=== PATIENT | male | born 1985 | race Caucasian/White ===

== ENCOUNTER 2019-06-03 09:43 | Outpatient (RCR) | payer MEDICARE, MEDICAID, SELFPAY | END 2019-06-21 00:01 | LOC: WOUND 09:43 | PROVIDERS: Family Provider Internal Medicine; Visit Provider Surgery | DX: I96 Gangrene, not elsewhere classified (principal); L89.324 Pressure ulcer of left buttock, stage 4 | CPT/HCPCS: 11044; G0463 ==

== ENCOUNTER 2019-08-31 17:21 | Emergency (ER) | payer MEDICARE, MEDICAID, SELFPAY ==
[2019-08-31 17:55] VITALS: BP 124/78; PULSE 106; RESP 16; TEMP 37.2; O2SAT 97; BMI 22.8
[2019-08-31 18:36] LABS: Basophils % 0.4 %; Eosinophils # 0.3 10^3/uL (0.0-0.8); Eosinophils % 2.9 %; Hematocrit 43.9 % (42.0-52.0); Hemoglobin 14.2 g/dL (11.7-16.6); Lymphocytes # 2.1 10^3/uL (0.8-4.8); Lymphocytes % 22.2 %; Mean Corpuscular HGB Conc 32.3 g/dL (30.0-36.0); Mean Corpuscular Hemoglobin 29.4 pg (28.0-34.0); Mean Corpuscular Volume 90.9 fL (80-94); Mean Platelet Volume 9.7 fL (7.4-10.4); Monocytes # 0.8 10^3/uL (0.2-0.9); Monocytes % 8.2 %; Neutrophils # 6.3 10^3/uL (1.8-7.7); Neutrophils % 65.9 %; Nucleated Red Blood Cells % 0 %; Platelet Count 277 10^3/cmm (130-400); Red Blood Count 4.83 10^6/uL (4.1-5.3); Red Cell Distribution Width 14.5 % (12.1-15.1); White Blood Count 9.6 10^3/uL (4.0-10.0)
[2019-08-31 18:50] LABS: Alanine Aminotransferase 11 U/L (0-41); Alkaline Phosphatase 103 IU/L (40-130); Anion Gap 14.9 (5-19); Aspartate Amino Transferase 13 U/L (0-40); Blood Urea Nitrogen 7 mg/dL (6-20); Calcium 9.5 mg/dL (8.5-10.5); Carbon Dioxide 27 mmol/L (22-29); Chloride 97 mmol/L (98-107); Creatinine Clr Calc Pharmacy 148.3638; Globulin 3.6 g/dL (1.3-4.6); Glomerular Filtration Rate 129.1 mL/min (90-130); Glucose 95 mg/dL (65-115); Osmolality Calculated 276 mOsm/kg (285-295); Potassium 3.9 mmol/L (3.5-5.1); Sodium 135 mmol/L (136-145); Total Bilirubin 0.2 mg/dL (0.15-1.2); Total Protein 7.6 g/dL (6.6-8.7)
--- NOTE | 2019-08-31 19:36 | W.ED.ABDPA2 ---
HPI - Abdominal Pain General: Chief Complaint: Abdominal Pain Stated Complaint: ABD PAIN Time Seen by Provider: 08/31/19 19:30 Source: patient Mode of arrival: ambulatory Limitations: no limitations History of Present Illness: HPI narrative: Patient comes in today with complaints of fever on and off since Thursday. Patient appears well. Patient appears in no pain. Patient is a paraplegic and has a chronic wound ulcer to the left hip area. Respirations are even. Vital signs are normal. Associated Symptoms: Reports fever(s) Review of Systems General: Reports: 10 or more systems reviewed and unremarkable except in HPI and below Const: Reports: fever PFSH ED PFSH: Social History Smoking and tobacco status: current every day smoker Physical Exam Const: COMMON NORMALS: no apparent distress and oriented x3 GENERAL APPEARANCE: cooperative HENMT: COMMON NORMALS: normocephalic, external ears normal, EAC's normal, TM's normal bilaterally and external nose normal HEAD & SCALP: normal to inspection and normocephalic FACE & SINUS: normal facial exam NOSE: external nose normal GENERAL EAR: hearing not grossly impaired EXTERNAL EAR: Yes external ears normal EXTERNAL AUDITORY CANAL: EAC's normal TYMPANIC MEMBRANE: TM's normal bilaterally MOUTH: oral and palatal mucosa normal THROAT: posterior oropharynx normal Eye: COMMON NORMALS: PERRL and EOMs intact bilaterally PUPIL: Yes PERRL Neck/C-Spine: COMMON NORMALS: full ROM and no lymphadenopathy Lymph: LYMPHATIC: no lymphedema noted Chest: COMMONS NORMALS: inspection of chest normal and palpation of chest normal Resp: COMMON NORMALS: normal respiratory effort and clear to auscultation bilaterally AUSCULTATION: clear to auscultation bilaterally Cardio: COMMON NORMALS: regular rate and regular rhythm RATE: regular rate RHYTHM: regular rhythm GI: COMMON NORMALS: normal to inspection, nondistended, normoactive bowel sounds and non-tender : COMMON NORMALS: Yes no CVA tenderness BLADDER/KIDNEY EXAM: Yes no CVA tenderness Back/Pelvis: COMMON NORMALS: no CVA tenderness and thoracic and lumbar spine normal to inspection Extremity: COMMON NORMALS: normal to inspection GENERAL: No edema Neuro: COMMON NORMALS: oriented x3, moves all extremities and no focal motor deficits Psych: COMMON NORMALS: mental status grossly normal and cooperative Skin: NARRATIVE SKIN EXAM: Examination of the wound to the left buttock notes a packed wound with no surrounding area of tissue redness or discoloration. Course Vital Signs: Vital signs: Vital Signs Temperature 99 F 08/31/19 17:55 Pulse Rate 106 H 08/31/19 17:55 Respiratory Rate 16 08/31/19 17:55 Blood Pressure 124/78 08/31/19 17:55 Pulse Oximetry 97 08/31/19 17:55 MDM - Abdominal Pain MDM Narrative: Medical decision making narrative: Patient comes in today with complaints of occasional fever over the last 3 to 4 days. Patient appears well. Patient appears no acute distress. Patient is at this time homeless. On exam patient's abdomen soft nontender. Respirations are even lungs are clear to auscultation. Patient has a chronic decubitus ulcer to the left hip that is draining clear fluid and has packing without any signs of surrounding redness were fever. Differential diagnosis includes sepsis, wound infection, urinary tract infection, pneumonia, malingering. Laboratory values noted no elevation white blood cell count. Sodium was 135 and potassium 3.9. Lactate was 1.4. Vital signs were normal. Urinalysis did have some nitrates in it but otherwise was similar to previous labs. Reviewed exam with patient with recommendations for 7-day course of Bactrim for the urinalysis abnormality. Otherwise patient had no other significant signs of infection. CT scan of the pelvis noted no significant changes and suggestive of a chronic osteomyelitis to the hip area of the left side which was not significant for any changes. Patient reports understanding of care plan and need for follow-up or return as needed for worsening signs or symptoms. Lab Data: Labs: Lab Results 08/31/19 08/31/19 08/31/19 Range/Units 18:25 18:25 18:25 WBC 9.6 (4.0-10.0) 10^3/ uL RBC 4.83 (4.1-5.3) 10^6/u L Hgb 14.2 (11.7-16.6) g/dL Hct 43.9 (42.0-52.0) % MCV 90.9 (80-94) fL MCH 29.4 (28.0-34.0) pg MCHC 32.3 (30.0-36.0) g/dL RDW 14.5 (12.1-15.1) % Plt Count 277 (130-400) 10^3/c mm MPV 9.7 (7.4-10.4) fL Neut % (Auto) 65.9 % Lymph % (Auto) 22.2 % [place] % (Auto) 8.2 % Eos % (Auto) 2.9 % Baso % (Auto) 0.4 % Neut # (Auto) 6.3 (1.8-7.7) 10^3/u L Lymph # (Auto) 2.1 (0.8-4.8) 10^3/u L [place]wood # (Auto) 0.8 (0.2-0.9) 10^3/u L Eos # (Auto) 0.3 (0.0-0.8) 10^3/u L Baso # (Auto) 0.0 (0.0-0.1) 10^3/u L Nucleated RBC % (a uto) 0 % Nucleated RBCs # 0.0 /100WBC Sodium 135 L (136-145) mmol/L Potassium 3.9 (3.5-5.1) mmol/L Chloride 97 L (98-107) mmol/L Carbon Dioxide 27 (22-29) mmol/L Anion Gap 14.9 (5-19) BUN 7 (6-20) mg/dL Creatinine 0.7 (0.7-1.2) mg/dL GFR Calculation 129.1 (90-130) mL/min Glucose 95 (65-115) mg/dL Calculated Osmolal ity 276 L (285-295) mOsm/k g Lactic Acid 1.3 (0.5-2.2) mmol/L Calcium 9.5 (8.5-10.5) mg/dL Total Bilirubin 0.2 (0.15-1.2) mg/dL AST 13 (0-40) U/L ALT 11 (0-41) U/L Alkaline Phosphata se 103 (40-130) IU/L Total Protein 7.6 (6.6-8.7) g/dL Albumin 4.0 (3.5-5.2) g/dL Globulin 3.6 (1.3-4.6) g/dL Urine Color (Yellow) Urine Appearance (CLEAR) Urine pH (5-7) Ur Specific Gravit y (1.005-1.030) Urine Protein (Negative) Urine Glucose (UA) (Normal) Urine Ketones (Negative) Urine Blood (Negative) Urine Nitrate (Negative) Urine Bilirubin (NEGATIVE) Prot Sulfosalicyli c Acd Urine Urobilinogen (Negative) mg/dL Ur Leukocyte [place] (Negative) Urine RBC (0-2) /hpf Urine WBC (0-5) /hpf Ur Squamous Epith Cells (0-5) Amorphous Sediment Urine Bacteria (NONE) 08/31/19 Range/Units 19:56 WBC (4.0-10.0) 10^3/ uL RBC (4.1-5.3) 10^6/u L Hgb (11.7-16.6) g/dL Hct (42.0-52.0) % MCV (80-94) fL MCH (28.0-34.0) pg MCHC (30.0-36.0) g/dL RDW (12.1-15.1) % Plt Count (130-400) 10^3/c mm MPV (7.4-10.4) fL Neut % (Auto) % Lymph % (Auto) % [place]wood % (Auto) % Eos % (Auto) % Baso % (Auto) % Neut # (Auto) (1.8-7.7) 10^3/u L Lymph # (Auto) (0.8-4.8) 10^3/u L [place]wood # (Auto) (0.2-0.9) 10^3/u L Eos # (Auto) (0.0-0.8) 10^3/u L Baso # (Auto) (0.0-0.1) 10^3/u L Nucleated RBC % (a uto) % Nucleated RBCs # /100WBC Sodium (136-145) mmol/L Potassium (3.5-5.1) mmol/L Chloride (98-107) mmol/L Carbon Dioxide (22-29) mmol/L Anion Gap (5-19) BUN (6-20) mg/dL Creatinine (0.7-1.2) mg/dL GFR Calculation (90-130) mL/min Glucose (65-115) mg/dL Calculated Osmolal ity (285-295) mOsm/k g Lactic Acid (0.5-2.2) mmol/L Calcium (8.5-10.5) mg/dL Total Bilirubin (0.15-1.2) mg/dL AST (0-40) U/L ALT (0-41) U/L Alkaline Phosphata se (40-130) IU/L Total Protein (6.6-8.7) g/dL Albumin (3.5-5.2) g/dL Globulin (1.3-4.6) g/dL Urine Color Yellow (Yellow) Urine Appearance Hazy A (CLEAR) Urine pH 8 H (5-7) Ur Specific Gravit y 1.020 (1.005-1.030) Urine Protein Neg (Negative) Urine Glucose (UA) Norm (Normal) Urine Ketones Negative (Negative) Urine Blood 3+ H (Negative) Urine Nitrate Positive H (Negative) Urine Bilirubin Neg (NEGATIVE) Prot Sulfosalicyli c Acd Positive Urine Urobilinogen Norm (Negative) mg/dL Ur Leukocyte [place] 2+ H (Negative) Urine RBC 5-10 H (0-2) /hpf Urine WBC 15-25 H (0-5) /hpf Ur Squamous Epith Cells 0-4 H (0-5) Amorphous Sediment 1+ Urine Bacteria 3+ H (NONE) Discharge Plan Discharge Patient Disposition: Home, Self-Care Clinical Impression: UTI (urinary tract infection) due to urinary indwelling Peña catheter Qualifiers: Indwelling urinary catheter type: unspecified Encounter type: initial encounter Qualified Code(s): T83.511A - Infection and inflammatory reaction due to indwelling urethral catheter, initial encounter Condition: Stable Prescriptions: New Bactrim DS 800-160 mg tablet 1 tab PO BID 7 Days Qty: 14 RF: 0 No Action ondansetron HCl 4 mg tablet 4 mg PO DAILY RF: 0 baclofen 20 mg tablet 60 mg PO BID RF: 0 alprazolam 0.5 mg tablet 0.5 mg PO DAILY RF: 0 pantoprazole 40 mg tablet,delayed release (DR/EC) 40 mg PO DAILY RF: 0 gabapentin 300 mg capsule 900 mg PO BID RF: 0 amoxicillin-pot clavulanate 875-125 mg tablet 1 tab PO DAILY RF: 0 duloxetine 30 mg capsule,delayed release(DR/EC) 30 mg PO BEDTIME RF: 0 duloxetine 60 mg capsule,delayed release(DR/EC) 60 mg PO DAILY RF: 0 levetiracetam 500 mg tablet extended release 24 hr 500 mg PO DAILY RF: 0 Discharge Orders: Discharge Order (Routine); Ordered 08/31/19 Ordered By: Roberto Zavala Referrals: Broderick Pope MD [Primary Care Provider] - Discharge Diet: Usual diet Discharge Activity: Increase activity as tolerated Activity Restrictions/Additional Instructions: Continue with routine care Antibiotics as directed Follow-up with primary care Return to ER for worsening symptoms or new concerns Coding Level of Care Code ED Diamond Wheel 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
--- NOTE | 2019-08-31 19:42 | XR_ITS ---
WS: [id number] Portable AP upright chest, 08/31/2019 Clinical Data: fever Comparison: Portable chest, 01/19/2019. Findings: No nodules, masses or effusions are seen. The heart is normal. The pulmonary vascularity is not increased. No pneumonia or pneumothorax is seen. There is a posterior lumbar fusion extending fr om T9 through L2 unchanged. XR/XR chest 1V portable [id number] Impression: Negative chest.
--- NOTE | 2019-08-31 19:44 | CTR_ITS ---
PROCEDURE INFORMATION: Exam: CT Abdomen And Pelvis With Contrast Exam date and time: 08/31/2019 7:53 PM Age: 33 years old Clinical indication: Other: Sore left buttock; Prior surgery; Surgery type: Mónica filter, thoralumbar; Additional info: Abd paink fever, left buttock chronic wound TECHNIQUE: Imaging protocol: Computed tomography of the abdomen and pelvis with intravenous contrast. Total DLP: 776.34 mGy-cm Radiation optimization: All CT scans at this facility use at least one of these dose optimization techniques: automated exposure control; mA and/or kV adjustment per patient size (includes targeted exams where dose is matched to clinical indication); or iterative reconstruction. Contrast material: OMNI 300; Contrast volume: 95 ml; Contrast route: IV; COMPARISON: CT pelvis w con* [id number] 03/30/2019 3:00 PM FINDINGS: Tubes, catheters and devices: A catheter is present in the urinary bladder. Liver: Normal. No mass. Gallbladder and bile ducts: Multiple gall stones are present in the gallbladder. No biliary ductal dilatation. Pancreas: Normal. No ductal dilation. Spleen: Normal. No splenomegaly. Adrenals: Normal. No mass. Kidneys and ureters: A small 9 mm left renal cyst is noted. The right kidney appears normal. No hydronephrosis. Stomach and bowel: A large amount of stool is present in the colon. No intestinal obstruction. Appendix: The appendix is normal. Intraperitoneal space: Unremarkable. No free air. No significant fluid collection. Vasculature: An IVC filter is in place. Mild atherosclerotic changes are observed in the abdominal aorta. No aneurysm. Lymph nodes: Unremarkable. No enlarged lymph nodes. Bladder: Prominent urinary bladder wall thickening is noted. Reproductive: Unremarkable as visualized. Bones/joints: Chronic T11 fracture is noted. Spinal fusion changes are observed in the thoracolumbar spine region. No acute fracture. Sclerosis and mild irregularity of the left ischial bone is seen which is likely related to chronic osteomyelitis. Soft tissues: Soft tissue defect is seen in the left gluteal region consistent with a decubitus ulcer. CT/CT abdomen pelvis w con* [id number] IMPRESSION: 1. Left gluteal decubitus ulcer and likely chronic left ischial bone osteomyelitis. 2. Cholelithiasis. 3. Constipation. 4. Urinary bladder wall thickening may be due to neurogenic bladder or possibly infection, correlate with urinalysis. Radiation Dose CTDIVOL = (mGy): DLP = 776.34 (mGy-cm)
[2019-08-31 20:03] LABS: Lactic Sepsis W/Reflex 1.3 mmol/L (0.5-2.2)
[2019-08-31] MEDS: iohexol 300 mg/mL 100 mL Btl 95 ML IV (20:08)
[2019-08-31 20:23] LABS: Add Urine Microscopic? YES; Bilirubin Urine Neg (NEGATIVE); Blood Urine 3+ (Negative); Glucose Urine UA Norm (Normal); Ketones Urine Negative (Negative); Leukocyte Esterase Urine 2+ (Negative); Nitrate Urine Positive (Negative); Protein Urine Neg (Negative); Urine Appearance Hazy (CLEAR); Urine Color Yellow (Yellow); Urobilinogen Urine Norm (Negative); pH Urine 8 (5-7)
[2019-08-31 20:32] LABS: Sulfosalicylic Acid Urine Positive; WBC Urine 15-25 /hpf (0-5)
[2019-08-31 20:33] LABS: Add Urine Culture? Yes; Amorphous Sediment Urine 1+; Bacteria Urine 3+; Squamous Epithelial Cell Urine 0-4 (0-5)
[2019-08-31 21:45] VITALS: BP 125/83; PULSE 97; RESP 16; O2SAT 98
== END 2019-08-31 21:45 | disposition home or self-care (01) ==
PROVIDERS: Emergency Medicine; Emergency Provider Nurse Practitioner Family; Family Provider Internal Medicine; PCP Internal Medicine
DX: T83.511A Infection and inflammatory reaction due to indwelling urethral catheter, initial encounter (principal); L89.229 Pressure ulcer of left hip, unspecified stage; F17.200 Nicotine dependence, unspecified, uncomplicated; Z59.0 Homelessness
CPT/HCPCS: 12345; 36415; 71045; 74177; 80053; 81001; 83605; 85025; 87040; 87077; 87086; 87186; 99282; 99283; Q9967

== ENCOUNTER 2019-10-14 09:45 | Outpatient (RCR) | payer MEDICARE, MEDICAID, SELFPAY | END 2019-10-20 23:59 | disposition home or self-care (01) | LOC: WOUND 09:45 | PROVIDERS: Family Provider Internal Medicine; PCP Internal Medicine; Visit Provider Surgery | DX: I96 Gangrene, not elsewhere classified (principal); L89.324 Pressure ulcer of left buttock, stage 4 | CPT/HCPCS: 11043; 99213; G0463 ==

== ENCOUNTER 2019-10-24 08:43 | Outpatient (RCR) | payer MEDICARE, MEDICAID, SELFPAY ==
--- NOTE | 2019-10-24 09:01 | NM_ITS ---
WS: [id number] MD bone 3 phase 42322 REASON FOR EXAM: PAIN,REDNESS, NON-HEALING ULCER OSTEOMYELITIS TECHNICAL: 25.9 mCi technetium labeled HDP FINDINGS: Activity is seen in the left initial tuberosity seen extends down to the pubic area progres sive uptake of the tracer seen in the 3 phases there does appear to be also soft tissue abnormalities surrounding these areas. NM/NM bone 3 phase [id number] IMPRESSION: 3 phase studies consistent with osteomyelitis with soft tissue inflammatory barrett nges. This involves the left ischium down to the on the left side. Distal pubis .
== END 2019-11-20 23:59 | disposition home or self-care (01) ==
LOC: RAD 08:43
PROVIDERS: Family Provider Internal Medicine; PCP Internal Medicine; Visit Provider Surgery
DX: M86.8X8 Other osteomyelitis, other site (principal); R10.2 Pelvic and perineal pain
CPT/HCPCS: 78315; A9561

== ENCOUNTER 2019-11-11 13:45 | Emergency (ER) | payer MEDICARE, MEDICAID, SELFPAY ==
[2019-11-11 13:50] VITALS: BP 124/87; PULSE 124; RESP 17; O2SAT 95; BMI 26.6
[2019-11-11 13:59] VITALS: BP 123/78; PULSE 115; RESP 15; O2SAT 96
--- NOTE | 2019-11-11 14:11 | XRR_ITS ---
PROCEDURE INFORMATION: Exam: XR Chest, 1 View Exam date and time: 11/11/2019 2:37 PM Age: 33 years old Clinical indication: Shortness of breath; Additional info: Chest pain, SOB TECHNIQUE: Imaging protocol: XR of the chest Views: 1 view. COMPARISON: CR XR chest 1V portable [id number] 08/31/2019 7:53 PM FINDINGS: Lungs: Unremarkable. No consolidation. Pleural space: Unremarkable. No pleural effusion. No pneumothorax. Heart/Mediastinum: Unremarkable. No cardiomegaly. Bones/joints: There are posterior fusion rods and pedicle screws in the lower thoracic spine. XR/XR chest 1V portable [id number] IMPRESSION: There are no acute concerning abnormalities.
--- NOTE | 2019-11-11 14:11 | ECG_ITS ---
Measurements Intervals [place] Rate: 118 P: 66 MA: 154 QRS: 91 QRSD: 86 T: 35 QT: 303 QTc: 425 SINUS TACHYCARDIA BORDERLINE RIGHT AXIS DEVIATION [QRS AXIS > 90] Compared to ECG 12/24/2018 03:44:33 No significant changes Electronically Signed On 11-11-2019 18:02:42 CDT by Ivy Shelton M.D. [email or web address]
[2019-11-11 14:55] LABS: Basophils % 0.5 %; Eosinophils # 0.2 10^3/uL (0.0-0.8); Eosinophils % 2.1 %; Hematocrit 46.7 % (42.0-52.0); Hemoglobin 15.8 g/dL (11.7-16.6); Lymphocytes # 2.3 10^3/uL (0.8-4.8); Lymphocytes % 25.5 %; Mean Corpuscular HGB Conc 33.8 g/dL (30.0-36.0); Mean Corpuscular Hemoglobin 30.9 pg (28.0-34.0); Mean Corpuscular Volume 91.4 fL (80-94); Mean Platelet Volume 10.4 fL (7.4-10.4); Monocytes # 0.7 10^3/uL (0.2-0.9); Monocytes % 7.7 %; Neutrophils # 5.7 10^3/uL (1.8-7.7); Nucleated Red Blood Cells % 0 %; Platelet Count 260 10^3/cmm (130-400); Red Blood Count 5.11 10^6/uL (4.1-5.3); Red Cell Distribution Width 15.7 % (12.1-15.1); White Blood Count 8.9 10^3/uL (4.0-10.0)
[2019-11-11 14:59] LABS: D Dimer <= 0.27 ug/mIFEU (0-0.59)
[2019-11-11 15:00] VITALS: BP 158/86; PULSE 107; RESP 13; O2SAT 97
[2019-11-11 15:06] LABS: Alanine Aminotransferase 17 U/L (0-41); Albumin Level 4.4 g/dL (3.5-5.2); Alkaline Phosphatase 126 IU/L (40-130); Blood Urea Nitrogen 9 mg/dL (6-20); Calcium 9.2 mg/dL (8.5-10.5); Carbon Dioxide 19 mmol/L (22-29); Chloride 96 mmol/L (98-107); Globulin 3.1 g/dL (1.3-4.6); Glomerular Filtration Rate 129.1 mL/min (90-130); Glucose 111 mg/dL (65-115); Osmolality Calculated 277 mOsm/kg (285-295); Sodium 135 mmol/L (136-145); Total Bilirubin 0.3 mg/dL (0.15-1.2); Total Protein 7.5 g/dL (6.6-8.7)
[2019-11-11 15:08] LABS: Aspartate Amino Transferase 22 U/L (0-40); Troponin(5th) Baseline 17 ng/mL (0-15)
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
[2019-11-11 16:08] LABS: Troponin 5 2HR 17.99 ng/mL (0-15); Troponin 5 2HR Delta 0.99 ABS# (0-10)
--- NOTE | 2019-11-11 16:11 | ECG_ITS ---
Measurements Intervals [place] Rate: 81 P: 46 TN: 169 QRS: 80 QRSD: 100 T: 44 QT: 336 QTc: 390 SINUS RHYTHM WITH MARKED SINUS ARRHYTHMIA Compared to ECG 12/24/2018 03:44:33 Sinus tachycardia no longer present Electronically Signed On 11-11-2019 18:25:31 CDT by Ivy Shelton M.D. [id number]
[2019-11-11 17:49] VITALS: BP 123/85; PULSE 112; RESP 16; O2SAT 95
[2019-11-11 18:45] LABS: D Dimer 0.34 ug/mIFEU (0-0.59)
== END 2019-11-11 17:50 | disposition home or self-care (01) ==
PROVIDERS: Emergency Provider Emergency Medicine; PCP Internal Medicine
DX: R07.89 Other chest pain (principal); L89.229 Pressure ulcer of left hip, unspecified stage; F17.210 Nicotine dependence, cigarettes, uncomplicated
CPT/HCPCS: 12345; 36415; 71045; 80053; 84484; 85025; 85378; 93005; 99282; 99284

== ENCOUNTER 2019-11-18 13:19 | Outpatient (CLI) | payer MEDICARE, MEDICAID, SELFPAY | END 2019-11-18 13:20 | disposition home or self-care (01) | LOC: WOUND 13:20 | PROVIDERS: PCP Internal Medicine; Visit Provider Surgery | DX: I96 Gangrene, not elsewhere classified (principal); L89.324 Pressure ulcer of left buttock, stage 4 | CPT/HCPCS: 11043 ==

== ENCOUNTER 2019-12-16 14:34 | Outpatient (CLI) | payer MEDICARE, MEDICAID, SELFPAY | END 2019-12-16 14:35 | disposition home or self-care (01) | LOC: WOUND 14:38 | PROVIDERS: Family Provider Internal Medicine; PCP Internal Medicine; Visit Provider Surgery | DX: I96 Gangrene, not elsewhere classified (principal); L89.324 Pressure ulcer of left buttock, stage 4 | CPT/HCPCS: 11044 ==

== ENCOUNTER 2019-12-21 13:34 | Outpatient (CLI) | payer MEDICARE, MEDICAID, SELFPAY | END 2019-12-21 13:35 | disposition home or self-care (01) | LOC: WOUND 13:34 | PROVIDERS: Family Provider Internal Medicine; PCP Internal Medicine; Visit Provider Thoracic Surgery (Cardiothoracic Vascular Surgery) | DX: Z51.89 Encounter for other specified aftercare (principal) | CPT/HCPCS: 99212 ==

== ENCOUNTER 2020-01-06 13:28 | Outpatient (CLI) | payer MEDICARE, MEDICAID, SELFPAY | END 2020-01-06 13:29 | disposition home or self-care (01) | LOC: WOUND 13:29 | PROVIDERS: Family Provider Internal Medicine; PCP Internal Medicine; Visit Provider Surgery | DX: I96 Gangrene, not elsewhere classified (principal); L89.324 Pressure ulcer of left buttock, stage 4 | CPT/HCPCS: 11043 ==

== ENCOUNTER 2020-02-28 16:58 | Outpatient (CLI) | payer MEDICARE, MEDICAID, SELFPAY ==
[2020-02-28 17:19] LABS: Basophils # 0.1 10^3/uL (0.0-0.1); Basophils % 0.4 %; Eosinophils # 0.4 10^3/uL (0.0-0.8); Eosinophils % 2.9 %; Hematocrit 47.8 % (42.0-52.0); Hemoglobin 15.6 g/dL (11.7-16.6); Lymphocytes # 1.7 10^3/uL (0.8-4.8); Lymphocytes % 14.3 %; Mean Corpuscular HGB Conc 32.6 g/dL (30.0-36.0); Mean Corpuscular Volume 94.8 fL (80-94); Mean Platelet Volume 10.5 fL (7.4-10.4); Monocytes # 0.7 10^3/uL (0.2-0.9); Monocytes % 5.5 %; Neutrophils # 9.28 10^3/uL (1.8-7.7); Neutrophils % 76.6 %; Nucleated Red Blood Cells % 0 %; Platelet Count 286 10^3/cmm (130-400); Red Blood Count 5.04 10^6/uL (4.1-5.3); Red Cell Distribution Width 14.6 % (12.1-15.1); White Blood Count 12.1 10^3/uL (4.0-10.0)
[2020-02-28 17:56] LABS: Alanine Aminotransferase 14 U/L (0-41); Albumin Level 4.5 g/dL (3.5-5.2); Alkaline Phosphatase 122 IU/L (40-130); Anion Gap 19.6 (5-19); Aspartate Amino Transferase 15 U/L (0-40); Blood Urea Nitrogen 7 mg/dL (6-20); C Reactive Protein 32.3 mg/L (0.0-4.9); Calcium 9.1 mg/dL (8.5-10.5); Carbon Dioxide 24 mmol/L (22-29); Chloride 100 mmol/L (98-107); Globulin 3.3 g/dL (1.3-4.6); Glomerular Filtration Rate 128.3 mL/min (90-130); Glucose 179 mg/dL (65-115); Osmolality Calculated 290 mOsm/kg (285-295); Potassium 3.6 mmol/L (3.5-5.1); Prealbumin 17.8 mg/dL (20-40); Sodium 140 mmol/L (136-145); Total Bilirubin 0.2 mg/dL (0.15-1.2); Total Protein 7.8 g/dL (6.6-8.7)
[2020-02-28 18:02] LABS: Erythrocyte Sedimentation Rate 34 mm/hr (0-10)
== END 2020-02-28 16:59 | disposition home or self-care (01) ==
LOC: LAB 17:00
PROVIDERS: Family Provider Internal Medicine; PCP Internal Medicine; Visit Provider Internal Medicine
DX: L89.329 Pressure ulcer of left buttock, unspecified stage (principal)
CPT/HCPCS: 80053; 84134; 85025; 85651; 86140

== ENCOUNTER 2020-03-04 15:51 | Emergency (ER) | payer MEDICARE, MEDICAID, SELFPAY ==
[2020-03-04 16:09] VITALS: BP 106/80; PULSE 130; RESP 16; TEMP 37.3; O2SAT 95; BMI 27.3
--- NOTE | 2020-03-04 16:22 | ED_ITS ---
HPI - Skin/Abscess/Foreign Bdy General: Chief complaint: Skin/Abscess/Foreign Body Stated complaint: SORES ALL OVER Time Seen by Provider: 03/04/20 16:10 History of Present Illness: HPI narrative: Patient had a sore in his right arm developed some more sores spots that look probably like bug bites he thinks he needs to get red area on his knee is worried about brown recluse bite has history of staph. He is a paraplegic. Also has a indwelling Peña and said he said frequent bladder infections. MD complaint: abscess/boil Onset (ago): day(s) Tetanus up to date: yes Location: RUE and LLE Severity: mild Severity scale (1-10): 3 Quality: aching Associated symptoms: Deny chills, fever(s), nausea or vomiting Review of Systems Const: Denies: fever(s), chills or body aches Eyes: Denies: change in vision or blurry vision ENMT: Denies: throat pain or nasal congestion Card: Denies: chest pain or dyspnea on exertion Resp: Denies: dyspnea, productive cough or non-productive cough GI: Denies: abdominal pain, nausea or vomiting : Denies: difficulty urinating Musc: Denies: extremity pain Skin/Breast: Reports: erythema and skin swelling (Multiple small abscesses right forearm and has redness to his left knee he states possible brown recluse bite); Denies: rash Neuro: Denies: headache(s) Psych: Denies: anxiety or depression Aayush/Lymph: Denies: easy bruising PFSH ED PFSH: Family History Mother Chronic kidney disease (CKD) Other Anemia CAD (coronary artery disease) Diabetes Hypertension Social History Smoking and tobacco status: current every day smoker Alcohol intake: current Alcohol intake frequency: holidays/special occasions only Marital status: Current occupational status: disabled History of recent travel: No Current gender identity: Male Physical Exam Const: COMMON NORMALS: no acute distress, average body habitus and patient oriented x3 HENMT: COMMON NORMALS: normocephalic HEAD & SCALP: normal to inspection and normocephalic FACE & SINUS: normal facial exam Eye: COMMON NORMALS: conjunctivae normal GENERAL EYE: appearance normal, both eyes and all related structures CONJUNCTIVA: Yes conjunctivae normal Neck/C-Spine: COMMON NORMALS: no JVD Chest: COMMONS NORMALS: normal inspection of the chest Resp: COMMON NORMALS: normal respiratory effort and clear to auscultation bilaterally AUSCULTATION: clear to auscultation bilaterally Cardio: COMMON NORMALS: no JVD, regular rate and regular rhythm RATE: regular rate RHYTHM: regular rhythm GI: COMMON NORMALS: Normal to inspection, nondistended, normoactive bowel sounds present Extremity: COMMON NORMALS: normal to inspection and full ROM Neuro: COMMON NORMALS: patient oriented x3 Skin: NARRATIVE SKIN EXAM: Patient has small pimples to his right forearm and a couple of larger cyst /abscesses. And then has redness to his left knee is very superficial bright red with a bite leticia in the center Course Vital Signs: Vital signs: Vital Signs Temperature 99.1 F 03/04/20 16:09 Pulse Rate 70 03/04/20 17:03 Respiratory Rate 14 03/04/20 17:03 Blood Pressure 145/78 03/04/20 17:03 Pulse Oximetry 98 03/04/20 17:03 MDM - Skin/Abscess/Foreign Bdy Lab Data: Labs: Lab Results 03/04/20 03/04/20 03/04/20 Range/Units 16:30 16:30 16:32 WBC 11.0 H (4.0-10.0) 10^3/ uL RBC 4.79 (4.1-5.3) 10^6/u L Hgb 14.9 (11.7-16.6) g/dL Hct 45.3 (42.0-52.0) % MCV 94.6 H (80-94) fL MCH 31.1 (28.0-34.0) pg MCHC 32.9 (30.0-36.0) g/dL RDW 14.5 (12.1-15.1) % Plt Count 260 (130-400) 10^3/c mm MPV 10.0 (7.4-10.4) fL Neut % (Auto) 72.1 % Lymph % (Auto) 17.0 % [place] % (Auto) 7.7 % Eos % (Auto) 2.3 % Baso % (Auto) 0.5 % Neut # (Auto) 7.95 H (1.8-7.7) 10^3/u L Lymph # (Auto) 1.9 (0.8-4.8) 10^3/u L [place]gard # (Auto) 0.9 (0.2-0.9) 10^3/u L Eos # (Auto) 0.3 (0.0-0.8) 10^3/u L Baso # (Auto) 0.1 (0.0-0.1) 10^3/u L Nucleated RBC % (a uto) 0 % Nucleated RBCs # 0.0 /100WBC Sodium 137 (136-145) mmol/L Potassium 3.2 L (3.5-5.1) mmol/L Chloride 99 (98-107) mmol/L Carbon Dioxide 21 L (22-29) mmol/L Anion Gap 20.2 H (5-19) BUN 5 L (6-20) mg/dL Creatinine 0.7 (0.7-1.2) mg/dL GFR Calculation 128.3 (90-130) mL/min Glucose 173 H (65-115) mg/dL Calculated Osmolal ity 284 L (285-295) mOsm/k g Calcium 8.9 (8.5-10.5) mg/dL Urine Color Colorless (Yellow) Urine Appearance Clear (CLEAR) Urine pH 9 H (5-7) Ur Specific Gravit y 1.010 (1.005-1.030) Urine Protein Neg (Negative) Urine Glucose (UA) Norm (Normal) Urine Ketones Negative (Negative) Urine Blood 2+ H (Negative) Urine Nitrate Positive H (Negative) Urine Bilirubin Neg (Negative) Prot Sulfosalicyli c Acd Negative (Negative) Urine Urobilinogen Norm (Negative) mg/dL Ur Leukocyte [place] 2+ H (Negative) Urine RBC 0-4 H (0-2) /hpf Urine WBC 5-10 H (0-5) /hpf Ur Squamous Epith Cells None (0-5) /hpf Amorphous Sediment 1+ /hpf Urine Bacteria 2+ H (NONE) /hpf Discharge Plan Discharge Patient Disposition: Home Clinical Impression: Acute UTI, Abscess Condition: Stable Prescriptions: New clindamycin HCl 300 mg capsule 300 mg PO TID 7 Days Qty: 21 RF: 0 No Action Dexilant 30 mg capsule,biphase delayed releas 30 mg PO DAILY Qty: 30 RF: 3 gabapentin 300 mg capsule 900 mg PO BID Qty: 180 RF: 3 baclofen 20 mg tablet 60 mg PO TID Qty: 90 RF: 3 alprazolam 0.5 mg tablet 0.5 mg PO DAILY Qty: 30 RF: 0 ondansetron HCl 4 mg tablet 4 mg PO DAILY RF: 0 levetiracetam 500 mg tablet extended release 24 hr 1,000 mg PO DAILY RF: 0 duloxetine 30 mg capsule,delayed release(DR/EC) 30 mg PO BEDTIME RF: 0 BC Pain Relief 845-65 mg Powder In Packet 1 ea PO Q6H PRN (Reason: Pain) RF: 0 duloxetine 60 mg capsule,delayed release(DR/EC) 60 mg PO DAILY RF: 0 Discharge Orders: Discharge Order (Routine); Ordered 03/04/20 Ordered By: Omega Bowden Referrals: Broderick Pope MD [Primary Care Provider] - Discharge Diet: Advance as tolerated Discharge Activity: Resume usual activity Patient Instructions: Urinary Tract Infection in Men (ED), Abscess (ED) Activity Restrictions/Additional Instructions: Follow-up with medical provider as directed. Take medications as prescribed. Return to the ER or your medical provider if condition worsens. Please read and understand discharge instructions. If any questions ask please. Discharge Date/Time: 03/04/20 17:03 Coding Level of Care Code ED Crop Nutrition Scientist for Amarjit Fwd Exam Comprehensive
[2020-03-04 16:39] LABS: Basophils # 0.1 10^3/uL (0.0-0.1); Basophils % 0.5 %; Eosinophils # 0.3 10^3/uL (0.0-0.8); Eosinophils % 2.3 %; Hematocrit 45.3 % (42.0-52.0); Hemoglobin 14.9 g/dL (11.7-16.6); Lymphocytes # 1.9 10^3/uL (0.8-4.8); Mean Corpuscular HGB Conc 32.9 g/dL (30.0-36.0); Mean Corpuscular Hemoglobin 31.1 pg (28.0-34.0); Mean Corpuscular Volume 94.6 fL (80-94); Monocytes # 0.9 10^3/uL (0.2-0.9); Monocytes % 7.7 %; Neutrophils # 7.95 10^3/uL (1.8-7.7); Neutrophils % 72.1 %; Nucleated Red Blood Cells % 0 %; Platelet Count 260 10^3/cmm (130-400); Red Blood Count 4.79 10^6/uL (4.1-5.3); Red Cell Distribution Width 14.5 % (12.1-15.1)
[2020-03-04 16:54] LABS: Urine Appearance Clear (CLEAR); Urine Color Colorless (Yellow)
[2020-03-04 16:55] LABS: Add Urine Microscopic? YES; Bilirubin Urine Neg (Negative); Blood Urine 2+ (Negative); Glucose Urine UA Norm (Normal); Ketones Urine Negative (Negative); Leukocyte Esterase Urine 2+ (Negative); Nitrate Urine Positive (Negative); Protein Urine Neg (Negative); Sulfosalicylic Acid Urine Negative (Negative); Urobilinogen Urine Norm (Negative); pH Urine 9 (5-7)
[2020-03-04 16:56] LABS: Add Urine Culture? Yes; Amorphous Sediment Urine 1+ /hpf; Bacteria Urine 2+ /hpf; RBC Urine 0-4 /hpf (0-2)
[2020-03-04 16:58] LABS: Anion Gap 20.2 (5-19); Blood Urea Nitrogen 5 mg/dL (6-20); Calcium 8.9 mg/dL (8.5-10.5); Carbon Dioxide 21 mmol/L (22-29); Chloride 99 mmol/L (98-107); Glomerular Filtration Rate 128.3 mL/min (90-130); Glucose 173 mg/dL (65-115); Osmolality Calculated 284 mOsm/kg (285-295); Potassium 3.2 mmol/L (3.5-5.1); Sodium 137 mmol/L (136-145)
[2020-03-04 17:03] VITALS: BP 145/78; PULSE 70; RESP 14; O2SAT 98
== END 2020-03-04 17:03 | disposition home or self-care (01) ==
PROVIDERS: Emergency Provider Nurse Practitioner Family; PCP Internal Medicine
DX: N39.0 Urinary tract infection, site not specified (principal); L02.413 Cutaneous abscess of right upper limb; F17.210 Nicotine dependence, cigarettes, uncomplicated
CPT/HCPCS: 12345; 36415; 80048; 81001; 85025; 87070; 87077; 87086; 87186; 99283

== ENCOUNTER → 2020-03-28 15:43 | Outpatient (BNVA) | payer MEDICARE, MEDICAID, SELFPAY | PROVIDERS: PCP Internal Medicine; Visit Provider Internal Medicine | DX: I10 Essential (primary) hypertension (principal); E11.9 Type 2 diabetes mellitus without complications; K75.81 Nonalcoholic steatohepatitis (NASH); Z72.0 Tobacco use | CPT/HCPCS: 80053; 80061; 83036; 84443; 85025 ==

== ENCOUNTER 2020-04-05 15:47 | Emergency (ER) | payer MEDICARE, MEDICAID, SELFPAY ==
[2020-04-05 16:11] VITALS: BP 124/89; PULSE 136; RESP 16; TEMP 37.1; O2SAT 96
--- NOTE | 2020-04-05 16:32 | ECG_ITS ---
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 Measurements Intervals [place] Rate: 131 P: 66 ID: [id number] QRS: 89 QRSD: 90 T: 50 QT: 291 QTc: 430 Interpretive Statements SINUS TACHYCARDIA ABNORMAL RHYTHM ECG Compared to ECG 11/11/2019 16:51:00 Sinus rhythm no longer present Sinus arrhythmia no longer present Electronically Signed On 04-05-2020 18:33:17 CDT by Orlando Henry M.D. [email or web address] centerHubei [place] [email or web address] [employer]/store/[id number] [email or web address]
--- NOTE | 2020-04-05 16:32 | W.ED.ARRPALP ---
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 Sulfosalicyli c Acd Negative (Negative) Urine Urobilinogen 1 H (Negative) mg/dL Ur Leukocyte [place] 2+ H (Negative) Urine RBC 0-4 H (0-2) /hpf Urine WBC 25-40 H (0-5) /hpf Ur Squamous Epith Cells 0-4 H (0-5) /hpf Amorphous Sediment Not Reportable Urine Bacteria 1+ H (NONE) /hpf Discharge Plan Discharge Patient Disposition: Home Clinical Impression: Cholelithiasis, Decubitus ulcer Abdominal pain Qualifiers: Abdominal location: right upper quadrant Qualified Code(s): R10.11 - Right upper quadrant pain Condition: Stable Prescriptions: New Bactrim DS 800-160 mg tablet 1 tab PO BID 10 Days Qty: 20 RF: 0 Protonix 40 mg tablet,delayed release (DR/EC) 40 mg PO DAILY 56 Days RF: 0 No Action spironolacton-hydrochlorothiaz [Aldactazide] 25-25 mg tablet 1 tab PO DAILY Qty: 90 RF: 3 Dexilant 30 mg capsule,biphase delayed releas 30 mg PO DAILY Qty: 30 RF: 3 Chantix Starting Month Box 0.5 mg (11)- 1 mg (42) tablets,dose pack See Rx Instructions PO PER PKG DIR Qty: 53 RF: 0 duloxetine 30 mg capsule,delayed release(DR/EC) 30 mg PO BEDTIME Qty: 30 RF: 3 alprazolam 0.5 mg tablet 0.5 mg PO DAILY Qty: 30 RF: 0 levetiracetam 500 mg tablet extended release 24 hr 500 mg PO BID RF: 0 BC Pain Relief 845-65 mg Powder In Packet 1 ea PO Q6H PRN (Reason: Pain) RF: 0 duloxetine 60 mg capsule,delayed release(DR/EC) 60 mg PO DAILY RF: 0 ondansetron HCl 4 mg tablet 4 mg PO Q6H PRN (Reason: Nausea) RF: 0 baclofen 20 mg tablet 60 mg PO BID RF: 0 Ambien 5 mg tablet 5 mg PO BEDTIME RF: 0 Discharge Orders: Discharge Order (Routine); Ordered 04/05/20 Ordered By: Cheri Cantu Referrals: Broderick Pope MD [Primary Care Provider] - Luis Miguel Catherine MD [Physician] - 1-3 days Discharge Diet: Advance as tolerated Discharge Activity: Resume usual activity Patient Instructions: Cholelithiasis, Abdominal Pain (ED) Discharge Date/Time: 04/05/20 20:03 Coding Level of Care Code ED 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
[2020-04-05 17:24] VITALS: BP 139/99; PULSE 122; RESP 18; O2SAT 97
[2020-04-05 17:32] LABS: Basophils # 0.1 10^3/uL (0.0-0.1); Basophils % 0.5 %; Eosinophils # 0.4 10^3/uL (0.0-0.8); Eosinophils % 3.2 %; Hematocrit 50.5 % (42.0-52.0); Lymphocytes # 2.4 10^3/uL (0.8-4.8); Lymphocytes % 21.4 %; Mean Corpuscular HGB Conc 33.7 g/dL (30.0-36.0); Mean Corpuscular Hemoglobin 31.6 pg (28.0-34.0); Mean Corpuscular Volume 93.9 fL (80-94); Mean Platelet Volume 9.9 fL (7.4-10.4); Monocytes # 1.1 10^3/uL (0.2-0.9); Monocytes % 10.3 %; Neutrophils # 7.15 10^3/uL (1.8-7.7); Neutrophils % 64.3 %; Nucleated Red Blood Cells % 0 %; Platelet Count 242 10^3/cmm (130-400); Red Blood Count 5.38 10^6/uL (4.1-5.3); Red Cell Distribution Width 15.2 % (12.1-15.1); White Blood Count 11.1 10^3/uL (4.0-10.0)
--- NOTE | 2020-04-05 17:39 | CTR_ITS ---
PROCEDURE INFORMATION: Exam: CT Abdomen And Pelvis With Contrast Exam date and time: 04/05/2020 6:08 PM Age: 34 years old Clinical indication: Abdominal pain; Localized; Right; Prior surgery; Surgery type: Back; Additional info: Abd pain TECHNIQUE: Imaging protocol: Computed tomography of the abdomen and pelvis with intravenous contrast. Radiation optimization: All CT scans at this facility use at least one of these dose optimization techniques: automated exposure control; mA and/or kV adjustment per patient size (includes targeted exams where dose is matched to clinical indication); or iterative reconstruction. Contrast material: OMNI 300; Contrast volume: 95 ml; Contrast route: INTRAVENOUS (IV); COMPARISON: CT abdomen pelvis w con* [id number] 08/31/2019 8:21 PM RADIATION DOSE METRICS: Total DLP (mGy-cm): 840.26 FINDINGS: Liver: There is a diffuse decrease in hepatic parenchymal density, consistent with mild fatty infiltration. Gallbladder and bile ducts: Multiple calcified gallstones are present. Pancreas: The pancreas is normal. Spleen: Normal. No splenomegaly. Adrenals: The adrenal glands are normal. The adrenal glands are normal. Kidneys and ureters: There is a simple cyst in the left kidney. The right kidney is normal. There is no evidence of hydronephrosis. There is no evidence of renal or ureteral calcifications. Stomach and bowel: There is no evidence of colitis/diverticulitis. There is no evidence of intestinal obstruction. Appendix: A normal appendix is identified. Intraperitoneal space: There is no evidence of free intraperitoneal fluid. There is no evidence of free intraperitoneal fluid. Vasculature: An inferior vena cava filter lies in appropriate position. Lymph nodes: There are few mildly prominent retroperitoneal lymph nodes measuring up to 8 x 10 mm. No adenopathy is identified. Urinary bladder: There is a Peña catheter within the urinary bladder. There is diffuse thickening of bladder wall which could represent cystitis, or neurogenic bladder. Reproductive: Unremarkable as visualized. Bones/joints: Postsurgical changes in the lumbar spine are stable compared with 08/31/2019. There are destructive changes and sclerosis involving the left ischial tuberosity and some adjacent heterotopic bone formation. The sclerosis has increased in there is also slight increase in the heterotopic bone formation. Findings are consistent with some chronic osteomyelitis probably with some healing compared with the previous. Soft tissues: There is a decubitus ulcer in the left gluteal region extending to the left ischial tuberosity. There is a 18 x 22 mm size cavity that appears to be packed with gauze. The cavity is smaller than on 08/31/2019 and there is increased thickening of the wall. This represents some healing of the decubitus ulcer. CT/CT abdomen pelvis w con* [id number] IMPRESSION: 1. Left decubitus ulcer and chronic osteomyelitis of the ischial tuberosity showing improvement compared with 08/31/2019. 2. Cholelithiasis 3. Thickening of the urinary bladder which could represent urinary tract infection versus neurogenic bladder. COMMENTS: Consistent with the [employer]'s Incidental Findings Committee white paper (J Am Maury Radiol 2018): Any incidental renal lesion less than 1 cm or classified as too small to characterize, or any incidental cystic renal lesion characterized as simple-appearing, is likely benign. No follow-up imaging is recommended for these lesions per consensus recommendations based on imaging criteria. Radiation Dose CTDIVOL = (mGy): DLP = 840.26 (mGy-cm)
[2020-04-05 17:43] LABS: INR 1.07 (0.8-1.2)
[2020-04-05 18:00] VITALS: BP 132/87; PULSE 121; RESP 21; O2SAT 96
[2020-04-05 18:02] LABS: Alanine Aminotransferase 20 U/L (0-41); Albumin Level 4.2 g/dL (3.5-5.2); Alkaline Phosphatase 124 IU/L (40-130); Aspartate Amino Transferase 20 U/L (0-40); Blood Urea Nitrogen 13 mg/dL (6-20); Calcium 9.6 mg/dL (8.5-10.5); Carbon Dioxide 25 mmol/L (22-29); Chloride 97 mmol/L (98-107); Globulin 3.3 g/dL (1.3-4.6); Glucose 194 mg/dL (65-115); Osmolality Calculated 283 mOsm/kg (285-295); Sodium 134 mmol/L (136-145); Thyroid Stimulating Hormone 3.19 uIU/mL (0.27-4.20); Total Bilirubin 0.3 mg/dL (0.15-1.2); Total Protein 7.5 g/dL (6.6-8.7)
[2020-04-05 18:04] LABS: Anion Gap 15.9 (5-19); Potassium 3.9 mmol/L (3.5-5.1)
[2020-04-05 18:05] LABS: Lipase 61 U/L (13-60)
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
[2020-04-05] MEDS: iohexol 300 mg/mL 100 mL Btl IV (18:47)
[2020-04-05] MEDS: sodium chloride 0.9% 1,000 ML 999 ML IV (19:11)
[2020-04-05 19:25] VITALS: BP 148/94; PULSE 110; RESP 18; O2SAT 97
[2020-04-05] MEDS: ketorolac 30 mg/mL INJ 15 MG IVP (19:45)
[2020-04-05 20:01] VITALS: BP 146/98; PULSE 90; RESP 16; O2SAT 96
[2020-04-05 20:04] LABS: Urine Appearance Clear (CLEAR); Urine Color Yellow (Yellow); pH Urine 8 (5-7)
[2020-04-05 20:05] LABS: Protein Urine Neg (Negative)
[2020-04-05 20:06] LABS: Add Urine Microscopic? YES; Bilirubin Urine Neg (Negative); Blood Urine Neg (Negative); Glucose Urine UA Norm (Normal); Ketones Urine Negative (Negative); Leukocyte Esterase Urine 2+ (Negative); Nitrate Urine Negative (Negative); Sulfosalicylic Acid Urine Negative (Negative); Urobilinogen Urine 1 mg/dL (Negative)
[2020-04-05 20:08] LABS: RBC Urine 0-4 /hpf (0-2); WBC Urine 25-40 /hpf (0-5)
[2020-04-05 20:09] LABS: Add Urine Culture? Yes; Bacteria Urine 1+ /hpf; Squamous Epithelial Cell Urine 0-4 /hpf (0-5)
--- NOTE | 2020-04-06 09:03 | DCPLANNER ---
manager of financial planning had message to schedule a follow up appointment for patient with Dr. Catherine. manager of financial planning called the office of Dr. Catherine, spoke with Cleo, gave clinic patients information. A follow up appointment is scheduled for Friday, April 24, 2020 at 10:[address] Catherine. manager of financial planning faxed patients information to the clinic. Clinic will call patient with appointment information.
--- NOTE | 2020-06-05 15:50 | DCPLANNER ---
Patient had a follow up appointment scheduled with Dr. Gavin office - patient did attend appointment.
== END 2020-04-05 20:03 | disposition home or self-care (01) ==
PROVIDERS: Family Medicine; Nurse Practitioner Family; Emergency Provider Emergency Medicine; PCP Internal Medicine
DX: K80.20 Calculus of gallbladder without cholecystitis without obstruction (principal); L89.329 Pressure ulcer of left buttock, unspecified stage; I10 Essential (primary) hypertension; G82.20 Paraplegia, unspecified; F17.210 Nicotine dependence, cigarettes, uncomplicated
CPT/HCPCS: 12345; 74177; 80053; 81001; 83690; 83735; 84443; 85025; 85610; 87077; 87086; 87186; 93005; 96361; 96374; 96375; 99283; 99284; J1885; J7030; Q9967

== ENCOUNTER → 2020-04-27 12:12 | Outpatient (BNVA) | payer MEDICARE, MEDICAID, SELFPAY | PROVIDERS: PCP Internal Medicine; Visit Provider Surgery | DX: Z11.59 Encounter for screening for other viral diseases (principal) | CPT/HCPCS: 87635 ==

== ENCOUNTER 2020-05-03 06:08 | Day surgery (SDC) | payer MEDICARE, MEDICAID, SELFPAY ==
[2020-05-03] VITALS (9 sets, daily range): BP systolic 114–158; BP diastolic 69–89; PULSE 106–122; RESP 16–22; TEMP 36.5–37; O2SAT 97–99
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
[2020-05-03] MEDS: ondansetron 2 mg/ML SDV 2 mL 4 MG IVP (07:28)
[2020-05-03] MEDS: sodium chloride 0.9% 1,000 ML 30 ML IV (07:35)
[2020-05-03] MEDS: clindamycin 900 MG/50 ML PREMIX 100 MG IV (07:57)
[2020-05-03 08:17] LABS: Alanine Aminotransferase 16 U/L (0-41); Albumin Level 4.1 g/dL (3.5-5.2); Alkaline Phosphatase 110 IU/L (40-130); Aspartate Amino Transferase 13 U/L (0-40); Globulin 3.8 g/dL (1.3-4.6); Total Bilirubin 0.3 mg/dL (0.15-1.2); Total Protein 7.9 g/dL (6.6-8.7)
--- NOTE | 2020-05-03 09:07 | SUR.PHASEI ---
0856 pt awake alert talkative denies pain and nausea vss , pt is paraphegic and legs are adjusted to pt comfort pt has large decub on coccyx area dressing is foam tape pt lying on rt side for comfort pillow to lower back. handoff at bedside with ad tubbs.
[2020-05-03] MEDS: morphine 4 mg/mL SDV 1 mL IVP (09:50)
--- NOTE | 2020-05-03 10:01 | PM.OP ---
Operative Report Date of procedure: May 03, 2020 Pre-op Diagnosis: Symptomatic cholelithiasis. Post-op diagnosis: same Procedure Done: Laparoscopic cholecystectomy. Specimens removed/disposition: Gallbladder. Surgeon: Luis Miguel Catherine Anesthesia: General Estimated blood loss (mL): 5 Complications: None. Condition: stable Disposition: PACU Procedure: The patient was brought to the Operating Room and was placed in a supine position on the Operating Room table. General endotracheal anesthesia was induced. The abdomen was prepped and draped in a sterile fashion. A small vertical incision was carried out in the inferior aspect of the umbilicus. Blunt dissection was carried out down to the fascia, which was grasped with a Dmitry clamp. A stay suture of 0 Vicryl was placed on either side of the midline and the midline fascia was incised. The underlying peritoneum was opened bluntly and the Shaihd port was placed directly into the peritoneal cavity and was held in place with the inflatable balloon. The peritoneal cavity was insufflated with carbon dioxide. The laparoscope was used to inspect the abdominal cavity. No gross abnormalities were noted other than some very light adhesions in the left upper quadrant. A 5 millimeter port was placed in the epigastrium under direct vision. Two 5-millimeter ports were placed on the right side of the abdomen under direct vision. The gallbladder was grasped and was elevated. The patient was found to have some light adhesions to the fundus of the gallbladder which were taken down using blunt dissection and a minimum of cautery to maintain hemostasis. Blunt dissection and hydrodissection were carried out in the infundibular region of the gallbladder and the cystic duct and cystic artery were identified. The gallbladder was partially removed from the liver bed using cautery and the spatula to confirm the anatomy before the structures were clipped and divided. The gallbladder was then removed from the liver bed using cautery and the spatula. A small hole was inadvertently made in the gallbladder during the dissection and some bile leaked into the subhepatic space but was quickly retrieved with suction. No stones were ever seen to have fallen from the gallbladder. After the gallbladder had been removed from the liver bed, the laparoscope was moved to the epigastric port and the gallbladder was removed from the peritoneal cavity through the umbilical port site. The stay sutures of Vicryl were tied to each other at the umbilicus, closing the defect so that it was airtight. The perihepatic spaces were irrigated with saline and the liver bed was reinspected. No ongoing problems were seen. The remaining ports were removed from the abdominal wall and the pneumoperitoneum was evacuated. All skin incisions were closed using inverted interrupted sutures of 4-0 Vicryl. Benzoin and Steri-Strips were placed over the incisions and Band-Aids followed. The patient was taken to the Recovery Area in stable condition postoperatively.
--- NOTE | 2020-05-03 20:12 | ANE.PACU2 ---
Inpatient post-anesthesia follow up: Airway intact: Yes Vital signs: Temperature 97.7 F Pulse Rate 107 Respiratory Rate 18 Blood Pressure 118/75 Pulse Oximetry 98 Oxygen Delivery Me thod Room Air Oxygen Flow Rate Fraction of Inspir ed Oxygen Hydration adequate: Yes Nausea and vomiting: No Pain level: 2 Mental status: Baseline
--- NOTE | 2020-05-07 10:09 | W.PM.OPSUD ---
Surgery/Procedure H&P Update DATE OF PROCEDURE: May 07, 2020 DATE H&P PERFORMED: 04/24/20 H&P UPDATE INFORMATION: No changes to prior documentation PREOP DIAGNOSIS: Symptomatic cholelithiasis. PLANNED PROCEDURE: Operation Date: 05/03/20 07:30 Proposed Procedures p Laparoscopic Cholecystectomy(Not Applicable) - Luis Miguel Catherine MD
== END 2020-05-03 10:39 | disposition home or self-care (01) ==
PROVIDERS: PCP Internal Medicine; Visit Provider Surgery
PROC: 0FT44ZZ Resection of Gallbladder, Percutaneous Endoscopic Approach (ICD-10-PCS; CPT 47562; principal; 2020-05-03 07:30)
DX: K80.20 Calculus of gallbladder without cholecystitis without obstruction (principal); I10 Essential (primary) hypertension; G82.20 Paraplegia, unspecified; R56.9 Unspecified convulsions; F17.210 Nicotine dependence, cigarettes, uncomplicated; Z66 Do not resuscitate
CPT/HCPCS: 47562; 12345; 36415; 80076; 88304; 96374; J1100; J2270; J2405; J2704; J2710; J3010; J3490; J7030

== ENCOUNTER 2020-06-04 19:13 | Outpatient (CLI) | payer MEDICARE, MEDICAID, SELFPAY ==
[2020-06-04 20:05] LABS: Alanine Aminotransferase 19 U/L (0-41); Albumin Level 4.4 g/dL (3.5-5.2); Alkaline Phosphatase 141 IU/L (40-130); Aspartate Amino Transferase 18 U/L (0-40); Blood Urea Nitrogen 13 mg/dL (6-20); Calcium 9.8 mg/dL (8.5-10.5); Carbon Dioxide 29 mmol/L (22-29); Chloride 95 mmol/L (98-107); Globulin 3.1 g/dL (1.3-4.6); Glucose 83 mg/dL (65-115); Osmolality Calculated 283 mOsm/kg (285-295); Sodium 137 mmol/L (136-145); Total Bilirubin 0.4 mg/dL (0.15-1.2); Total Protein 7.5 g/dL (6.6-8.7)
[2020-06-04 23:08] LABS: Prealbumin 25.4 mg/dL (20-40)
== END 2020-06-04 19:14 | disposition home or self-care (01) ==
LOC: LAB 19:17
PROVIDERS: PCP Internal Medicine; Visit Provider Internal Medicine
DX: L89.329 Pressure ulcer of left buttock, unspecified stage (principal)
CPT/HCPCS: 80053; 84134

== ENCOUNTER 2020-09-05 10:27 | Outpatient (CLI) | payer MEDICARE, MEDICAID, SELFPAY ==
[2020-09-05 11:07] LABS: Basophils # 0.1 10^3/uL (0.0-0.1); Basophils % 0.8 %; Eosinophils # 0.3 10^3/uL (0.0-0.8); Eosinophils % 3.4 %; Hematocrit 50.2 % (42.0-52.0); Hemoglobin 16.8 g/dL (11.7-16.6); Lymphocytes # 1.8 10^3/uL (0.8-4.8); Lymphocytes % 20.6 %; Mean Corpuscular HGB Conc 33.5 g/dL (30.0-36.0); Mean Corpuscular Hemoglobin 33.3 pg (28.0-34.0); Mean Corpuscular Volume 99.6 fL (80-94); Mean Platelet Volume 10.2 fL (7.4-10.4); Monocytes # 0.8 10^3/uL (0.2-0.9); Monocytes % 9.3 %; Neutrophils # 5.62 10^3/uL (1.8-7.7); Neutrophils % 65.6 %; Nucleated Red Blood Cells % 0 %; Platelet Count 274 10^3/cmm (130-400); Red Blood Count 5.04 10^6/uL (4.1-5.3); Red Cell Distribution Width 13.6 % (12.1-15.1); White Blood Count 8.6 10^3/uL (4.0-10.0)
[2020-09-05 11:10] LABS: Alanine Aminotransferase 19 U/L (0-41); Albumin Level 4.1 g/dL (3.5-5.2); Alkaline Phosphatase 115 IU/L (40-130); Anion Gap 15.6 (5-19); Aspartate Amino Transferase 20 U/L (0-40); Blood Urea Nitrogen 9 mg/dL (6-20); C Reactive Protein 26.2 mg/L (0.0-4.9); Calcium 9.6 mg/dL (8.5-10.5); Carbon Dioxide 27 mmol/L (22-29); Chloride 96 mmol/L (98-107); Globulin 3.8 g/dL (1.3-4.6); Glomerular Filtration Rate 153.3 mL/min (90-130); Glucose 121 mg/dL (65-115); Osmolality Calculated 280 mOsm/kg (285-295); Potassium 3.6 mmol/L (3.5-5.1); Sodium 135 mmol/L (136-145); Total Bilirubin 0.3 mg/dL (0.15-1.2); Total Protein 7.9 g/dL (6.6-8.7)
[2020-09-05 12:04] LABS: Erythrocyte Sedimentation Rate 21 mm/hr (0-10)
== END 2020-09-05 10:28 | disposition home or self-care (01) ==
LOC: LAB 10:29
PROVIDERS: PCP Internal Medicine; Visit Provider Internal Medicine
DX: L89.324 Pressure ulcer of left buttock, stage 4 (principal)
CPT/HCPCS: 80053; 85025; 85651; 86140

== ENCOUNTER 2020-10-02 06:00 | Outpatient (RCR) | payer MEDICARE, MEDICAID, SELFPAY | END 2020-10-02 23:00 | disposition home or self-care (01) | LOC: SOT 06:00 | PROVIDERS: PCP Internal Medicine; Referring Provider Family Medicine; Visit Provider Family Medicine | DX: G82.20 Paraplegia, unspecified (principal); L89.209 Pressure ulcer of unspecified hip, unspecified stage | CPT/HCPCS: 97167; 97530 ==

== ENCOUNTER 2020-11-16 15:17 | Outpatient (CLI) | payer MEDICARE, MEDICAID, SELFPAY ==
[2020-11-16 15:59] LABS: Basophils # 0.1 10^3/uL (0.0-0.1); Basophils % 0.6 %; Eosinophils # 0.5 10^3/uL (0.0-0.8); Eosinophils % 4.5 %; Hematocrit 45.6 % (42.0-52.0); Hemoglobin 15.7 g/dL (11.7-16.6); Lymphocytes # 2.1 10^3/uL (0.8-4.8); Lymphocytes % 20.8 %; Mean Corpuscular HGB Conc 34.4 g/dL (30.0-36.0); Mean Corpuscular Hemoglobin 33.7 pg (28.0-34.0); Mean Corpuscular Volume 97.9 fL (80-94); Monocytes # 0.8 10^3/uL (0.2-0.9); Monocytes % 7.9 %; Neutrophils # 6.67 10^3/uL (1.8-7.7); Neutrophils % 65.9 %; Nucleated Red Blood Cells % 0 %; Platelet Count 288 10^3/cmm (130-400); Red Blood Count 4.66 10^6/uL (4.1-5.3); Red Cell Distribution Width 13.2 % (12.1-15.1); White Blood Count 10.1 10^3/uL (4.0-10.0)
[2020-11-16 16:25] LABS: Alanine Aminotransferase 51 U/L (0-41); Albumin Level 4.3 g/dL (3.5-5.2); Alkaline Phosphatase 134 IU/L (40-130); Anion Gap 17.7 (5-19); Aspartate Amino Transferase 34 U/L (0-40); Blood Urea Nitrogen 6 mg/dL (6-20); C Reactive Protein 31.9 mg/L (0.0-4.9); Calcium 8.4 mg/dL (8.5-10.5); Carbon Dioxide 27 mmol/L (22-29); Chloride 96 mmol/L (98-107); Globulin 2.4 g/dL (1.3-4.6); Glucose 116 mg/dL (65-115); Osmolality Calculated 283 mOsm/kg (285-295); Potassium 3.7 mmol/L (3.5-5.1); Sodium 137 mmol/L (136-145); Total Bilirubin 0.3 mg/dL (0.15-1.2); Total Protein 6.7 g/dL (6.6-8.7)
[2020-11-16 17:03] LABS: Prealbumin 21.2 mg/dL (20-40)
[2020-11-16 17:39] LABS: Erythrocyte Sedimentation Rate 31 mm/hr (0-10)
== END 2020-11-16 15:18 | disposition home or self-care (01) ==
LOC: LAB 15:19
PROVIDERS: PCP Internal Medicine; Visit Provider Family Medicine
DX: L89.329 Pressure ulcer of left buttock, unspecified stage (principal)
CPT/HCPCS: 80053; 84134; 85025; 85651; 86140

== ENCOUNTER 2021-02-09 23:00 | Emergency (ER) | payer MEDICARE, MEDICAID, SELFPAY ==
[2021-02-09 23:32] VITALS: BP 121/77; PULSE 124; RESP 18; TEMP 36.9; O2SAT 95; BMI 28.8
[2021-02-10 00:21] VITALS: BP 120/70; PULSE 121; RESP 16; O2SAT 94
--- NOTE | 2021-02-10 00:52 | ED_ITS ---
HPI - Male Genitourinary General: Chief complaint: Urogenital-Male Stated complaint: cather issues Time Seen by Provider: 02/10/21 00:05 History of Present Illness: HPI Narrative: Patient has a tear of his glans penis from the catheter pulled on it appears may be happened yesterday. No significant bleeding. Patient is paraplegic. Catheter still in place. Complaint: other (Tear to glans penis) Onset (ago): day(s) Duration: constant Review of Systems Const: Denies: fever(s) : Reports: other (Tear to the glans penis from catheter pulling on it.) Psych: Denies: anxiety PFSH ED PFSH: Medical History (Updated 02/10/21 @ 00:52 by DARRION Rosales) HTN (hypertension) Paraplegia Family History Mother Chronic kidney disease (CKD) Other Anemia CAD (coronary artery disease) Diabetes Hypertension Social History Smoking and tobacco status: current every day smoker Alcohol intake: current Alcohol intake frequency: holidays/special occasions only Marital status: Current occupational status: disabled History of recent travel: No Current gender identity: Male Physical Exam Const: COMMON NORMALS: no acute distress GENERAL APPEARANCE: cooperative : PENIS: other (Patient has a tear to his glans penis from the base the urethra down throug) Psych: COMMON NORMALS: mental status grossly normal Course Vital Signs: Vital signs: Vital Signs Temperature 98.4 F 02/09/21 23:32 Pulse Rate 121 H 02/10/21 00:21 Respiratory Rate 16 02/10/21 00:21 Blood Pressure 120/70 02/10/21 00:21 Pulse Oximetry 94 02/10/21 00:21 MDM - Male MDM Narrative: Medical decision making narrative: Called and left a message x2 with Dr. Chin. Dr. Chin's not picked up on his messages. Spoke with Dr. Espino agreed that since this is greater than 2440 hrs. of age and follow-up outpatient appointment would be appropriate. Discharge Plan Discharge Patient Disposition: Home Clinical Impression: Penile laceration Qualifiers: Encounter type: initial encounter Qualified Code(s): S31.21XA - Laceration without foreign body of penis, initial encounter Condition: Stable Prescriptions: No Action spironolacton-hydrochlorothiaz [Aldactazide] 25-25 mg tablet 1 tab PO DAILY Qty: 90 RF: 3 hydrocodone-acetaminophen 5-325 mg tablet 1 tab PO BID PRN (Reason: pain) 30 Days Qty: 14 RF: 0 alprazolam 0.5 mg tablet 0.5 mg PO DAILY Qty: 30 RF: 0 baclofen 20 mg tablet 60 mg PO BID Qty: 180 RF: 12 trazodone 150 mg tablet 150 mg PO .qhs Qty: 90 RF: 3 polyethylene glycol 3350 [Miralax] 17 gram powder in packet 17 g PO DAILY Qty: 30 RF: 3 levetiracetam 500 mg tablet extended release 24 hr See Rx Instructions .ROUTE .COMPLEX Qty: 60 RF: 11 gabapentin 300 mg capsule 900 mg PO BID Qty: 180 RF: 1 zolpidem [Ambien] 5 mg tablet 5 mg PO BEDTIME Qty: 30 RF: 1 duloxetine 60 mg capsule,delayed release(DR/EC) 60 mg PO DAILY Qty: 30 RF: 3 bisacodyl 10 mg suppository 10 mg VT DAILY PRN (Reason: constipation) Qty: 12 RF: 0 pantoprazole [Protonix] 40 mg tablet,delayed release (DR/EC) 40 mg PO DAILY Qty: 90 RF: 3 duloxetine 30 mg capsule,delayed release(DR/EC) See Rx Instructions .ROUTE .COMPLEX Qty: 30 RF: 3 ondansetron HCl 4 mg tablet See Rx Instructions .ROUTE .COMPLEX Qty: 30 RF: 0 Chantix Starting Month Box 0.5 mg (11)- 1 mg (42) tablets,dose pack See Rx Instructions PO PER PKG DIR Qty: 53 RF: 0 BC Pain Relief 845-65 mg Powder In Packet 1 ea PO Q6H PRN (Reason: Pain) RF: 0 Discharge Orders: Discharge ED (Routine); Ordered 02/10/21 Ordered By: Omega Bowden Referrals: Broderick Pope MD [Primary Care Provider] - Discharge Diet: Usual diet Discharge Activity: Resume usual activity Activity Restrictions/Additional Instructions: You will be contacted by the hospital with an appointment for Dr. Chin's office. On Thursday you should receive a call. Keep area clean. Do not put any pressure on pulling the catheter. Coding Level of Care Code ED Radiologist Diagnostic for Amarjit Cancino
[2021-02-10 01:11] VITALS: RESP 16
--- NOTE | 2021-02-11 10:12 | DCPLANNER ---
export manager had message to schedule a follow up appointment for patient with Dr. Chin. export manager called the office of Dr. Chin, spoke with Renetta, gave clinic patients information. export manager was told that patients information would be printed and reviewed. Clinic will call patient with appointment information.
--- NOTE | 2021-02-12 08:04 | DCPLANNER ---
Patient has a follow up appointment scheduled for Monday, February 22, 2021 at 11:[address] Chin. Clinic will call patient with appointment information.
--- NOTE | 2021-03-06 14:40 | DCPLANNER ---
Patient had a follow up appointment scheduled for 02.22.[address] Chin - patient did attend appointment.
== END 2021-02-10 01:11 | disposition home or self-care (01) ==
PROVIDERS: Emergency Provider Nurse Practitioner Family; PCP Internal Medicine
DX: S31.21XA Laceration without foreign body of penis, initial encounter (principal); I10 Essential (primary) hypertension; G82.20 Paraplegia, unspecified; F17.200 Nicotine dependence, unspecified, uncomplicated; X58.XXXA Exposure to other specified factors, initial encounter; Z96.0 Presence of urogenital implants
CPT/HCPCS: 99281

== ENCOUNTER 2021-04-08 18:35 | Emergency (ER) | payer MEDICARE, MEDICAID, SELFPAY ==
--- NOTE | 2021-04-08 18:37 | XRR_ITS ---
PROCEDURE INFORMATION: Exam: XR Abdomen Exam date and time: 04/08/2021 6:37 PM Age: 35 years old Clinical indication: Constipation TECHNIQUE: Imaging protocol: XR of the abdomen. Views: Frontal supine view of the abdomen. 1 View. COMPARISON: CT abdomen pelvis w con* [id number] 04/05/2020 6:40 PM FINDINGS: Gastrointestinal tract: There is a moderate amount of colonic stool. No impaction. No ileus or obstruction. There is gas in the soft tissues projected over the left ischium and inferior pubic ramus compatible with the prior history of decubitus ulcer. Organs: Probable cholecystectomy clips are noted in the right upper quadrant. Vasculature: An inferior vena cava filter lies in appropriate position. Bones/joints: There are postoperative changes in the thoracolumbar spine have a satisfactory appearance. XR/XR KUB [id number] IMPRESSION: 1. There is a moderate amount of colonic stool. No impaction. 2. There is gas in the soft tissues projected over the left ischium and inferior pubic ramus compatible with the prior history of decubitus ulcer. COMMENTS: For patients with an IVC filter, recommend assessment for a management plan for the patient's IVC filter. If there is no established management plan, recommend referral to an interventional clinician on a nonemergent basis for evaluation. Radiation Dose CTDIVOL = (mGy): DLP = (mGy-cm)
[2021-04-08 19:08] VITALS: BP 122/85; PULSE 116; RESP 18; TEMP 37.1; O2SAT 96; BMI 26.6
--- NOTE | 2021-04-08 22:06 | W.ED.GENADLT ---
HPI - General Adult General: Chief complaint: Abdominal Pain Stated complaint: no bm past few days Time Seen by Provider: 04/08/21 21:28 History of Present Illness: HPI narrative: Patient is a 35-year-old male with history of paraplegia, chronic indwelling catheter who presents the emergency room for concerns of constipation x1 week. Patient tells me that he has been using laxative, docusate, suppository without any significant improvement in his constipation. Patient has been able to pass gas, tolerating p.o. without any difficulty. Patient has no history of prior cholecystectomy. Patient says that in the past, he usually is responsive to suppository, however has not had any improvement for the last week. Patient request for help with his constipation symptom. Patient denies any melena/hematochezia. No other symptoms today including chest pain, shortness breath, palpitation, fever/chills, cough, runny nose, sore throat. Onset:1 week ago Duration:1 week Location:home Severity:moderate Review of Systems Narrative: Constitutional: No fever, no chills. HEENT: No vision changes CV: No chest pain, no palpitations PULM: no cough, no dyspnea. GI: No abdominal pain, no N/V/D. +decreased stooling, +flatus intact : No dysuria MSKEL: No muscle pain SKIN: No new rashes, no lesions. NEURO: No headache, no focal weakness. HEME: No visible bruises PSYCH: Normal mood PFSH ED PFSH: Medical History Basal cell carcinoma HTN (hypertension) Paraplegia 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 UTI (urinary tract infection) Wound abscess Surgical History Hx of cholecystectomy Previous back surgery S/P ankle ligament repair Family History Mother , at age 60 Chronic kidney disease (CKD) Father , at age 71 Natural with unknown cause Other Anemia CAD (coronary artery disease) Diabetes Hypertension Social History Alcohol intake: current Alcohol intake frequency: holidays/special occasions only Marital status: Current occupational status: disabled History of recent travel: No Physical Exam Narrative: EXAM NARRATIVE: Head: Atraumatic Eyes: PERRL, conjunctiva without injection ENT: Mucous membrane moist NECK: Supple, ROM intact LUNGS: LCTAB, no crackles/rhonchi CV: RRR ABDOMEN: Soft, no focal TTP. NO guarding rebound, guarding, rigidity. No CVA tenderness to percussion. Neg Brewster/Neg McBurney's point tenderness, no suprabupic tenderness to palpation. EXTREMITY: Normal ROM SKIN: No rash or erythema NEURO: Awake and alert, no focal motor deficits PSYCH: Normal mood and affect Course Vital Signs: Vital signs: Vital Signs Temperature 98.8 F 04/08/21 19:08 Pulse Rate 116 H 04/08/21 19:08 Respiratory Rate 18 04/08/21 19:08 Blood Pressure 122/85 04/08/21 19:08 Pulse Oximetry 96 04/08/21 19:08 MDM - General Adult MDM Narrative: Medical decision making narrative: 35-year-old male presenting to emergency room with 1 week of constipation decreased stooling. On exam, patient is noted to be tachycardic on arrival. Rest of exam within normal limit. Shortly after evaluation by provider at bedside, patient decided to leave. Have offered patient blood work and a fleet enema in the ED, but patient elects to go home. Patient electing to leave AMA. Patient counseled regarding risks of leaving including severe morbidity, need for surgery, abdominal infection, or any other unwanted consequences of leaving against medical advice today. Patient verbalizes understanding of the risks and still wishes to leave AMA. Signed AMA paperwork. Patient advised that patient is welcome to return at any time. Patient was instructed that patient may come back if symptoms continue to persist and that emergent adverse conditions have not fully been ruled out. Patient is A&Ox3 and has capacity and is of sound mind to make decisions. Have given patient to Fleet enema to go home with. Have review how to use with patient. Since we are not doing this in the ED, I have given strict return precaution and warned patient of complications including perforation, bowel pain, bleeding, any other concerning complaints. I have given patient strict return precaution for any worsening symptoms of pain, diarrhea, melena or hematochezia, nausea/vomiting, any abdominal pain, or any new concerning complaints. Given patient's concern of constipation, patient request specifically for Fleet enema. 2 Fleet enemas have been given. Discharge Plan Discharge Patient Disposition: Left Against Medical Advice Clinical Impression: Decreased stooling Condition: Stable Prescriptions: No Action spironolacton-hydrochlorothiaz [Aldactazide] 25-25 mg tablet 1 tab PO DAILY Qty: 90 RF: 3 baclofen 20 mg tablet 60 mg PO BID Qty: 180 RF: 12 alprazolam 0.5 mg tablet 0.5 mg PO DAILY Qty: 30 RF: 5 trazodone 150 mg tablet 150 mg PO .qhs Qty: 90 RF: 3 hydrocodone-acetaminophen 5-325 mg tablet 1 tab PO BID PRN (Reason: pain) 30 Days Qty: 14 RF: 0 levetiracetam 500 mg tablet extended release 24 hr See Rx Instructions .ROUTE .COMPLEX Qty: 60 RF: 11 gabapentin 300 mg capsule 900 mg PO BID Qty: 180 RF: 1 zolpidem [Ambien] 5 mg tablet 5 mg PO BEDTIME Qty: 30 RF: 1 duloxetine 60 mg capsule,delayed release(DR/EC) 60 mg PO DAILY Qty: 30 RF: 3 pantoprazole [Protonix] 40 mg tablet,delayed release (DR/EC) 40 mg PO DAILY Qty: 90 RF: 3 ondansetron HCl 4 mg tablet See Rx Instructions .ROUTE .COMPLEX Qty: 30 RF: 0 bisacodyl 10 mg suppository 10 mg NE DAILY PRN (Reason: constipation) Qty: 12 RF: 3 duloxetine 30 mg capsule,delayed release(DR/EC) See Rx Instructions .ROUTE .COMPLEX Qty: 30 RF: 3 BC Pain Relief 845-65 mg Powder In Packet 1 ea PO Q6H PRN (Reason: Pain) RF: 0 Referrals: Broderick Pope MD [Primary Care Provider] - Discharge Diet: Advance as tolerated Discharge Activity: Resume usual activity Patient Instructions: Constipation (ED) Coding Level of Care Code ED Product Manufacturing Professional for Amarjit Cancino
== END 2021-04-08 23:05 | disposition left against medical advice (07) ==
PROVIDERS: Emergency Provider Emergency Medicine; PCP Internal Medicine
DX: K59.00 Constipation, unspecified (principal); Z53.21 Procedure and treatment not carried out due to patient leaving prior to being seen by health care provider; I10 Essential (primary) hypertension; G82.20 Paraplegia, unspecified
CPT/HCPCS: 74018; 99282

== ENCOUNTER 2021-04-19 12:03 | Outpatient (CLI) | payer MEDICARE, MEDICAID, SELFPAY ==
[2021-04-16 16:00] LABS: Basophils % 0.4 %; Eosinophils # 0.2 10^3/uL (0.0-0.8); Eosinophils % 1.9 %; Hematocrit 44.3 % (42.0-52.0); Hemoglobin 15.1 g/dL (11.7-16.6); Lymphocytes # 2.3 10^3/uL (0.8-4.8); Lymphocytes % 20.3 %; Mean Corpuscular HGB Conc 34.1 g/dL (30.0-36.0); Mean Corpuscular Hemoglobin 32.7 pg (28.0-34.0); Mean Corpuscular Volume 95.9 fl (80-94); Mean Platelet Volume 10.5 fL (7.4-10.4); Monocytes # 0.7 10^3/uL (0.2-0.9); Monocytes % 6.4 %; Neutrophils # 7.85 10^3/uL (1.8-7.7); Neutrophils % 70.5 %; Nucleated Red Blood Cells % 0 %; Platelet Count 249 10^3/cmm (130-400); Red Blood Count 4.62 10^6/uL (4.1-5.3); Red Cell Distribution Width 12.9 % (12.1-15.1); White Blood Count 11.1 10^3/uL (4.0-10.0)
[2021-04-16 16:21] LABS: Alanine Aminotransferase 21 U/L (0-41); Albumin Level 4.1 g/dL (3.5-5.2); Alkaline Phosphatase 97 IU/L (40-130); Anion Gap 13.8 (5-19); Aspartate Amino Transferase 14 U/L (0-40); Blood Urea Nitrogen 16 mg/dL (6-20); C Reactive Protein 21.4 mg/L (0.0-4.9); Calcium 9.3 mg/dL (8.5-10.5); Carbon Dioxide 30 mmol/L (22-29); Chloride 94 mmol/L (98-107); Globulin 3.4 g/dL (1.3-4.6); Glomerular Filtration Rate 109.4 mL/min (90-130); Glucose 122 mg/dL (65-115); Osmolality Calculated 282 mOsm/kg (285-295); Sodium 135 mmol/L (136-145); Total Bilirubin 0.2 mg/dL (0.15-1.2); Total Protein 7.5 g/dL (6.6-8.7)
[2021-04-16 16:33] LABS: Potassium 2.8 mmol/L (3.5-5.1)
[2021-04-16 17:27] LABS: Prealbumin 20.6 mg/dL (20-40)
[2021-04-18 12:48] LABS: Erythrocyte Sedimentation Rate 25 mm/hr (0-10)
[2021-04-19 13:11] LABS: Alanine Aminotransferase 26 U/L (0-41); Albumin Level 3.8 g/dL (3.5-5.2); Alkaline Phosphatase 101 IU/L (40-130); Anion Gap 19.4 (5-19); Aspartate Amino Transferase 16 U/L (0-40); Blood Urea Nitrogen 12 mg/dL (6-20); Calcium 8.9 mg/dL (8.5-10.5); Carbon Dioxide 23 mmol/L (22-29); Chloride 99 mmol/L (98-107); Globulin 2.8 g/dL (1.3-4.6); Glomerular Filtration Rate 127.6 mL/min (90-130); Glucose 132 mg/dL (65-115); Osmolality Calculated 288 mOsm/kg (285-295); Potassium 3.4 mmol/L (3.5-5.1); Sodium 138 mmol/L (136-145); Total Bilirubin 0.2 mg/dL (0.15-1.2); Total Protein 6.6 g/dL (6.6-8.7)
== END 2021-04-19 12:04 | disposition home or self-care (01) ==
PROVIDERS: PCP Internal Medicine; Visit Provider Internal Medicine
DX: L89.324 Pressure ulcer of left buttock, stage 4 (principal)
CPT/HCPCS: 80053; 84134; 85025; 85651; 86140

== ENCOUNTER 2021-05-22 15:43 | Outpatient (CLI) | payer MEDICARE, MEDICAID, SELFPAY ==
[2021-05-22 15:56] LABS: Basophils # 0.1 10^3/uL (0.0-0.1); Basophils % 0.5 %; Eosinophils # 0.3 10^3/uL (0.0-0.8); Eosinophils % 2.4 %; Hematocrit 45.3 % (42.0-52.0); Hemoglobin 15.9 g/dL (11.7-16.6); Lymphocytes # 2.3 10^3/uL (0.8-4.8); Lymphocytes % 15.8 %; Mean Corpuscular HGB Conc 35.1 g/dL (30.0-36.0); Mean Corpuscular Hemoglobin 32.9 pg (28.0-34.0); Mean Corpuscular Volume 93.6 fl (80-94); Mean Platelet Volume 10.4 fL (7.4-10.4); Monocytes % 6.9 %; Neutrophils # 10.66 10^3/uL (1.8-7.7); Nucleated Red Blood Cells % 0 %; Platelet Count 306 10^3/cmm (130-400); Red Blood Count 4.84 10^6/uL (4.1-5.3); Red Cell Distribution Width 13.6 % (12.1-15.1); White Blood Count 14.4 10^3/uL (4.0-10.0)
[2021-05-22 16:27] LABS: Alanine Aminotransferase 28 U/L (0-41); Albumin Level 4.2 g/dL (3.5-5.2); Alkaline Phosphatase 117 IU/L (40-130); Anion Gap 18.4 (5-19); Aspartate Amino Transferase 19 U/L (0-40); Blood Urea Nitrogen 9 mg/dL (6-20); C Reactive Protein 23.6 mg/L (0.0-4.9); Calcium 8.7 mg/dL (8.5-10.5); Carbon Dioxide 25 mmol/L (22-29); Chloride 97 mmol/L (98-107); Globulin 3.4 g/dL (1.3-4.6); Glomerular Filtration Rate 127.6 mL/min (90-130); Glucose 185 mg/dL (65-115); Osmolality Calculated 287 mOsm/kg (285-295); Potassium 3.4 mmol/L (3.5-5.1); Sodium 137 mmol/L (136-145); Total Bilirubin 0.2 mg/dL (0.15-1.2); Total Protein 7.6 g/dL (6.6-8.7)
[2021-05-22 16:29] LABS: Prealbumin 23.1 mg/dL (20-40)
[2021-05-24 16:50] LABS: Erythrocyte Sedimentation Rate 31 mm/hr (0-10)
== END 2021-05-22 15:44 | disposition home or self-care (01) ==
LOC: LAB 15:45
PROVIDERS: PCP Internal Medicine; Visit Provider Nurse Practitioner
DX: L89.324 Pressure ulcer of left buttock, stage 4 (principal)
CPT/HCPCS: 80053; 84134; 85025; 85651; 86140

== ENCOUNTER 2021-05-27 12:48 | Outpatient (CLI) | payer MEDICARE, MEDICAID, SELFPAY | END 2021-05-27 12:49 | disposition home or self-care (01) | LOC: LAB 12:50 | PROVIDERS: PCP Internal Medicine; Visit Provider Nurse Practitioner | DX: L89.329 Pressure ulcer of left buttock, unspecified stage (principal) | CPT/HCPCS: 87070 ==

== ENCOUNTER 2021-06-10 14:30 | Outpatient (CLI) | payer MEDICARE, MEDICAID, SELFPAY ==
[2021-06-10 15:20] LABS: Basophils # 0.1 10^3/uL (0.0-0.1); Basophils % 0.5 %; Eosinophils # 0.2 10^3/uL (0.0-0.8); Eosinophils % 1.6 %; Hematocrit 46.3 % (42.0-52.0); Hemoglobin 15.7 g/dL (11.7-16.6); Lymphocytes # 1.9 10^3/uL (0.8-4.8); Lymphocytes % 13.5 %; Mean Corpuscular HGB Conc 33.9 g/dL (30.0-36.0); Mean Corpuscular Hemoglobin 31.9 pg (28.0-34.0); Mean Corpuscular Volume 94.1 fl (80-94); Mean Platelet Volume 10.5 fL (7.4-10.4); Monocytes # 0.8 10^3/uL (0.2-0.9); Monocytes % 5.8 %; Neutrophils # 10.88 10^3/uL (1.8-7.7); Neutrophils % 78.4 %; Nucleated Red Blood Cells % 0 %; Platelet Count 285 10^3/cmm (130-400); Red Blood Count 4.92 10^6/uL (4.1-5.3); Red Cell Distribution Width 13.6 % (12.1-15.1); White Blood Count 13.9 10^3/uL (4.0-10.0)
[2021-06-10 15:39] LABS: Erythrocyte Sedimentation Rate 17 mm/hr (0-10)
[2021-06-10 15:41] LABS: C Reactive Protein 15.9 mg/L (0.0-4.9)
== END 2021-06-10 14:31 | disposition home or self-care (01) ==
LOC: LAB 14:34
PROVIDERS: PCP Internal Medicine; Visit Provider Nurse Practitioner
DX: L89.329 Pressure ulcer of left buttock, unspecified stage (principal)
CPT/HCPCS: 85025; 85651; 86140

== ENCOUNTER 2021-09-09 13:26 | Outpatient (CLI) | payer MEDICARE, MEDICAID, SELFPAY ==
[2021-09-09 14:08] LABS: Basophils % 0.5 %; Eosinophils # 0.2 10^3/uL (0.0-0.8); Eosinophils % 2.7 %; Hematocrit 45.2 % (42.0-52.0); Hemoglobin 15.7 g/dL (11.7-16.6); Lymphocytes # 2.1 10^3/uL (0.8-4.8); Lymphocytes % 23.6 %; Mean Corpuscular HGB Conc 34.7 g/dL (30.0-36.0); Mean Corpuscular Hemoglobin 33.1 pg (28.0-34.0); Mean Corpuscular Volume 95.2 fl (80-94); Mean Platelet Volume 10.8 fL (7.4-10.4); Monocytes # 0.5 10^3/uL (0.2-0.9); Monocytes % 5.8 %; Neutrophils # 5.94 10^3/uL (1.8-7.7); Neutrophils % 66.9 %; Nucleated Red Blood Cells % 0 %; Platelet Count 245 10^3/cmm (130-400); Red Blood Count 4.75 10^6/uL (4.1-5.3); Red Cell Distribution Width 12.9 % (12.1-15.1); White Blood Count 8.9 10^3/uL (4.0-10.0)
[2021-09-09 14:24] LABS: Erythrocyte Sedimentation Rate 26 mm/hr (0-10)
[2021-09-09 14:31] LABS: Alanine Aminotransferase 44 U/L (0-41); Albumin Level 4.4 g/dL (3.5-5.2); Alkaline Phosphatase 112 IU/L (40-130); Aspartate Amino Transferase 33 U/L (0-40); Blood Urea Nitrogen 11 mg/dL (6-20); C Reactive Protein 14.5 mg/L (0.0-4.9); Calcium 9.9 mg/dL (8.5-10.5); Carbon Dioxide 25 mmol/L (22-29); Chloride 96 mmol/L (98-107); Globulin 3.2 g/dL (1.3-4.6); Glomerular Filtration Rate 152.4 mL/min (90-130); Glucose 126 mg/dL (65-115); Osmolality Calculated 283 mOsm/kg (285-295); Prealbumin 22.8 mg/dL (20-40); Sodium 136 mmol/L (136-145); Total Bilirubin 0.2 mg/dL (0.15-1.2); Total Protein 7.6 g/dL (6.6-8.7)
[2021-09-09 14:37] LABS: Anion Gap 19.1 (5-19); Potassium 4.1 mmol/L (3.5-5.1)
== END 2021-09-09 13:27 | disposition home or self-care (01) ==
LOC: LAB 13:26
PROVIDERS: PCP Internal Medicine; Visit Provider Internal Medicine
DX: L89.324 Pressure ulcer of left buttock, stage 4 (principal)
CPT/HCPCS: 80053; 84134; 85025; 85651; 86140

== ENCOUNTER 2021-11-08 11:03 | Outpatient (CLI) | payer MEDICARE, MEDICAID, SELFPAY ==
[2021-11-08 11:38] LABS: Basophils % 0.4 %; Eosinophils # 0.1 10^3/uL (0.0-0.8); Eosinophils % 1.1 %; Hemoglobin 14.4 g/dL (11.7-16.6); Lymphocytes # 1.4 10^3/uL (0.8-4.8); Lymphocytes % 13.8 %; Mean Corpuscular HGB Conc 34.3 g/dL (30.0-36.0); Mean Corpuscular Hemoglobin 32.2 pg (28.0-34.0); Monocytes # 0.8 10^3/uL (0.2-0.9); Monocytes % 7.7 %; Neutrophils # 8.03 10^3/uL (1.8-7.7); Neutrophils % 76.7 %; Nucleated Red Blood Cells % 0 %; Platelet Count 292 10^3/cmm (130-400); Red Blood Count 4.47 10^6/uL (4.1-5.3); Red Cell Distribution Width 13.9 % (12.1-15.1); White Blood Count 10.5 10^3/uL (4.0-10.0)
[2021-11-08 12:15] LABS: Alanine Aminotransferase 14 U/L (0-41); Albumin Level 4.4 g/dL (3.5-5.2); Alkaline Phosphatase 105 IU/L (40-130); Anion Gap 17.3 (5-19); Aspartate Amino Transferase 12 U/L (0-40); Blood Urea Nitrogen 12 mg/dL (6-20); Calcium 8.9 mg/dL (8.5-10.5); Carbon Dioxide 27 mmol/L (22-29); Chloride 94 mmol/L (98-107); Globulin 2.8 g/dL (1.3-4.6); Glomerular Filtration Rate 127.6 mL/min (90-130); Glucose 120 mg/dL (65-115); Osmolality Calculated 281 mOsm/kg (285-295); Potassium 3.3 mmol/L (3.5-5.1); Prealbumin 19.4 mg/dL (20-40); Sodium 135 mmol/L (136-145); Total Bilirubin 0.3 mg/dL (0.15-1.2); Total Protein 7.2 g/dL (6.6-8.7)
== END 2021-11-08 11:04 | disposition home or self-care (01) ==
LOC: LAB 11:07
PROVIDERS: PCP Internal Medicine; Visit Provider Internal Medicine
DX: L89.324 Pressure ulcer of left buttock, stage 4 (principal)
CPT/HCPCS: 80053; 84134; 85025

== ENCOUNTER 2022-02-17 06:00 | Outpatient (CLI) | payer MEDICARE, MEDICAID, SELFPAY ==
[2022-02-17 13:27] LABS: Alanine Aminotransferase 22 U/L (0-41); Albumin Level 3.9 g/dL (3.5-5.2); Alkaline Phosphatase 118 U/L (40-130); Anion Gap 15.8 (5-19); Aspartate Amino Transferase 14 U/L (0-40); Blood Urea Nitrogen 10 mg/dL (6-20); Calcium 8.6 mg/dL (8.5-10.5); Carbon Dioxide 25 mmol/L (22-29); Chloride 93 mmol/L (98-107); Glomerular Filtration Rate 108.8 mL/min (90-130); Glucose 337 mg/dL (65-115); Osmolality Calculated 282 mOsm/kg (285-295); Potassium 3.8 mmol/L (3.5-5.1); Prealbumin 15.1 mg/dL (20-40); Sodium 130 mmol/L (136-145); Total Bilirubin 0.2 mg/dL (0.15-1.2); Total Protein 6.9 g/dL (6.6-8.7)
== END 2022-02-17 23:00 | disposition home or self-care (01) ==
LOC: LAB 04-21 12:31
PROVIDERS: PCP Internal Medicine; Visit Provider Family Medicine
DX: E11.9 Type 2 diabetes mellitus without complications (principal)
CPT/HCPCS: 80053; 84134

== ENCOUNTER 2022-02-26 10:53 | Outpatient (CLI) | payer MEDICARE, MEDICAID, SELFPAY ==
[2022-02-26 11:18] LABS: Basophils % 0.4 %; Eosinophils # 0.2 10^3/uL (0.0-0.8); Eosinophils % 1.7 %; Hematocrit 46.9 % (42.0-52.0); Mean Corpuscular HGB Conc 34.1 g/dL (30.0-36.0); Mean Corpuscular Hemoglobin 31.4 pg (28.0-34.0); Mean Corpuscular Volume 92.1 fl (80-94); Mean Platelet Volume 9.8 fL (7.4-10.4); Monocytes # 0.8 10^3/uL (0.2-0.9); Monocytes % 7.3 %; Neutrophils # 8.16 10^3/uL (1.8-7.7); Neutrophils % 72.2 %; Nucleated Red Blood Cells % 0 %; Platelet Count 246 10^3/cmm (130-400); Red Blood Count 5.09 10^6/uL (4.1-5.3); Red Cell Distribution Width 13.2 % (12.1-15.1); White Blood Count 11.3 10^3/uL (4.0-10.0)
[2022-02-26 11:47] LABS: Alanine Aminotransferase 23 U/L (0-41); Albumin Level 4.6 g/dL (3.5-5.2); Alkaline Phosphatase 121 U/L (40-130); Anion Gap 16.4 (5-19); Aspartate Amino Transferase 17 U/L (0-40); Blood Urea Nitrogen 12 mg/dL (6-20); Calcium 9.6 mg/dL (8.5-10.5); Carbon Dioxide 27 mmol/L (22-29); Chloride 94 mmol/L (98-107); Globulin 3.2 g/dL (1.3-4.6); Glomerular Filtration Rate 126.9 mL/min (90-130); Glucose 197 mg/dL (65-115); Osmolality Calculated 283 mOsm/kg (285-295); Potassium 3.4 mmol/L (3.5-5.1); Sodium 134 mmol/L (136-145); Thyroid Stimulating Hormone 3.49 uIU/mL (0.27-4.20); Total Bilirubin 0.2 mg/dL (0.15-1.2); Total Protein 7.8 g/dL (6.6-8.7)
[2022-02-26 11:55] LABS: Estmated Average Glucose 189; Hemoglobin A1C 8.2 % (4.0-6.0)
== END 2022-02-26 10:54 | disposition home or self-care (01) ==
LOC: LAB 10:57
PROVIDERS: PCP Internal Medicine; Visit Provider Internal Medicine
DX: E11.9 Type 2 diabetes mellitus without complications (principal)
CPT/HCPCS: 36415; 80053; 83036; 84443; 85025

== ENCOUNTER 2022-05-21 06:05 | Outpatient (CLI) | payer MEDICARE, MEDICAID, SELFPAY ==
--- NOTE | 2022-05-21 13:33 | NM_ITS ---
WS: [id number] NUCLEAR MEDICINE WHITE BLOOD CELL STUDY. INDICATION: Ulcer LEFT buttock Osteomyelitis. TECHNIQUE: 10.5 mCi technetium 99m Ceretec tagged white blood cell scan. Whole-body and pelvic imagin g was obtained. FINDINGS: Comparison prior examinations CT April 05, 2020, bone scan October 24, [address] August 31, 2019. Normal hepatic and splenic activity. Peña catheter activity. Soft tissue defect with evidence of a L EFT decubitus ulcer in the area of concern. Small amount of increased activity at the ulcer site and fistula tract. LEFT ischium demonstrates overall decreased marrow activity likely due to chronic osteomyelitis in th is location. This is asymmetric compared to the RIGHT. No other focal abnormalities. NM/NM CERETEC WBC scan* [id number] IMPRESSION: 1. Slightly aneurysmal blood flow activity along the decubitus ulcer LEFT butt ock with slight uptake along the fistulous tract. 2. Overall decreased white blood cell activity in the underlying narrow about the LEFT hip specifically decreased activity in the initiation and involving th e dorsal acetabulum consistent with chronic osteomyelitis with decreased vascul ar permeability. This corresponds to the prior CT findings from 2019. 3. No areas of increased white blood cell bone marrow activity.
== END 2022-05-21 06:06 | disposition home or self-care (01) ==
LOC: RAD 06:09
PROVIDERS: PCP Internal Medicine; Visit Provider Family Medicine
DX: L89.324 Pressure ulcer of left buttock, stage 4 (principal); G82.20 Paraplegia, unspecified; Z72.0 Tobacco use
CPT/HCPCS: 78802; A9569

== ENCOUNTER → 2022-07-28 09:22 | Outpatient (BNVA) | payer MEDICARE, MEDICAID, SELFPAY | PROVIDERS: PCP Internal Medicine; Visit Provider Thoracic Surgery (Cardiothoracic Vascular Surgery) | DX: I96 Gangrene, not elsewhere classified (principal); L89.322 Pressure ulcer of left buttock, stage 2 | CPT/HCPCS: 11042; 99213 ==

== ENCOUNTER → 2022-08-11 08:45 | Outpatient (BNVA) | payer MEDICARE, MEDICAID, SELFPAY | PROVIDERS: PCP Internal Medicine; Visit Provider Thoracic Surgery (Cardiothoracic Vascular Surgery) | DX: I96 Gangrene, not elsewhere classified (principal); L89.322 Pressure ulcer of left buttock, stage 2 | CPT/HCPCS: 11042 ==

== ENCOUNTER 2022-08-16 05:53 | Inpatient (IN) | payer MEDICARE, MEDICAID, SELFPAY ==
[2022-08-16] VITALS (46 sets, daily range): BP systolic 80–135; BP diastolic 53–85; PULSE 78–147; RESP 15–28; TEMP 35.6–38.2; O2SAT 88–100; BMI 27.3
--- NOTE | 2022-08-16 06:18 | XRR_ITS ---
PROCEDURE INFORMATION: Exam: XR Chest Exam date and time: 08/16/2022 6:36 AM Age: 36 years old Clinical indication: Dyspnea; Additional info: Sepsis, unclear source TECHNIQUE: Imaging protocol: Radiologic exam of the chest. Views: 1 view. COMPARISON: CR XR chest 1V portable [id number] 11/11/2019 2:25 PM FINDINGS: Lungs: There are mildly decreased lung volumes with minimal accentuation of the pulmonary vascularity. There are no confluent interstitial or airspace opacities. Pleural spaces: There are no pleural effusions or pneumothorax. Heart/Mediastinum: The heart size is normal. The mediastinal contour is normal. The trachea is in the midline. Bones/joints: No acute abnormalities. Postsurgical changes of the lower thoracic and visualized lumbar spine are once again seen with metallic hardware. Surgical clips are seen in the right upper quadrant of the abdomen, likely related to prior cholecystectomy. XR/XR chest 1V portable [id number] IMPRESSION: Mildly decreased lung volumes with minimal accentuation of the pulmonary vascularity. No confluent infiltrates in the lungs.
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
--- NOTE | 2022-08-16 06:33 | ECG_ITS ---
[facility] Test Date: 2022-08-16 Pat Name: Nikko Aparicio Department: Room: Gender: Male Outside Production Inspector: : 1985 Requested By: Gigi Jones Order Number: [id number] Renteria MD: Orlando Henry M.D. Measurements Intervals [place] Rate: 121 P: 30 [place]: 155 QRS: 89 QRSD: 100 T: 26 QT: 304 QTc: 432 Interpretive Statements SINUS TACHYCARDIA Compared to ECG 04/05/2020 16:10:52 No significant changes Electronically Signed On 08-16-2022 12:18:41 BOLT MAKER by Orlando Henry M.D. [id number]
[2022-08-16 06:42] LABS: Basophils % 0.2 %; Eosinophils % 0.1 %; Hematocrit 38.5 % (42.0-52.0); Lymphocytes # 0.2 10^3/uL (0.8-4.8); Lymphocytes % 1.1 %; Mean Corpuscular HGB Conc 33.8 g/dL (30.0-36.0); Mean Corpuscular Hemoglobin 31.3 pg (28.0-34.0); Mean Corpuscular Volume 92.8 fl (80-94); Mean Platelet Volume 9.4 fL (7.4-10.4); Monocytes % 5.3 %; Neutrophils # 17.56 10^3/uL (1.8-7.7); Neutrophils % 91.7 %; Nucleated Red Blood Cells % 0 %; Platelet Count 165 10^3/cmm (130-400); Red Blood Count 4.15 10^6/uL (4.1-5.3); Red Cell Distribution Width 13.9 % (12.1-15.1); White Blood Count 19.2 10^3/uL (4.0-10.0)
[2022-08-16 07:12] LABS: Albumin Level 3.1 g/dL (3.5-5.2); Alkaline Phosphatase 111 U/L (40-130); Blood Urea Nitrogen 49 mg/dL (6-20); Calcium 8.2 mg/dL (8.5-10.5); Carbon Dioxide 17 mmol/L (22-29); Chloride 90 mmol/L (98-107); Creatine Phosphokinase 196 U/L (39-308); Globulin 4.1 g/dL (1.3-4.6); Glomerular Filtration Rate 17.5 mL/min (90-130); Glucose 133 mg/dL (65-115); Osmolality Calculated 277 mOsm/kg (285-295); Sodium 126 mmol/L (136-145); Total Bilirubin 0.2 mg/dL (0.15-1.2); Total Protein 7.2 g/dL (6.6-8.7)
[2022-08-16 07:13] LABS: Lactic Sepsis W/Reflex 2.3 mmol/L (0.5-2.2)
[2022-08-16] MEDS: piperacillin-tazobactam 4.5 GM in sodium chloride 0.9% (plus) 50 ML IV (07:25)
[2022-08-16] MEDS: sodium chloride 0.9% 2,449.41 ML 2449.41 ML IV (07:25)
[2022-08-16] MEDS: ondansetron 2 mg/ML SDV 2 mL 4 MG IVP (07:26)
[2022-08-16] MEDS: acetaminophen 500 mg Tablet 1000 MG PO (07:26)
[2022-08-16 07:35] LABS: Anion Gap 22.7 (5-19)
[2022-08-16 07:36] LABS: Alanine Aminotransferase 23 U/L (0-41); Aspartate Amino Transferase 29 U/L (0-40); Potassium 3.7 mmol/L (3.5-5.1)
[2022-08-16 07:50] LABS: Reflex Lactate Order REFLEX LACTIC ORDERD
[2022-08-16 08:00] LABS: Influenza A by IFA negative (Negative); Influenza B by IFA negative (Negative); SARS Covid-2 Antigen negative (Negative)
[2022-08-16] MEDS: LORazepam 2 mg/mL INJ 1 mL 1 MG IVP ×2 (08:00→17:41)
--- NOTE | 2022-08-16 09:05 | PC.NURSE ---
PT HAD 1300ML TEA COLORED URINE OUT OF MORRISON CATHETER.
[2022-08-16] MEDS: morphine 4 mg/mL SDV 1 mL IVP ×3 (09:08→18:12)
--- NOTE | 2022-08-16 09:14 | ED_ITS ---
HPI - Headache General: Chief Complaint: Fever Stated Complaint: FEVER Time Seen by Provider: 08/16/22 06:07 Mode of arrival: EMS Limitations: altered mental status (delirium) PFSH ED PFSH: Medical History Basal cell carcinoma HTN (hypertension) Paraplegia 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 UTI (urinary tract infection) Wound abscess Surgical History Hx of cholecystectomy Previous back surgery S/P ankle ligament repair Family History Mother , at age 60 Chronic kidney disease (CKD) Father , at age 71 Natural with unknown cause Other Anemia CAD (coronary artery disease) Diabetes Hypertension Social History Smoking and tobacco status: current every day smoker Alcohol intake: current Alcohol intake frequency: holidays/special occasions only Marital status: Current occupational status: disabled Course Vital Signs: Vital signs: Vital Signs Temperature 100.8 F H 08/16/22 06:04 Pulse Rate 120 H 08/16/22 08:58 Respiratory Rate 20 H 08/16/22 09:08 Blood Pressure 105/57 08/16/22 08:58 Pulse Oximetry 96 08/16/22 10:37 Oxygen Delivery Me thod 08/16/22 10:37 MDM - Headache Lab Data 08/16/22 06:20 08/16/22 06:20 Radiology Impressions Chest X-Ray 08/16/22 06:18 IMPRESSION: Mildly decreased lung volumes with minimal accentuation of the pulmonary vascularity. No confluent infiltrates in the lungs. Laboratory Results WBC 19.2 10^3/uL (4.0-10.0) H 08/16/22 06:20 RBC 4.15 10^6/uL (4.1-5.3) 08/16/22 06:20 Hgb 13.0 g/dL (11.7-16.6) 08/16/22 06:20 Hct 38.5 % (42.0-52.0) L 08/16/22 06:20 MCV 92.8 fl (80-94) 08/16/22 06:20 MCH 31.3 pg (28.0-34.0) 08/16/22 06:20 MCHC 33.8 g/dL (30.0-36.0) 08/16/22 06:20 RDW 13.9 % (12.1-15.1) 08/16/22 06:20 Plt Count 165 10^3/cmm (130-400) 08/16/22 06:20 MPV 9.4 fL (7.4-10.4) 08/16/22 06:20 Neut % (Auto) 91.7 % 08/16/22 06:20 Lymph % (Auto) 1.1 % 08/16/22 06:20 Desha % (Auto) 5.3 % 08/16/22 06:20 Eos % (Auto) 0.1 % 08/16/22 06:20 Baso % (Auto) 0.2 % 08/16/22 06:20 Neut # (Auto) 17.56 10^3/uL (1.8-7.7) H 08/16/22 06:20 Lymph # (Auto) 0.2 10^3/uL (0.8-4.8) L 08/16/22 06:20 Desha # (Auto) 1.0 10^3/uL (0.2-0.9) H 08/16/22 06:20 Eos # (Auto) 0.0 10^3/uL (0.0-0.8) 08/16/22 06:20 Baso # (Auto) 0.0 10^3/uL (0.0-0.1) 08/16/22 06:20 Nucleated RBC % (auto) 0 % 08/16/22 06:20 Nucleated RBCs # 0.0 /100WBC 08/16/22 06:20 Sodium 126 mmol/L (136-145) L 08/16/22 06:20 Potassium 3.7 mmol/L (3.5-5.1) 08/16/22 06:20 Chloride 90 mmol/L (98-107) L 08/16/22 06:20 Carbon Dioxide 17 mmol/L (22-29) L 08/16/22 06:20 Anion Gap 22.7 (5-19) H 08/16/22 06:20 BUN 49 mg/dL (6-20) H 08/16/22 06:20 Creatinine 3.9 mg/dL (0.7-1.2) H 08/16/22 06:20 GFR Calculation 17.5 mL/min (90-130) L 08/16/22 06:20 Glucose 133 mg/dL (65-115) H 08/16/22 06:20 Calculated Osmolality 277 mOsm/kg (285-295) L 08/16/22 06:20 Lactic Acid 2.3 mmol/L (0.5-2.2) H 08/16/22 06:20 Calcium 8.2 mg/dL (8.5-10.5) L 08/16/22 06:20 Total Bilirubin 0.2 mg/dL (0.15-1.2) 08/16/22 06:20 AST 29 U/L (0-40) 08/16/22 06:20 ALT 23 U/L (0-41) 08/16/22 06:20 Alkaline Phosphatase 111 U/L (40-130) 08/16/22 06:20 Creatine Kinase 196 U/L (39-308) 08/16/22 06:20 Total Protein 7.2 g/dL (6.6-8.7) 08/16/22 06:20 Albumin 3.1 g/dL (3.5-5.2) L 08/16/22 06:20 Globulin 4.1 g/dL (1.3-4.6) 08/16/22 06:20 Influenza Type A Ag negative (Negative) 08/16/22 07:36 Influenza Type B Ag negative (Negative) 08/16/22 07:36 SARS-CoV-2 Ag (Rapid) negative (Negative) 08/16/22 07:36 Discharge Plan Discharge Patient Disposition: Admitted As Inpatient Admit Provider: Mao Smith Clinical Impression: Sepsis, Chronic indwelling Peña catheter, Neurogenic bladder, Paraplegia, Acute renal failure (ARF), Acute urinary obstruction Condition: Stable Discharge Diet: Advance as tolerated Coding Level of Care Code ED Printed Circuit Boards Plasma Etcher for Amarjit Cancino
[2022-08-16] MEDS: enoxaparin 40 mg/0.4 mL Syringe SUBCUT (09:37)
[2022-08-16 09:43] LABS: Lactic Acid level (Lactate) 2.9 mmol/L (0.5-2.2)
[2022-08-16 09:48] LABS: Troponin(5th) Baseline 25 ng/L (0-15)
--- NOTE | 2022-08-16 09:56 | PC.NURSE ---
md gave verbal order to dc perdue catheter and insert new catheter. md gave verbal order to instil 20ml of sterile saline into catheter balloon.
[2022-08-16 10:31] LABS: Amphetamines Screen Urine Negative (Negative); Barbiturates Screen Urine Negative (Negative); Benzodiazepines Screen Urine Positive (Negative); Cocaine Screen Urine Negative (Negative); Opiate Screen Urine Positive (Negative); PCP Screen Urine Negative (Negative); THC Screen Urine Positive (Negative)
[2022-08-16 10:35] LABS: Add Urine Microscopic? YES; Bilirubin Urine Neg (Negative); Blood Urine 3+ (Negative); Glucose Urine UA Norm (Normal); Ketones Urine Negative (Negative); Leukocyte Esterase Urine 2+ (Negative); Nitrate Urine Negative (Negative); Protein Urine 2+ (Negative); Urine Appearance Hazy (CLEAR); Urine Color Yellow (Yellow); Urobilinogen Urine Norm (Negative); pH Urine 6 (5-7)
[2022-08-16 10:43] LABS: Add Urine Culture? Yes; Bacteria Urine 1+ /hpf; Mucus Urine TRACE /hpf; RBC Urine 15-25 /hpf (0-2); WBC Urine 40-55 /hpf (0-5)
[2022-08-16 11:29] LABS: Troponin 5 2HR 22.11 ng/L (0-15)
[2022-08-16 11:34] LABS: Troponin 5 2HR Delta -2.89 ABS# (0-10)
[2022-08-16] MEDS: sodium chloride 0.9% 1,000 ML 150 ML IV ×3 (12:58→23:37)
[2022-08-16] MEDS: piperacillin-tazobactam 3.375 GM in sodium chloride 0.9% (plus) 50 ML IV ×2 (16:03→23:43)
--- NOTE | 2022-08-16 16:24 | P.HP_ITS ---
Providers/Chief Complaint Admitting Physician: Mao Smith DO Primary Care Provider: Broderick Pope MD Chief Complaint: FEVER History of Present Illness Nikko Aparicio is a 36 year old male with a past medical history of paraplegia, indwelling catheter, hypertension, stage IV ischial wound, presented to the ER with complaints of not feeling well for the last 4 days. States that he started having a fever around Thursday. States that it has slowly worsened since this time. He reports body aches, confusion, and some trouble with diarrhea during this time. He is quite uncomfortable appearing in the ER today and continues to complain of some back pain. EMS had reported that patient has an indwelling Peña catheter as a result of his neurogenic bladder, and there had been no urine output for the last couple of days. He apparently had moved around either in the ambulance or in his home prior to transfer and approximately a liter of urine drained into the bag. He denies any other symptoms at this time. In the ER today, he is noted to be diaphoretic. He has a temperature of 100.8 initially. He is quite tachycardic. His blood pressures were stable initially, but have been on lessening during his evaluation. His most recent blood pressure was 105/57. Labs were significant for leukocytosis of 19.2 with neutrophilia. He did have hyponatremia of 126. Was noted to have a metabolic acidosis with an anion gap of 22.7. His BUN and creatinine were elevated at 49 and 3.9 respectively. He had a lactic acid of 2.9. Troponins were drawn and were negative. He did have a UA while in the ER which showed 2+ protein, 3+ blood, 2+ leuk esterase, 15-25 red blood cells, 40-55 whites, and 1+ bacteria. His UA was negative for nitrates. UDS was performed and was positive for opiates, benzos, marijuana. COVID and flu were all negative. Chest x-ray did show mildly decreased lung volumes, with no consolidation or significant infiltrates. He was started on IV fluids and Zosyn in the ER. In addition, he was quite uncomfortable and was provided with some IV morphine. He was admitted and transferred to the ICU for close monitoring. Review of Systems General: Reports: 10 or more systems reviewed and unremarkable except in HPI and below Const: Reports: fever(s), chills and body aches Eyes: Denies: change in vision ENMT: Denies: throat pain, enlarged tonsils or odynophagia Card: Denies: chest pain or palpitations Resp: Denies: dyspnea or productive cough GI: Reports: abdominal pain and nausea; Denies: vomiting : Reports: flank pain and difficulty urinating; Denies: dysuria Musc: Denies: neck pain Skin/Breast: Denies: rash Neuro: Denies: headache(s) Psych: Denies: anxiety Aayush/Lymph: Denies: easy bruising Medications/Allergies Home Medications Medication Instructions Recorded Confirmed Last Taken Type aspirin-caffeine 845 mg-65 mg oral 1 ea PO Q6H PRN Pain 03/04/20 08/16/22 04/05/20 History powder packet (BC Pain Relief) gabapentin 300 mg capsule 900 mg PO BID #180 caps 08/01/20 08/16/22 Unknown Rx zolpidem 5 mg tablet (Ambien) 5 mg PO BEDTIME #30 tabs 06/17/21 08/16/22 Unknown Rx levetiracetam 500 mg See Rx Instructions .Route 09/03/21 08/16/22 Unknown Rx tablet,extended release 24 hr .COMPLEX #60 tabs trazodone 150 mg tablet 150 mg PO .qhs #90 tabs 09/23/21 08/16/22 Unknown Rx pantoprazole 40 mg tablet,delayed 40 mg PO DAILY #90 tabs 12/19/21 08/16/22 Unknown Rx release (Protonix) alprazolam 0.5 mg tablet 0.5 mg PO DAILY #30 tabs 02/26/22 08/16/22 Unknown Rx glimepiride 4 mg tablet (Amaryl) 4 mg PO BID #180 tabs 02/26/22 08/16/22 Unknown Rx bisacodyl 10 mg rectal suppository 10 mg HI DAILY PRN constipation 03/31/22 08/16/22 Unknown Rx #12 ea duloxetine 30 mg capsule,delayed See Rx Instructions .Route 03/31/22 08/16/22 Unknown Rx release .COMPLEX #90 caps ondansetron HCl 4 mg tablet See Rx Instructions .Route 03/31/22 08/16/22 Unknown Rx .COMPLEX #30 tabs spironolactone 25 1 tab PO DAILY #90 tabs 03/31/22 08/16/22 Unknown Rx mg-hydrochlorothiazide 25 mg tablet (Aldactazide) baclofen 20 mg tablet 60 mg PO BID #180 tabs 04/03/22 08/16/22 Unknown Rx duloxetine 60 mg capsule,delayed 60 mg PO DAILY #90 caps 04/03/22 08/16/22 Unknown Rx release varenicline 1 mg tablet 1 mg PO BID #180 tabs 04/21/22 08/16/22 Unknown Rx hydrocodone 5 mg-acetaminophen 325 1 tab PO BID PRN pain 1 month #14 05/01/22 08/16/22 Unknown Rx mg tablet tabs bisacodyl 10 mg rectal suppository 10 mg HI DAILY PRN Constipation 08/16/22 08/16/22 Unknown History Allergies Allergy/AdvReac Type Severity Reaction Status Date / Time ceftriaxone [From Rocephin] Allergy ALGY-Hives Verified 04/03/22 14:39 levofloxacin [From Levaquin] Allergy Unknown Verified 04/03/22 14:39 PFSH Acute PFSH: Medical History Basal cell carcinoma HTN (hypertension) Paraplegia 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 UTI (urinary tract infection) Wound abscess Surgical History Hx of cholecystectomy Previous back surgery S/P ankle ligament repair Family History Mother , at age 60 Chronic kidney disease (CKD) Father , at age 71 Natural with unknown cause Other Anemia CAD (coronary artery disease) Diabetes Hypertension Social History Smoking and tobacco status: current every day smoker Alcohol intake: current Alcohol intake frequency: holidays/special occasions only Marital status: Current occupational status: disabled Vitals/I&O/Wt Last Vital Signs Temp 97.8 F 08/16/22 16:00 Pulse 123 H 08/16/22 15:30 Resp 19 H 08/16/22 16:00 BP 101/77 08/16/22 14:30 Pulse Ox 100 08/16/22 16:00 O2 Del Method 08/16/22 16:00 08/16/22 08/16/22 08/16/22 06:59 14:59 22:59 Intake Total 2494.41 / 2494.41 Output Total 1100 / 1100 Balance 2494.41 / 2494.41 -1100 / 1394.41 Weight last 48 hrs Weight 180 lb Physical Exam Const: COMMON NORMALS: alert and well nourished EXAM LIMITATIONS: altered mental status GENERAL APPEARANCE: cooperative, in distress and diaphoretic ORIENTATION/CONSCIOUSNESS: Yes awake, Yes oriented to person and Yes oriented to place; not oriented to time HENMT: COMMON NORMALS: normocephalic, atraumatic, hearing grossly normal bilaterally and moist oral mucous membranes HEAD & SCALP: normocephalic and atraumatic Eye: COMMON NORMALS: Equal, round and reactive pupils present and EOMs intact bilaterally Lymph: LYMPHATIC: no lymphadenopathy noted Resp: COMMON NORMALS: normal respiratory effort and clear to auscultation bilaterally AUSCULTATION: clear to auscultation bilaterally, no crackles, no rales and no wheezes Cardio: COMMON NORMALS: regular rhythm RATE: tachycardic HEART SOUNDS: S1 normal heart sound present, S2 normal heart sound present, no click, no gallops and no murmurs GI: COMMON NORMALS: Soft to palpation and No hepatosplenomegaly present P ALPATION: Yes Tenderness to palpation present (GI) (Generalized tenderness) Back/Pelvis: GENERAL BACK: Yes warmth and Yes tenderness LUMBAR SPINE/LOWER BACK: Yes pain with ROM Extremity: NARRATIVE EXTREMITY EXAM: Paraplegic. Neuro: SENSORIUM/ORIENTATION: Yes alert, Yes oriented to person, Yes oriented to place and No oriented to time SPEECH: speech normal GAIT: Yes Unable to assess gait Psych: COMMON NORMALS: cooperative and speech normal SPEECH: Yes normal speech MOOD & AFFECT: Yes irritable Skin: NARRATIVE SKIN EXAM: Left ischial wound, stage IV. Urinary Catheter Management: Peña: Cath Placed During This Visit: yes Reason for Continuing Indwelling Catheter: Acute Urinary Retention or Obstruction Urinary Catheter Date of Insertion: 08/16/22 Urinary Catheter Time of Insertion: 09:56 Data 08/16/22 06:20 08/16/22 06:20 Micro: Microbiology 08/16/22 06:20 Blood Culture - Preliminary Blood SPECIMEN COLLECTED 08/16/22 06:32 Blood Culture - Preliminary Blood SPECIMEN COLLECTED A&P Assessment and plan (1) Sepsis: (2) Acute renal failure (ARF): (3) Acute urinary obstruction: (4) DM type 2 (diabetes mellitus, type 2): (5) Neurogenic bladder: (6) HTN (hypertension): (7) Paraplegia: (8) Positive urine drug screen: Plan Nikko Aparicio is a 36 year old male with a past medical history of paraplegia, indwelling catheter, hypertension, stage IV ischial wound, Admitted to ICU for Sepsis, ARF, AMS. ICU for close inpatient monitoring. Patient meets sepsis criteria as he is tachycardic, febrile and mildly hypertensive. He did have an elevated white count to 19.2, and a urinalysis that appears consistent with UTI. His presentation is consistent with sepsis/severe sepsis given his acute renal failure in the setting of urinary tract infection. Must consider there could be an element of withdrawal given his UDS. Can consider starting Precedex drip in the ER as patient is very uncomfortable and confused. He has currently disrupted his IV on 3 different sites, and these were replaced. Started on Zosyn in the ER. Will continue. Blood and urine cultures were obtained and pending. He did receive multiple fluid boluses in the ER and upon admission consistent with sepsis recommendations. Recheck labs in the a.m. including lactate. Morphine for pain management. RAAT, O2 protocol. Lovenox for DVT PPx. Protonix for GI PPx. Zofran for nausea. Will have ativan available for acute anxiety, and/or for withdrawal symptoms if needed. Code Status: Full IVF: NS @ 150 DVT PPx: Lovenox GI PPx: Protonix ABx: Zosyn Diet: NPO Discharge plan: Home when appropriate. Attestations Medical Necessity Statement*: Will need at least 2 midnights to treat for sepsis, complicated UTI, AMS. He will need close ICU monitoring due to risk of sudden clinical deterioration. Coding Level of Care Code Critical Care >/= 30 minutes Critical care time (in minutes): 47 The high probability of a clinically significant, sudden or life threatening deterioration, as referenced in this documentation, required my full and direct attention, intervention and personal management. The critical care time shown is in addition to time spent performing any reported separately billable procedures and includes the following: [x] Data and vital sign review and interpretation [x ] Patient assessment, examination and intervention [x] Medication orders and management [x] Patient/Family updates as able [x] Care Coordination and Documentation. Diagnoses Sepsis A41.9 Acute renal failure (ARF) N17.9 Acute urinary obstruction N13.9 DM type 2 (diabetes mellitus, type 2) E11.9 Neurogenic bladder N31.9 HTN (hypertension) I10 Paraplegia G82.20 Positive urine drug screen R82.5
[2022-08-16 16:51] LABS: Troponin 5 6HR 19.59 ng/L (0-15)
[2022-08-16] MEDS: dexmedetomidine 400 MCG in sodium chloride 0.9% (100 ml) 100 ML 6.37 MCG IV (16:57)
[2022-08-16 17:01] LABS: Troponin 5 6HR Delta -5.41 ng/L (0-12)
[2022-08-16] MEDS: baclofen 10 mg Tablet 30 MG PO (17:41)
[2022-08-16] MEDS: vancomycin 1,000 MG in sodium chloride 0.9% 250 ML 250 MG IV (18:48)
[2022-08-16] MEDS: LORazepam 2 mg/mL INJ 1 mL IVP (21:53)
[2022-08-16] MEDS: dexmedetomidine 400 MCG in sodium chloride 0.9% (100 ml) 100 ML 19.11 MCG IV (23:29)
[2022-08-17] VITALS (105 sets, daily range): BP systolic 79–197; BP diastolic 50–121; PULSE 79–161; RESP 14–29; TEMP 37.2–38.8; O2SAT 68–100; BMI 27.3
[2022-08-17] MEDS: morphine 4 mg/mL SDV 1 mL IVP ×2 (01:12→03:59)
[2022-08-17] MEDS: sodium chloride 0.9% 1,000 ML 150 ML IV (01:13)
[2022-08-17 02:28] LABS: Acinetobacter baumannii Not Detected (NOT DETECT); Bacteroides fragilis Not Detected (NOT DETECT); CTX-M Not Detected (NOT DETECT); Citrobacter Not Detected (NOT DETECT); Cronobacter sakazakii Not Detected (NOT DETECT); Enterobacter cloacae complex Not Detected (NOT DETECT); Enterobacter non cloacae Not Detected (NOT DETECT); Fusobacterium necrophorum Not Detected (NOT DETECT); Fusobacterium nucleatum Not Detected (NOT DETECT); Haemophilus influenzae Not Detected (NOT DETECT); IMP Resistance Gene Not Detected (NOT DETECT); KPC Resistance Gene Not Detected (NOT DETECT); Klebsiella pneumoniae group Not Detected (NOT DETECT); Morganella morganii Not Detected (NOT DETECT); NDM Resistance Gene Not Detected (NOT DETECT); Neisseria meningitidis Not Detected (NOT DETECT); OXA Resistance Gene Not Detected (NOT DETECT); Pan Candida Not Detected (NOT DETECT); Pan Gram-Positive Not Detected (NOT DETECT); Proteus mirabilis Not Detected (NOT DETECT); Pseudomonas aeruginosa Not Detected (NOT DETECT); Salmonella Not Detected (NOT DETECT); Serratia Not Detected (NOT DETECT); Serratia marcescens Not Detected (NOT DETECT); Stenotrophomonas maltophilia Not Detected (NOT DETECT); VIM Resistance Gene Not Detected (NOT DETECT)
[2022-08-17] MEDS: LORazepam 2 mg/mL INJ 1 mL 1 MG IVP ×2 (03:52→15:30)
[2022-08-17] MEDS: etomidate 2 mg/mL INJ SDV 10 mL 20 MG IVP ×2 (04:11→04:31)
--- NOTE | 2022-08-17 04:12 | XRR_ITS ---
PROCEDURE INFORMATION: Exam: XR Chest Exam date and time: 08/17/2022 4:18 AM Age: 36 years old Clinical indication: Device placement; Ett placement (vent status); Additional info: Tube placement TECHNIQUE: Imaging protocol: Radiologic exam of the chest. Views: 1 view. COMPARISON: CR (CHEST, ) 08/16/2022 6:36 AM FINDINGS: Tubes, catheters and devices: Interval placement of endotracheal tube in the midline with tip 4 cm from the marion. Lungs: Mildly decreased lung volumes with increased mild perihilar pulmonary vascular congestion and minimal right basilar atelectasis. No airspace opacities in the lungs. Pleural spaces: No pneumothorax. Heart/Mediastinum: Normal heart size. Normal mediastinum. Midline trachea. Bones/joints: Postsurgical changes of the lower thoracic and upper lumbar spine are seen with metallic hardware. Soft tissues: Multiple external densities are seen overlying the chest, limiting assessment. XR/XR chest 1V portable [id number] IMPRESSION: 1. Interval placement of endotracheal tube, as noted above. 2. Mildly decreased lung volumes with increased mild perihilar pulmonary vascular congestion and minimal right basilar atelectasis. No airspace opacities in the lungs.
[2022-08-17] MEDS: succinylcholine 20 mg/mL SDV 10mL 122.4705 MG IV (04:31)
[2022-08-17] MEDS: succinylcholine 20 mg/mL SDV 10mL 100 MG IVP (04:41)
[2022-08-17] MEDS: propofol 1,000 MG/100 ML INJ 4.9 MG IV (04:43)
--- NOTE | 2022-08-17 04:52 | PC.NURSE ---
Addendum entered by Vanessa Centeno RN 08/18/22 00:28: Etomidate 20mg was wasted. Original Note: R. Wrist IV went bad as Etomidate was being pushed. Pt did not receive the 20mg of Etomidate. 20mg wasted w/ KELSEY Hartman. Another vile was override pulled from [employer] per verbal order from Dr. Ross. See [facility] for administration.
[2022-08-17 05:01] LABS: Hematocrit 35.2 % (42.0-52.0); Hemoglobin 11.3 g/dL (11.7-16.6); Mean Corpuscular HGB Conc 32.1 g/dL (30.0-36.0); Mean Corpuscular Hemoglobin 31.6 pg (28.0-34.0); Mean Corpuscular Volume 98.3 fl (80-94); Mean Platelet Volume 10.1 fL (7.4-10.4); Platelet Count 132 10^3/cmm (130-400); Red Blood Count 3.58 10^6/uL (4.1-5.3); Red Cell Distribution Width 14.5 % (12.1-15.1); White Blood Count 10.8 10^3/uL (4.0-10.0)
[2022-08-17 05:18] LABS: Albumin Level 2.6 g/dL (3.5-5.2); Alkaline Phosphatase 90 U/L (40-130); Blood Urea Nitrogen 40 mg/dL (6-20); Calcium 7.3 mg/dL (8.5-10.5); Carbon Dioxide 18 mmol/L (22-29); Chloride 103 mmol/L (98-107); Globulin 3.7 g/dL (1.3-4.6); Glomerular Filtration Rate 26.7 mL/min (90-130); Glucose 70 mg/dL (65-115); Magnesium 2.1 mg/dL (1.7-2.3); Osmolality Calculated 292 mOsm/kg (285-295); Sodium 137 mmol/L (136-145); Total Bilirubin 0.3 mg/dL (0.15-1.2); Total Protein 6.3 g/dL (6.6-8.7)
[2022-08-17 05:28] LABS: Alanine Aminotransferase 18 U/L (0-41); Anion Gap 20.2 (5-19); Aspartate Amino Transferase 26 U/L (0-40); Potassium 4.2 mmol/L (3.5-5.1)
--- NOTE | 2022-08-17 05:41 | PM.ACPR ---
Acute Procedures Central Line Placement: Right Femoral: Time out performed: Yes Patient placed on monitor/pulse ox: Yes MD prep: mask, gown and gloves Central line prep: Chlorhexidine scrub and sterile drapes applied Local anesthesia used: lidocaine 1% Amount of anesthesia used (ml): 10 Ultrasound used for placement: Yes Central line lumen inserted: triple Post procedure: sutured in place, good blood return, all ports aspirated, flushed, capped and sterile dressing applied Patient tolerated procedure: well and no complications Complications: none
--- NOTE | 2022-08-17 05:43 | PM.ACPR ---
Acute Procedures Intubation: Time out performed: Yes Sedative: etomidate Mg given: 40 Paralytic: succinylcholine Mg given: 200 Laryngoscope: fiber optic video scope ET tube size: 8 ET tube uncuffed: Yes Tube secured depth (cm): 25 Tube secured location: lips Tube placement confirmation: visualized tube passing through cords, equal breath sounds bilaterally, no breath sounds over epigastrium and color change noted Patient tolerated procedure: well and no complications
--- NOTE | 2022-08-17 05:45 | PM.CCNAC ---
Critical Care Event Note 36 year old male with a past medical history of paraplegia, indwelling catheter, hypertension, stage IV ischial wound, presented to the ER with complaints of not feeling well for the last 4 days. He was admitted for the management of sepsis, acute urinary retention, patient was having significant withdrawal, he had maxed out on Precedex, was not responding appropriately to I.V Ativan's, he was extremely violent agitated, decision was made to intubate the patient and put on mechanical ventilation. Patient was successfully intubated and was subsequently placed on mechanical ventilation, he was also placed on propofol fentanyl and Versed. The high probability of a clinically significant, sudden or life threatening deterioration of the patient's [] system(s) required my full and direct attention, intervention and personal management. The critical care time is as shown. This time is in addition to time spent performing any reported procedures but includes the following: [x] Data and vital sign review and interpretation [x] Patient assessment, examination and intervention [x] Documentation [x] Medication orders and management Critical Care Time Code activated: No Critical Care Time (min): 60 Procedures Central Line Placement^ Right Femoral: Time out performed: Yes Patient placed on monitor/pulse ox: Yes MD prep: mask, gown and gloves Central line prep: Chlorhexidine scrub and sterile drapes applied Local anesthesia used: lidocaine 1% Amount of anesthesia used (ml): 10 Ultrasound used for placement: Yes Central line lumen inserted: triple Post procedure: sutured in place, good blood return, all ports aspirated, flushed, capped and sterile dressing applied Patient tolerated procedure: well and no complications Intubation Time out performed: Yes Sedative: etomidate Mg given: 40 Paralytic: succinylcholine Mg given: 200 Laryngoscope: fiber optic video scope ET tube size: 8 ET tube uncuffed: Yes Tube secured depth (cm): 25 Tube secured location: lips Tube placement confirmation: visualized tube passing through cords, equal breath sounds bilaterally, no breath sounds over epigastrium and color change noted Patient tolerated procedure: well and no complications Coding Level of Care Code Acute Code for g Fwd
[2022-08-17 05:59] LABS: ABG PCO2 35.3 mmHg (35-45); ABG PH Result 7.26 (7.35-7.45); Arterial Blood Gas Hematocrit 32.1 % (42-52); Base Excess ABG -10.2 mmol/L (-2.0-2.0); Blood Gas Allen Test Pos; Blood Gas Sample Site Radial, right; Blood Gas Sample Type Arterial; HCO3 ABG 15.9 mmol/L (22-26); Oxygen Device VENT
[2022-08-17 06:14] LABS: Absolute Neutrophil 10.3 10^3/cmm (1.4-6.5); Absolute Segmented Neutrophil 9.4 10/cmm (1.6-7.1); Band Neutrophils Absolute 0.9 10^3/cmm (0.0-1.2); Basophils Absolute 0.1 10^3/cmm (0.0-0.2); Lymphocytes 2 %; Monocytes Absolute 0.2 10^3/cmm (0.1-0.6); Platelet Estimate Normal (Normal); Segmented Neutrophils 87 %; Total Cells Counted 100 (0-100)
[2022-08-17 06:15] LABS: Polychromasia 1+
[2022-08-17 06:16] LABS: Hypochromasia 1+; Microcytosis 1+
[2022-08-17] MEDS: piperacillin-tazobactam 3.375 GM in sodium chloride 0.9% (plus) 50 ML IV ×3 (06:24→23:10)
[2022-08-17 06:50] LABS: Glucose Point of Care 116 mg/dL (70-110)
[2022-08-17] MEDS: propofol 1,000 MG/100 ML INJ 26.94 MG IV ×4 (07:12→23:15)
--- NOTE | 2022-08-17 07:33 | P.PN_ITS ---
Subjective Subjective: Was intubated overnight. Resting comfortably at this time. No other issues overnight. Vitals/I&O/Wt Last Vital Signs Temp 98.9 F 08/16/22 20:00 Pulse 89 08/17/22 06:00 Resp 14 08/17/22 06:02 BP 93/60 08/17/22 06:00 Pulse Ox 96 08/17/22 06:02 O2 Del Method 08/16/22 19:00 FiO2 30 08/17/22 06:02 08/16/22 08/17/22 08/17/22 22:59 06:59 14:59 Intake Total 792.164 / 3286.574 1621.329 / 4907.903 32.328 / 32.328 Output Total 3400 / 3400 Balance -2607.836 / -615.922 3042.329 / 1507.903 32.328 / 32.328 Weight last 48 hrs Weight 180 lb Physical Exam Narrative: General: Sedated, intubated. Appears comfortable. HEENT: Normocephalic, Atraumatic. External ears normal. Nasal passages patent without drainage. MMM. Heart: RRR. Resp: LCTA. No respiratory distress, no use of accessory muscles. Abd: Soft, non-tender. Non-distended. Extremities: No edema. Neuro: Paraplegic, spastic LE's. Urinary Catheter Management: Peña: Cath Placed During This Visit: no Data 08/17/22 03:30 08/17/22 03:30 Micro: Microbiology 08/16/22 06:20 Blood Culture - Preliminary Blood Escherichia coli 08/16/22 06:32 Blood Culture - Preliminary Blood Escherichia coli A&P Assessment and plan (1) Sepsis: (2) Acute renal failure (ARF): (3) Acute urinary obstruction: (4) DM type 2 (diabetes mellitus, type 2): (5) Neurogenic bladder: (6) HTN (hypertension): (7) Paraplegia: (8) Positive urine drug screen: Plan Nikko Aparicio is a 36 year old male with a past medical history of paraplegia, indwelling catheter, hypertension, stage IV ischial wound, Admitted to ICU for Sepsis, ARF, AMS. ICU for close inpatient monitoring. Currently sedated and intubated. Appears comfortable. Vitals stable. Systolics Blood cultures positive with E-coli. Susceptibilities pending. Continue Zosyn. IVF switched to D5NS due to hypoglycemic episode to 50's. WBC's improved overnight to 10.8 from 19.2. Na/K+ now normal. Cr down to 2.7 from 3.9. Has had good urine output overnight. Continue I/O's. Morphine for pain management. RAAT, O2 protocol. Lovenox for DVT PPx. Protonix for GI PPx. Zofran for nausea. Will have ativan available for acute anxiety, and/or for withdrawal symptoms if needed. Code Status: Full IVF:D5NS @100 DVT PPx: Lovenox GI PPx: Protonix ABx: Zosyn Diet: NPO Discharge plan: Home when appropriate. Attestations Medical Necessity Statement*: Continued ICU monitoring for sepsis, ARF, elevated risk of sudden clinical deterioration. Coding Level of Care Code Critical Care >/= 30 minutes Critical care time (in minutes): 40 The high probability of a clinically significant, sudden or life threatening deterioration, as referenced in this documentation, required my full and direct attention, intervention and personal management. The critical care time shown is in addition to time spent performing any reported separately billable procedures and includes the following: [x] Data and vital sign review and interpretation [x ] Patient assessment, examination and intervention [x] Medication orders and management [x] Patient/Family updates as able [x] Care Coordination and Documentation. Diagnoses Sepsis A41.9 Acute renal failure (ARF) N17.9 Acute urinary obstruction N13.9 DM type 2 (diabetes mellitus, type 2) E11.9 Neurogenic bladder N31.9 HTN (hypertension) I10 Paraplegia G82.20 Positive urine drug screen R82.5
[2022-08-17 07:54] LABS: Glucose Point of Care 68 mg/dL (70-110)
--- NOTE | 2022-08-17 08:49 | XRR_ITS ---
PROCEDURE INFORMATION: Exam: XR Chest Exam date and time: 08/17/2022 9:10 AM Age: 36 years old Clinical indication: Device placement; Other: Og placement; Prior surgery; Surgery type: Back; Additional info: Og tube placement TECHNIQUE: Imaging protocol: Radiologic exam of the chest. Views: 1 view. COMPARISON: CR (CHEST, ) 08/17/2022 4:18 AM FINDINGS: Tubes, catheters and devices: Interval placement of an orogastric tube with tip in the left upper abdominal region, in the area of the upper stomach. Endotracheal tube is seen without change with tip 3.1 cm from the marion. Lungs: Unchanged lung volumes with mild accentuation of the perihilar pulmonary vascularity. Decreased right basilar atelectasis. Pleural spaces: No pleural effusion. No pneumothorax. Heart/Mediastinum: Normal heart size. Normal mediastinum. Midline trachea. Bones/joints: Postsurgical changes of the lower thoracic and upper lumbar spine are once again seen. Soft tissues: Multiple external densities are seen overlying the chest, limiting assessment. XR/XR chest 1V portable [id number] IMPRESSION: 1. Endotracheal tube and orogastric tube, as noted above. 2. Unchanged lung volumes with mild accentuation of the perihilar pulmonary vascularity.
[2022-08-17] MEDS: enoxaparin 40 mg/0.4 mL Syringe SUBCUT (09:06)
[2022-08-17] MEDS: lactated ringers 1,000 ML 100 ML IV (09:07)
[2022-08-17] MEDS: baclofen 10 mg Tablet 30 MG PO ×2 (09:52→17:13)
[2022-08-17] MEDS: sodium bicarbonate 650 mg Tablet PO ×3 (09:52→21:00)
[2022-08-17] MEDS: pantoprazole DR 40 mg Tablet PO (09:52)
[2022-08-17 10:43] LABS: ABG PCO2 32.9 mmHg (35-45); ABG PH Result 7.33 (7.35-7.45); Alveolar-Arterial Oxygen Gradi 7.1 mmHg (5-10); Base Excess ABG -7.6 mmol/L (-2.0-2.0); Blood Gas Allen Test Pos; Blood Gas Operator Identificat GD; Blood Gas Sample Site Radial, right; Blood Gas Sample Type Arterial; Carboxyhemoglobin 0.9 %THgb (0.4-20.1); HCO3 ABG 17.4 mmol/L (22-26); Methemoglobin 1.2 % (0.4-1.5); Oxygen Device VENT; Oxygen Saturation ABG 99.1; Potassium Level - ABG 3.1 mmol/L (3.5-5.0); Total Hemoglobin 9.8 g/dL (14-18)
[2022-08-17] MEDS: dextrose 50% syringe 50 mL IVP (11:01)
[2022-08-17] MEDS: potassium chloride premix 100 ML 25 MEQ IV (11:02)
[2022-08-17] MEDS: dextrose 5%-sod chloride 0.9% 1,000 ML 100 ML IV ×2 (11:05→21:01)
[2022-08-17] MEDS: propofol 1,000 MG/100 ML INJ 29.39 MG IV ×2 (17:02→20:39)
[2022-08-17] MEDS: vancomycin 1,000 MG in sodium chloride 0.9% 250 ML 250 MG IV (17:12)
[2022-08-17] MEDS: acetaminophen 325 mg Tablet 650 MG PO (17:58)
--- NOTE | 2022-08-17 23:45 | PC.NURSE ---
Patient Decline and Subsequent Intubation Throughout the shift, starting at 1900 on 08/16/2022, Pt exhibited bizarre behavior including large spastic twitching and jerking movements. Pt would scream and yell incoherently, with no sign of understanding verbal commands or questions. Pt was receiving a precedex infusion (see MAR) and pt was given PRN ativan and morphine (see MAR). These medications would allow him to rest peacefully for a minimal amount of time and then he would again resume screaming and demonstrating spastic movements. Security was called to bedside multiple times for assistance holding the patient while IV's were replaced, and pt care was completed. Dr. Ross was kept updated regarding pt's condition and he was aware of and approved the PRN medications administered in addition to the precedex infusion. The patient had responded relatively well to the medication and would eventually resettle each time. However, with the 329 blood draw for AM labs, Pt became more erratic and violent in his screaming and his muscle convulsions. Security was once again called to bedside, in addition to Dr. Ross who immediately came to bedside. At this time, the pt had received PRN morphine and ativan, in addition to the precedex infusing at max rate ( see MAR). The medication was ineffective. He became more erratic and violent, hypertensive, tachycardic and tachypnic and Hypoxic (See Vitals). The decision was made to intubate. Dr Ross, Dr Espino, Mohamud, RT, Adelaide, WATER GAS OPERATOR, Nusrat, WATER GAS OPERATOR, Karla, Nursing Buyers' Agent and this RN were present for intubation. Unfortunatly, due to his erratic and violent movements, all previous IV's were lost. At 0410 an IO was placed in the L Tibia, marrow was aspirated and 10mL of saline flushed. At 041 Etomidate 20mg was administered and flushed. At 041 Succinylicholine 50mg was administered and flushed. At 041 Etomidate 20mg and an additional Succinylcholine 50mg was administered and flushed. At 041 pt was successfully intubated with a #8 ET tube. Pt was placed on mechanical ventilation and sedation medications were initiated. (see MAR).
[2022-08-18] VITALS (105 sets, daily range): BP systolic 78–108; BP diastolic 53–73; PULSE 63–84; RESP 14; TEMP 36.3–36.7; O2SAT 91–100; BMI 28.8
[2022-08-18] MEDS: propofol 1,000 MG/100 ML INJ 22.05 MG IV ×5 (03:46→22:10)
[2022-08-18] MEDS: piperacillin-tazobactam 3.375 GM in sodium chloride 0.9% (plus) 50 ML IV ×3 (06:19→22:56)
[2022-08-18 06:56] LABS: Basophils % 0.7 %; Eosinophils # 0.2 10^3/uL (0.0-0.8); Eosinophils % 3.9 %; Hematocrit 28.5 % (42.0-52.0); Hemoglobin 9.6 g/dL (11.7-16.6); Lymphocytes # 0.4 10^3/uL (0.8-4.8); Lymphocytes % 9.7 %; Mean Corpuscular HGB Conc 33.7 g/dL (30.0-36.0); Mean Corpuscular Hemoglobin 32.5 pg (28.0-34.0); Mean Corpuscular Volume 96.6 fl (80-94); Mean Platelet Volume 10.1 fL (7.4-10.4); Monocytes # 0.4 10^3/uL (0.2-0.9); Monocytes % 9.7 %; Neutrophils # 3.26 10^3/uL (1.8-7.7); Neutrophils % 75.3 %; Nucleated Red Blood Cells % 0 %; Platelet Count 90 10^3/cmm (130-400); Red Blood Count 2.95 10^6/uL (4.1-5.3); Red Cell Distribution Width 15.4 % (12.1-15.1); White Blood Count 4.3 10^3/uL (4.0-10.0)
[2022-08-18] MEDS: enoxaparin 40 mg/0.4 mL Syringe SUBCUT (07:33)
[2022-08-18] MEDS: dextrose 5%-sod chloride 0.9% 1,000 ML 100 ML IV ×2 (07:33→17:45)
[2022-08-18 07:45] LABS: Alanine Aminotransferase 18 U/L (0-41); Albumin Level 2.5 g/dL (3.5-5.2); Alkaline Phosphatase 85 U/L (40-130); Anion Gap 18.8 (5-19); Aspartate Amino Transferase 30 U/L (0-40); Blood Urea Nitrogen 37 mg/dL (6-20); Carbon Dioxide 17 mmol/L (22-29); Chloride 107 mmol/L (98-107); Globulin 2.3 g/dL (1.3-4.6); Glomerular Filtration Rate 27.9 mL/min (90-130); Glucose 117 mg/dL (65-115); Osmolality Calculated 300 mOsm/kg (285-295); Sodium 140 mmol/L (136-145); Total Bilirubin 0.6 mg/dL (0.15-1.2); Total Protein 4.8 g/dL (6.6-8.7)
[2022-08-18 07:48] LABS: Slide Review Slide Review Perform
[2022-08-18 07:57] LABS: Potassium 2.8 mmol/L (3.5-5.1)
[2022-08-18] MEDS: pantoprazole DR 40 mg Tablet PO (08:03)
[2022-08-18] MEDS: baclofen 10 mg Tablet 30 MG PO ×2 (08:03→18:00)
[2022-08-18] MEDS: potassium chloride premix 100 ML 50 MEQ IV (09:37)
[2022-08-18 12:14] LABS: ABG PCO2 83.1 mmHg (35-45); ABG PH Result 7.19 (7.35-7.45); Arterial Blood Gas Hematocrit 37.8 % (42-52); Base Excess ABG 0.9 mmol/L (-2.0-2.0); Blood Gas Allen Test Pos; Blood Gas Sample Site Radial, right; Blood Gas Sample Type Arterial; HCO3 ABG 31.3 mmol/L (22-26); Ionized Calcium Level - ABG 1.2 mmol/L (1.1-1.4); Oxygen Saturation ABG 95.3; PO2 ABG 90.3 mmHg (80.0-100.0); Potassium Level - ABG 4.9 mmol/L (3.5-5.0); Total Hemoglobin 12.3 g/dL (14-18)
[2022-08-18 12:15] LABS: Carboxyhemoglobin 0.9 %THgb (0.4-20.1); HGB O2 Sat 93.9 % (95-100); Methemoglobin 0.7 % (0.4-1.5)
--- NOTE | 2022-08-18 12:19 | PC.CHAP ---
Pastoral Care Encounter/Spiritual Assessment Type of Contact [] Declined contract technician visit [] Patient/Family/Request visit [] Outpatient visit [] Follow-up visit [] Physician referral [] Code/Alert [x] Routine visit [] Staff referral [] Actively dying [x] Patient sleeping [] Family support [] [] Out of room [] Palliative care [] [] Receiving care in room [] Pre-surgical visit [] Trauma [] Long length of stay [x] ICU visit [x] Other: vent Relational/Emotional Strength [] Patient feels connected with others/family/visitors/staff [] Distress [] Loneliness/isolation [] Abandonment Spirituality of Patient [] Person of Luz Elena [] Attends Confucianism of their Luz Elena [] Believes in Prayer [] Reads Bible or Sabianism materials [] There are Spiritual issues to be addressed Parachute/Combatant Diver Officer Interventions [x] Prayer [] Active listening [] Non-anxious presence [] Spiritual/emotional support [] Crisis/trauma care [] Spiritual counseling [] Bereavement support [] Provided bereavement packet [] Provided Bible/devotional materials [] Provided toy/stuffed animal, coloring book to patient or family member [] Provided Communion [] Anointing/Finley [] Salvation [x] Completed spiritual assessment [] Other: Impact on Illness or Injury [] Angry [] Fearful [] Anxious [] Often cries [] Exhaustion [] Unable to work [] Unable to attend gnosticism [] Unable to walk/stand [] Unable to read [] Unable to drive [] Unable to eat/drink [] Unable to sleep [] Unable to be with family [] Patient intubated [] Other: Summary Time spent with patient
[2022-08-18 12:23] LABS: Oxygen Device VENT
--- NOTE | 2022-08-18 16:03 | P.PN_ITS ---
Subjective Subjective: Seen today. Intubated ventilated sedated. Vitals/I&O/Wt Last Vital Signs Temp 97.7 F 08/18/22 08:00 Pulse 67 08/18/22 14:15 Resp 14 08/18/22 15:17 BP 102/68 08/18/22 14:15 Pulse Ox 99 08/18/22 15:17 O2 Del Method 08/18/22 08:00 FiO2 24 08/18/22 15:17 08/18/22 08/18/22 08/18/22 06:59 14:59 22:59 Intake Total 349.173 / 3778.225 1341.508 / 1341.508 Output Total 200 / 1425 Balance 149.173 / 2353.225 1341.508 / 1341.508 Weight last 48 hrs Weight 86 kg Weight 81.647 kg Physical Exam Narrative: General: Sedated, intubated. Appears comfortable. HEENT: Normocephalic, Atraumatic. Nasal passages patent without drainage. MMM. Heart: RRR. Normal S1-S2 Resp: LCTA. No respiratory distress, no use of accessory muscles. Transmitted breath sounds through the vent. Minimal vent settings Abd: Soft, non-tender. Non-distended. Extremities: No edema. Neuro: Paraplegic, spastic LE's. Examined sacral ischial ulcer with the surgeon. No fluctuance noted. No drainage no erythema. Urinary Catheter Management: Peña: Cath Placed During This Visit: yes Reason for Continuing Indwelling Catheter: Accurate Measurement of Urinary Outpu t in Critically Ill Patients Urinary Catheter Date of Insertion: 08/16/22 Urinary Catheter Time of Insertion: 09:56 Data 08/18/22 06:42 08/18/22 06:42 Micro: Microbiology 08/17/22 11:20 Gram Stain - Final Sputum - Endotracheal Tube Aspirate Sputum Culture - Preliminary 08/16/22 09:44 Urine Culture - Final Urine,Clean Catch 08/16/22 06:20 Blood Culture - Preliminary Blood Escherichia coli A&P Assessment and plan (1) Positive urine drug screen: (2) Sepsis: (3) Acute renal failure (ARF): (4) Acute urinary obstruction: (5) DM type 2 (diabetes mellitus, type 2): (6) Hyperkalemia: (7) Neurogenic bladder: (8) Chronic indwelling Peña catheter: (9) HTN (hypertension): (10) Tobacco abuse: (11) Paraplegia: (12) GERD (gastroesophageal reflux disease): (13) Hypocalcemia: (14) Hypoalbuminemia: (15) Hypokalemia: (16) Anxiety: (17) Acute renal failure: Plan #Sepsis secondary to gram-negative bacteremia #UTI #Indwelling catheter secondary to neurogenic bladder #Positive blood cultures with gram-negative bacteria, E. coli #Paraplegic #Former alcohol abuse. Quit 4 months ago as per roommate. #Hypertension #Stage IV ischial wound #Acute renal failure to post renal cause #Thrombocytopenia #Hypokalemia potassium 2.8 #Hypocalcemia #Hypoalbuminemia ? Patient requiring Levophed 4 mics ? Continue Versed, fentanyl, propofol ? On minimal vent settings. We will attempt for sedation vacation in a.m. and do a pressure support trial ? Continue on Zosyn ? Continue D5 NS ? Recheck blood cultures today ? Sliding scale insulin for diabetes however has been low therefore not requiring any coverage. ? Possible withdrawal from baclofen due to which patient had to be intubated. We have confirmed with roommate that patient does not drink anymore. This is not alcohol withdrawal. ? Baclofen being administered at a lower dose of 30 mg twice daily ? Continue Keppra, duloxetine ? Protonix 40 p.o. daily ? Hold off on spironolactone, hydrochlorothiazide ? We will use Precedex as needed ? Has had good urine output 1400 cc over last 24 hours. Creatinine improved to 2.6. ? Calcium is 7 however albumin is 2.5. Corrected calcium is normal. ? Potassium 2.8 today. Replete IV 40x1 -Hold gabapentin due to STEFANI at this time. Full code DVT prophylaxis: SCDs for now. We will hold Lovenox due to platelets being low. Attestations Medical Necessity Statement*: Intubated sedated in the ICU. Requires critical level care Coding Level of Care Code Critical Care >/= 30 minutes Critical care time (in minutes): 60 The high probability of a clinically significant, sudden or life threatening deterioration, as referenced in this documentation, required my full and direct attention, intervention and personal management. The critical care time shown is in addition to time spent performing any reported separately billable procedures and includes the following: [x] Data and vital sign review and interpretation [x ] Patient assessment, examination and intervention [x] Medication orders and management [x] Patient/Family updates as able [x] Care Coordination and Documentation. Other Coding Information Focused coding review requested Diagnoses Positive urine drug screen R82.5 Sepsis A41.9 Acute renal failure (ARF) N17.9 Acute urinary obstruction N13.9 DM type 2 (diabetes mellitus, type 2) E11.9 Hyperkalemia E87.5 Neurogenic bladder N31.9 Chronic indwelling Peña catheter Z97.8 HTN (hypertension) I10 Tobacco abuse Z72.0 Paraplegia G82.20 GERD (gastroesophageal reflux disease) K21.9 Hypocalcemia E83.51 Hypoalbuminemia E88.09 Hypokalemia E87.6 Anxiety F41.9 Acute renal failure N17.9
[2022-08-18] MEDS: vancomycin 1,000 MG in sodium chloride 0.9% 250 ML 250 MG IV (18:01)
--- NOTE | 2022-08-18 19:01 | XRR_ITS ---
PROCEDURE INFORMATION: Exam: XR Chest Exam date and time: 08/18/2022 7:11 PM Age: 36 years old Clinical indication: Device placement; Ng tube; Additional info: Check og tube placement TECHNIQUE: Imaging protocol: Radiologic exam of the chest. Views: 1 view. COMPARISON: CR (CHEST, ) 08/17/2022 9:10 AM FINDINGS: Tubes, catheters and devices: Stable positioning of endotracheal tube. Enteric tube terminates in the stomach. Lungs: No consolidation. Pleural spaces: No pleural effusion. No pneumothorax. Heart/Mediastinum: No cardiomegaly. Bones/joints: Spinal surgical hardware again noted in the lower thoracic and upper lumbar spine. Visualized osseous structures are intact. XR/XR chest 1V portable [id number] IMPRESSION: Enteric tube terminates in the stomach.
[2022-08-19] VITALS (105 sets, daily range): BP systolic 85–162; BP diastolic 54–113; PULSE 57–124; RESP 14–17; TEMP 36.1–36.5; O2SAT 87–100; BMI 30.1
[2022-08-19 00:46] LABS: Glucose Point of Care 188 mg/dL (70-110)
[2022-08-19] MEDS: propofol 1,000 MG/100 ML INJ 22.05 MG IV (02:32)
[2022-08-19 03:15] LABS: Basophils % 0.6 %; Eosinophils # 0.2 10^3/uL (0.0-0.8); Eosinophils % 3.4 %; Hematocrit 29.9 % (42.0-52.0); Hemoglobin 10.1 g/dL (11.7-16.6); Lymphocytes # 0.3 10^3/uL (0.8-4.8); Lymphocytes % 5.8 %; Mean Corpuscular HGB Conc 33.8 g/dL (30.0-36.0); Mean Corpuscular Hemoglobin 32.9 pg (28.0-34.0); Mean Corpuscular Volume 97.4 fl (80-94); Mean Platelet Volume 10.7 fL (7.4-10.4); Monocytes # 0.4 10^3/uL (0.2-0.9); Monocytes % 8.9 %; Neutrophils % 80.7 %; Nucleated Red Blood Cells % 0 %; Platelet Count 84 10^3/cmm (130-400); Red Blood Count 3.07 10^6/uL (4.1-5.3); Red Cell Distribution Width 15.7 % (12.1-15.1)
[2022-08-19] MEDS: dextrose 5%-sod chloride 0.9% 1,000 ML 100 ML IV ×2 (03:15→18:31)
[2022-08-19 03:40] LABS: ABG PCO2 32.2 mmHg (35-45); ABG PH Result 7.31 (7.35-7.45); Arterial Blood Gas Hematocrit 31.6 % (42-52); Blood Gas Allen Test Pos; Blood Gas Sample Site Radial, right; Blood Gas Sample Type Arterial; Carboxyhemoglobin 1.1 %THgb (0.4-20.1); HCO3 ABG 16.2 mmol/L (22-26); HGB O2 Sat 93.3 % (95-100); Ionized Calcium Level - ABG 1.1 mmol/L (1.1-1.4); Methemoglobin 1.4 % (0.4-1.5); Oxygen Device VENT; Oxygen Saturation ABG 95.7; PO2 ABG 77.7 mmHg (80.0-100.0); Potassium Level - ABG 2.6 mmol/L (3.5-5.0); Total Hemoglobin 10.3 g/dL (14-18)
[2022-08-19 03:41] LABS: Alveolar-Arterial Oxygen Gradi 6.7 mmHg (5-10)
[2022-08-19] MEDS: piperacillin-tazobactam 3.375 GM in sodium chloride 0.9% (plus) 50 ML IV ×3 (06:12→23:47)
[2022-08-19 06:34] LABS: Albumin Level 2.1 g/dL (3.5-5.2); Alkaline Phosphatase 90 U/L (40-130); Anion Gap 14.6 (5-19); Blood Urea Nitrogen 29 mg/dL (6-20); Calcium 7.6 mg/dL (8.5-10.5); Carbon Dioxide 17 mmol/L (22-29); Chloride 112 mmol/L (98-107); Globulin 3.3 g/dL (1.3-4.6); Glomerular Filtration Rate 33.8 mL/min (90-130); Glucose 171 mg/dL (65-115); Magnesium 2.1 mg/dL (1.7-2.3); Osmolality Calculated 302 mOsm/kg (285-295); Sodium 141 mmol/L (136-145); Total Bilirubin 0.6 mg/dL (0.15-1.2); Total Protein 5.4 g/dL (6.6-8.7)
--- NOTE | 2022-08-19 06:36 | PC.NURSE ---
Patient rested comfortably throughout the night. Titrated off versed and lowered Propofol towards end of shift.
[2022-08-19 06:51] LABS: Potassium 2.6 mmol/L (3.5-5.1)
[2022-08-19 07:43] LABS: Alanine Aminotransferase 18 U/L (0-41); Aspartate Amino Transferase 22 U/L (0-40)
[2022-08-19] MEDS: potassium chloride premix 100 ML 25 MEQ IV (07:56)
[2022-08-19] MEDS: duloxetine 60 mg Capsule PO (08:02)
[2022-08-19] MEDS: baclofen 10 mg Tablet 30 MG PO ×2 (08:02→18:32)
[2022-08-19] MEDS: pantoprazole DR 40 mg Tablet PO (08:02)
[2022-08-19] MEDS: propofol 1,000 MG/100 ML INJ 17.15 MG IV (08:35)
--- NOTE | 2022-08-19 11:29 | CT_ITS ---
WS: [id number] CT HEAD NONCONTRAST HISTORY: anisocoria TECHNIQUE: Contiguous axial imaging performed through the brain in 2.5 mm imaging. Bone and soft tiss ue windows. Sagittal and coronal reformats reviewed. All CT scans at [facility] use at least one of these dose optimization techniques: automated exposure control; mA and/or kV adjustment per pa tient size (includes targeted exams where dose is matched to clinical indication); or iterative recon struction. DLP: 1139.94 mGy.cm COMPARISON: 05/14/2008 No acute intracranial hemorrhage, midline shift or mass effect. Mild atrophy and small vessel ischemic disease. No prior infarcts. No mass or mass effect. Ventricles: Normal size with no hydrocephalus. No inferior displacement of cerebellar tonsils. Paranasal sinuses: Very mild mucoperiosteal thickening in the ethmoid air cells. No air-fluid levels. Small mucous retention cyst or polyp along the medial wall RIGHT maxillary sinus. Mastoid air cells: Well pneumatized. Calvarium and scalp: Skull is intact with no soft tissue edema or swelling. CT/CT head wo con* [id number] IMPRESSION: 1. No acute intracranial hemorrhage or edema. 2. Very mild cerebral atrophy.
--- NOTE | 2022-08-19 12:31 | PC.SOCIAL ---
Imm update Imm update not complete as patient is intubated and is not expected to discharge in the next 24-48 hours.
--- NOTE | 2022-08-19 16:30 | PC.NURSE ---
Addendum entered by Adelaide Recio RN 08/19/22 23:08: Home medication list confirmed on EHR. Home medications placed in [facility]. Original Note: Home Meds Patient ex- brought in home medications.
--- NOTE | 2022-08-19 18:07 | P.PN_ITS ---
Subjective Subjective: Intubated sedated. Sedation is being weaned off. Propofol is down to 14. Versed has been titrated off. Fentanyl is being weaned off as well. Levophed has been weaned off. 4 out of 4 blood cultures positive for E. coli. Family members updated at bedside. Ex-, ex [id number], son, berte nd all present at bedside. Patient's pupils were unequal this morning however reactive to light. Head CT was done which was negative for acute pathology. When he is was being wheeled down to CT scan he did try to open his eyes a little bit however otherwise is not responsive. Vitals/I&O/Wt Last Vital Signs Temp 97.0 F L 08/19/22 08:00 Pulse 81 08/19/22 17:45 Resp 14 08/19/22 15:35 BP 162/110 08/19/22 17:45 Pulse Ox 99 08/19/22 17:45 O2 Del Method 08/19/22 14:00 FiO2 24 08/19/22 16:00 08/19/22 08/19/22 08/19/22 06:59 14:59 22:59 Intake Total 1220.237 / 4465.711 1081.666 / 1081.666 Output Total 775 / 1675 Balance 445.237 / 2790.711 1081.666 / 1081.666 Weight last 48 hrs Weight 89.811 kg Weight 86 kg Physical Exam Narrative: General: Sedated, intubated. Appears comfortable. HEENT: Normocephalic, Atraumatic. Nasal passages patent without drainage. MMM. Anisocoria noted. PERRLA. Heart: RRR. Normal S1-S2 Resp: LCTA. No respiratory distress, no use of accessory muscles. Transmitted breath sounds through the vent. Minimal vent settings Abd: Soft, non-tender. Non-distended. Extremities: No edema. Neuro: Paraplegic, spastic LE's. Examined sacral ischial ulcer with the surgeon. No fluctuance noted. No drainage no erythema. Urinary Catheter Management: Peña: Cath Placed During This Visit: yes Reason for Continuing Indwelling Catheter: Accurate Measurement of Urinary Output in Critically Ill Patients Urinary Catheter Date of Insertion: 08/16/22 Urinary Catheter Time of Insertion: 09:56 Data 08/19/22 02:45 08/19/22 12:38 Micro: Microbiology 08/16/22 06:20 Blood Culture - Final Blood Escherichia coli 08/16/22 06:32 Blood Culture - Final Blood Escherichia coli 08/17/22 11:20 Gram Stain - Final Sputum - Endotracheal Tube Aspirate Sputum Culture - Final A&P Assessment and plan (1) Positive urine drug screen: (2) Sepsis: (3) Acute renal failure (ARF): (4) Acute urinary obstruction: (5) DM type 2 (diabetes mellitus, type 2): (6) Hyperkalemia: (7) Neurogenic bladder: (8) Chronic indwelling Peña catheter: (9) HTN (hypertension): (10) Tobacco abuse: (11) Paraplegia: (12) GERD (gastroesophageal reflux disease): (13) Hypocalcemia: (14) Hypoalbuminemia: (15) Hypokalemia: (16) Anxiety: (17) Acute renal failure: Plan #Sepsis secondary to gram-negative bacteremia #UTI #Indwelling catheter secondary to neurogenic bladder #Positive blood cultures with gram-negative bacteria, E. coli #Paraplegic #Former alcohol abuse. Quit 4 months ago as per roommate. #Hypertension #Stage IV ischial wound #Acute renal failure to post renal cause #Thrombocytopenia #Hypokalemia potassium 2.6 #Hypocalcemia #Hypoalbuminemia ? Continue to wean off sedation. ? On minimal vent settings. We will attempt for sedation vacation in a.m. and do a pressure support trial ? Continue on Zosyn ? Continue D5 NS ? Admission blood cultures 4 out of 4 bottles positive for E. coli. Repeat cultures from 08/18 negative to date. ? Sliding scale insulin for diabetes however has been low therefore not requiring any coverage. ? Possible withdrawal from baclofen due to which patient had to be intubated. We have confirmed with roommate that patient does not drink anymore. This is not alcohol withdrawal. ? Baclofen being administered at a lower dose of 30 mg twice daily ? Continue Keppra, duloxetine ? Protonix 40 p.o. daily -I have asked family to bring all his medications so we can double check all dosages and what he is on. Family has informed me that he has been intubated 3 times in the past and every time he has been a difficult extubation. They state he does not really wake up after he is intubated . ? Hold off on spironolactone, hydrochlorothiazide ? We will use Precedex as needed ? Urine output is good in last 24 hours. Creatinine is improved to 2.2. ? Hypokalemia this AM. IV potassium 40 ordered. BMP to be repeated at noon today. However it was canceled for some reason. We will investigate as to what may have happened. We will attempt to redraw a BMP for this evening. ? Calcium is 7 however albumin is 2.5. Corrected calcium is normal. -Hold gabapentin due to STEFANI at this time. -CT head negative for acute pathology ? Attempt to wean off sedation and try pressure support trial in a.m Full code DVT prophylaxis: SCDs for now. We will hold Lovenox due to platelets being low. Attestations Medical Necessity Statement*: Continue critical care in ICU setting. Patient is still intubated. Coding Level of Care Code Critical Care >/= 30 minutes Critical care time (in minutes): 45 The high probability of a clinically significant, sudden or life threatening deterioration, as referenced in this documentation, required my full and direct attention, intervention and personal management. The critical care time shown is in addition to time spent performing any reported separately billable procedures and includes the following: [x] Data and vital sign review and interpretation [x ] Patient assessment, examination and intervention [x] Medication orders and management [x] Patient/Family updates as able [x] Care Coordination and Documentation. Diagnoses Positive urine drug screen R82.5 Sepsis A41.9 Acute renal failure (ARF) N17.9 Acute urinary obstruction N13.9 DM type 2 (diabetes mellitus, type 2) E11.9 Hyperkalemia E87.5 Neurogenic bladder N31.9 Chronic indwelling Peña catheter Z97.8 HTN (hypertension) I10 Tobacco abuse Z72.0 Paraplegia G82.20 GERD (gastroesophageal reflux disease) K21.9 Hypocalcemia E83.51 Hypoalbuminemia E88.09 Hypokalemia E87.6 Anxiety F41.9 Acute renal failure N17.9
[2022-08-19] MEDS: vancomycin 1,000 MG in sodium chloride 0.9% 250 ML 250 MG IV (18:31)
--- NOTE | 2022-08-19 19:30 | PC.NURSE ---
Dr. Aguiar called unit @approximately 1930. Verbal order to avoid use of Versed and to start Precedex if needed.
--- NOTE | 2022-08-19 19:59 | PC.NUTR ---
MD consult received for TF. Per initial nutritional assessment: recommend Glucerna 1.2 starting @ 15 cc/hr increasing 10 cc Q8H as tolerated until goal rate of 55 cc/hr is reached with [id number] cc/hr Q6H or per MD discretion. Recommend consideration of 1 scoop beneprotein powder added/mixed into each fresh water flush to aid in wound healing
[2022-08-19] MEDS: dextrose 5%-sod chloride 0.45% 1,000 ML 75 ML IV (20:44)
--- NOTE | 2022-08-19 22:59 | PC.NURSE ---
Addendum entered by Benton Davis RN 08/19/22 23:14: Wasted 100ml of versed with Adelaide Chew RN Original Note: Versed Wasted: Approximately 100ml of Versed wasted in sink w/ Benton Davis RN.
[2022-08-19 23:07] LABS: Anion Gap 17.2 (5-19); Blood Urea Nitrogen 25 mg/dL (6-20); Calcium 7.8 mg/dL (8.5-10.5); Carbon Dioxide 17 mmol/L (22-29); Chloride 112 mmol/L (98-107); Glomerular Filtration Rate 35.7 mL/min (90-130); Glucose 144 mg/dL (65-115); Osmolality Calculated 303 mOsm/kg (285-295); Potassium 3.2 mmol/L (3.5-5.1); Sodium 143 mmol/L (136-145)
[2022-08-19 23:23] LABS: Vancomycin Trough 34.6 ug/mL (10-15)
[2022-08-20] VITALS (46 sets, daily range): BP systolic 108–183; BP diastolic 59–103; PULSE 58–121; RESP 14–27; TEMP 36.4–38.4; O2SAT 89–99
[2022-08-20] MEDS: chlorhexidine gluconate 4% Btl 118 mL 1 APPLIC TOPICAL (01:56)
[2022-08-20] MEDS: LORazepam 2 mg/mL INJ 1 mL 1 MG IVP ×2 (03:13→10:19)
--- NOTE | 2022-08-20 03:23 | XRR_ITS ---
PROCEDURE INFORMATION: Exam: XR Chest Exam date and time: 08/20/2022 3:32 AM Age: 36 years old Clinical indication: Shortness of breath; Prior surgery; Surgery type: Thoracolumbar fusion; Patient HX: Declining 02 sats into high 80s. Intubated with og in place. ; Additional info: Low sat TECHNIQUE: Imaging protocol: Radiologic exam of the chest. Views: 1 view. COMPARISON: CR (CHEST, ) 08/18/2022 7:11 PM FINDINGS: Tubes, catheters and devices: ET tube and NG tube remain in place and appears similar in position. Lungs: No consolidation. Unchanged to slightly increased bilateral hazy reticular opacities, likely at least partially related to low lung volumes and technique however other etiologies including changes of fluid overload and/or CHF are also consideration, correlate clinically. Pleural spaces: Probable layering bilateral pleural effusions. No pneumothorax. Heart/Mediastinum: The cardiac silhouette appears similar to the prior exam however is incompletely and suboptimally evaluated secondary to technique and low lung volumes. Bones/joints: No acute fracture. Bilateral posterior rods and pedicle screws fixing partially imaged lower thoracic spine appear similar to the prior exam without findings of hardware failure loosening. XR/XR chest 1V portable [id number] IMPRESSION: 1. Unchanged to slightly increased bilateral hazy reticular opacities, this finding is likely at least partially related to low lung volumes and technique however other etiologies including early changes of fluid overload and/or CHF are also consideration. Correlate and follow-up as clinically indicated. 2. Probable layering bilateral effusions. An upright lateral chest radiograph may be helpful for further evaluation if clinically indicated.
--- NOTE | 2022-08-20 03:24 | PC.NURSE ---
Pt has had rthymic back and forth motions frequently throughout the shift. @approximately 0300 pt Sp02 dropped to 84% and sustained. Pt was repositioned and suctioned. RT called. Julian RT checked for a cuff leak (none auscultated). Right side lung sounds diminished. Fio2 titrated up to 40%. Dr. Cosby aware. Dr. Cosby on unit.
[2022-08-20] MEDS: propofol 1,000 MG/100 ML INJ 17.15 MG IV (03:40)
[2022-08-20 03:58] LABS: Basophils % 0.6 %; Eosinophils # 0.1 10^3/uL (0.0-0.8); Hemoglobin 9.5 g/dL (11.7-16.6); Lymphocytes # 0.5 10^3/uL (0.8-4.8); Lymphocytes % 9.1 %; Mean Corpuscular HGB Conc 33.9 g/dL (30.0-36.0); Mean Corpuscular Hemoglobin 32.2 pg (28.0-34.0); Mean Corpuscular Volume 94.9 fl (80-94); Mean Platelet Volume 10.6 fL (7.4-10.4); Monocytes # 0.5 10^3/uL (0.2-0.9); Monocytes % 8.9 %; Neutrophils # 4.04 10^3/uL (1.8-7.7); Neutrophils % 79.6 %; Nucleated Red Blood Cells % 0 %; Platelet Count 101 10^3/cmm (130-400); Red Blood Count 2.95 10^6/uL (4.1-5.3); Red Cell Distribution Width 15.8 % (12.1-15.1); White Blood Count 5.1 10^3/uL (4.0-10.0)
[2022-08-20 04:21] LABS: Alanine Aminotransferase 20 U/L (0-41); Albumin Level 2.3 g/dL (3.5-5.2); Alkaline Phosphatase 94 U/L (40-130); Anion Gap 17.3 (5-19); Aspartate Amino Transferase 23 U/L (0-40); Blood Urea Nitrogen 26 mg/dL (6-20); Calcium 7.7 mg/dL (8.5-10.5); Carbon Dioxide 17 mmol/L (22-29); Chloride 113 mmol/L (98-107); Globulin 3.3 g/dL (1.3-4.6); Glomerular Filtration Rate 35.7 mL/min (90-130); Glucose 138 mg/dL (65-115); Osmolality Calculated 305 mOsm/kg (285-295); Potassium 3.3 mmol/L (3.5-5.1); Sodium 144 mmol/L (136-145); Total Bilirubin 0.5 mg/dL (0.15-1.2); Total Protein 5.6 g/dL (6.6-8.7)
[2022-08-20 04:26] LABS: Lactate (Lactic Acid level) 0.8 mmol/L (0.5-2.2)
[2022-08-20 04:43] LABS: Creatine Phosphokinase 537 U/L (39-308)
[2022-08-20] MEDS: piperacillin-tazobactam 3.375 GM in sodium chloride 0.9% (plus) 50 ML IV (06:20)
[2022-08-20] MEDS: duloxetine 60 mg Capsule PO (08:03)
[2022-08-20] MEDS: pantoprazole DR 40 mg Tablet PO (08:04)
[2022-08-20] MEDS: baclofen 10 mg Tablet 30 MG PO ×2 (08:04→11:27)
--- NOTE | 2022-08-20 09:46 | PC.NURSE ---
Dr. Aguiar at bedside, observed repetitive rhythmic movements of upper body. HCP to consult Neurology, order given to come off sedation and one time oral potassium
[2022-08-20] MEDS: potassium chloride oral liq 20 mEq/15 mL UDC PO (10:04)
--- NOTE | 2022-08-20 10:47 | PC.CHAP ---
Pastoral Care Encounter/Spiritual Assessment Type of Contact [] Declined fact checker visit [] Patient/Family/Request visit [] Outpatient visit [] Follow-up visit [] Physician referral [] Code/Alert [x] Routine visit [] Staff referral [] Actively dying [x] Patient sleeping [] Family support [] [] Out of room [] Palliative care [] [] Receiving care in room [] Pre-surgical visit [] Trauma [] Long length of stay [x] ICU visit [x] Other: vent Relational/Emotional Strength [] Patient feels connected with others/family/visitors/staff [] Distress [] Loneliness/isolation [] Abandonment Spirituality of Patient [] Person of Luz [place] [] Attends Jain of their Luz Elena [] Believes in Prayer [] Reads Bible or Islam materials [] There are Spiritual issues to be addressed [employer] Interventions [x] Prayer [] Active listening [] Non-anxious presence [] Spiritual/emotional support [] Crisis/trauma care [] Spiritual counseling [] Bereavement support [] Provided bereavement packet [] Provided Bible/devotional materials [] Provided toy/stuffed animal, coloring book to patient or family member [] Provided Communion [] Anointing/[place] [] Salvation [x] Completed spiritual assessment [] Other: Impact on Illness or Injury [] Angry [] Fearful [] Anxious [] Often cries [] Exhaustion [] Unable to work [] Unable to attend religious [] Unable to walk/stand [] Unable to read [] Unable to drive [] Unable to eat/drink [] Unable to sleep [] Unable to be with family [] Patient intubated [] Other: Summary Time spent with patient
--- NOTE | 2022-08-20 11:39 | PC.NUTR ---
TF consult received. Recommend Glucerna 1.2 starting @ 15 cc/hr increasing 10 cc Q8H as tolerated until goal rate of 55 cc/hr is reached with fresh water flushes 150 cc/hr Q6H or per MD discretion. Recommend consideration of 1 scoop Beneprotein powder added/mixed into each fresh water flush to aid in wound healing. Details in RD assessment.
--- NOTE | 2022-08-20 12:36 | P.CONIM_ITS ---
Providers/Reason For Consult Consulting Physician/Specialty*: Dr. 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 He presented to the emergency department in delirium with a temperature of 100.8, tachycardia and anuria on 08/16/2022. He has been sick for several days, just not feeling well. He is followed by wound care for an ischial ulcer. His last visit on 08/11/2022 showed a pressure ulcer on the left gluteus and that was debrided by Dr. Cabrera. He has been followed by home health since then. He was seen by Dr. Smith for hospitalist. He provided the additional history that the patient was experiencing diarrhea and he was hypotensive with a blood pressure of 105/57, leukocytosis with white count of 19.7 and a left shift. He had metabolic acidosis with an anion gap of 22.7. Lactate 2.9. His urine indicated urinary tract infection with 40-55 white cells. His urine was positive for opioids, benzodiazepines and marijuana. Additionally, his sodium was 126, creatinine 3.9. He was treated for sepsis and acute renal failure. He was confused. He became more agitated and on 08/17 he was intubated and placed on mechanical ventilation, fentanyl, Versed. I was contacted today by Dr. Aguiar because in the last several days of attempting to wean him from sedatives he has not had purposeful behavior. Over the course of the week his white count has come down to 5.1. His platelet count fell to a jean of 84 yesterday and 101 today. Sodium came up to normal. Potassium has been low, as low as 2.6 in parallel with his pH which was 7.19-day before yesterday and still only 7.3 yesterday. He has been acidotic throughout his stay. He has had restless stereotypic movements of jerking his head to the left and flexing his shoulders since attempts have been made to wean him from sedation. His movements are vigorous enough to potentially extubate. Dr. Aguiar is concerned about extubating him because he is not showing signs of a gag reflex. Current antibiotics include vancomycin. He was started on levetiracetam 500 mg twice daily because of his stereotypic movements and failure to become alert I will get spinal fluid on him later or you can ask radiology to do it.. Review of Systems Narrative: He lives alone. He is paraplegic from a previous accident. He is dependent on baclofen and low-dose hydrocodone. He has used some alcohol in the past but apparently not recently. Medications/Allergies Home Medications Medication Instructions Recorded Confirmed Last Taken Type aspirin-caffeine 845 mg-65 mg oral 1 ea PO Q6H PRN Pain 03/04/20 08/16/22 04/05/20 History powder packet (BC Pain Relief) gabapentin 300 mg capsule 900 mg PO BID #180 caps 08/01/20 08/16/22 Unknown Rx zolpidem 5 mg tablet (Ambien) 5 mg PO BEDTIME #30 tabs 06/17/21 08/16/22 Unknown Rx levetiracetam 500 mg See Rx Instructions .Route 09/03/21 08/19/22 Unknown Rx tablet,extended release 24 hr .COMPLEX #60 tabs trazodone 150 mg tablet 150 mg PO .qhs #90 tabs 09/23/21 08/19/22 Unknown Rx pantoprazole 40 mg tablet,delayed 40 mg PO DAILY #90 tabs 12/19/21 08/19/22 Unknown Rx release (Protonix) alprazolam 0.5 mg tablet 0.5 mg PO DAILY #30 tabs 02/26/22 08/16/22 Unknown Rx glimepiride 4 mg tablet (Amaryl) 4 mg PO BID #180 tabs 02/26/22 08/19/22 Unknown Rx bisacodyl 10 mg rectal suppository 10 mg HI DAILY PRN constipation 03/31/22 08/16/22 Unknown Rx #12 ea duloxetine 30 mg capsule,delayed See Rx Instructions .Route 03/31/22 08/19/22 Unknown Rx release .COMPLEX #90 caps ondansetron HCl 4 mg tablet See Rx Instructions .Route 03/31/22 08/16/22 Unknown Rx .COMPLEX #30 tabs spironolactone 25 1 tab PO DAILY #90 tabs 03/31/22 08/19/22 Unknown Rx mg-hydrochlorothiazide 25 mg tablet (Aldactazide) baclofen 20 mg tablet 60 mg PO BID #180 tabs 04/03/22 08/19/22 Unknown Rx duloxetine 60 mg capsule,delayed 60 mg PO DAILY #90 caps 04/03/22 08/19/22 Unknown Rx release varenicline 1 mg tablet 1 mg PO BID #180 tabs 04/21/22 08/19/22 Unknown Rx hydrocodone 5 mg-acetaminophen 325 1 tab PO BID PRN pain 1 month #14 05/01/22 08/16/22 Unknown Rx mg tablet tabs bisacodyl 10 mg rectal suppository 10 mg HI DAILY PRN Constipation 08/16/22 08/16/22 Unknown History Allergies Allergy/AdvReac Type Severity Reaction Status Date / Time ceftriaxone [From Rocephin] Allergy ALGY-Hives Verified 04/03/22 14:39 levofloxacin [From Levaquin] Allergy Unknown Verified 04/03/22 14:39 Current Medications Generic Name Dose Route Start Last Admin Trade Name Freq PRN Reason Stop Dose Admin Acetaminophen 650 mg 08/17/22 17:35 08/17/22 17:58 Acetaminophen 325 Mg Tablet PO 650 mg Q6H PRN Administration FEVER Baclofen 30 mg 08/16/22 18:00 08/20/22 08:04 Baclofen 10 Mg Tablet PO 30 mg BID CASEY Administration Chlorhexidine Gluconate 1 applic 08/20/22 00:19 08/20/22 01:56 Chlorhexidine Gluconate 4% Btl 118 Ml TOPICAL 1 applic DAILY PRN Administration Use w/ Bed bath Duloxetine HCl 60 mg 08/19/22 09:00 08/20/22 08:03 Duloxetine 60 Mg Capsule PO 60 mg DAILY CASEY Administration Piperacillin Sod/Tazobactam 50 mls @ 12.5 mls/hr 08/16/22 15:00 08/20/22 06:20 Sod 3.375 gm/ Sodium Chloride IV 12.5 mls/hr Q8H CASEY Administration Protocol Vancomycin HCl 1,000 mg/ 250 mls @ 250 mls/hr 08/16/22 17:30 08/19/22 19:32 Sodium Chloride IV Infused Q24H CASEY Infusion Protocol Propofol 1,000 mg in 100 mls @ 0 mls/hr 08/17/22 04:30 08/20/22 04:56 Diprivan IV 20 mcg/kg/min .Q0M CASEY 9.8 mls/hr Titration Protocol Per Protocol Fentanyl 2,500 mcg/ Sodium 250 mls @ 0 mls/hr 08/17/22 04:30 08/19/22 19:10 Chloride IV 50 mcg/hr .Q0M CASEY 5 mls/hr Titration Protocol Per Protocol Midazolam HCl 100 mg/ Sodium 100 mls @ 0 mls/hr 08/17/22 05:30 08/19/22 22:58 Chloride IV Infused .Q0M CASEY Titration Protocol Per Protocol Norepinephrine Bitartrate 4 mg 254 mls @ 0 mls/hr 08/18/22 01:15 08/19/22 04:24 / Dextrose IV 0 mcg/min .Q0M CASEY 0 mls/hr Titration Protocol Per Protocol Dextrose/Sodium Chloride 1,000 mls @ 75 mls/hr 08/19/22 19:00 08/20/22 09:46 Dextrose 5%-Sod Chloride 0.45% IV Not Given .[id number] CASEY Lorazepam 1 mg 08/16/22 16:59 08/20/22 03:13 Lorazepam 2 Mg/Ml Inj 1 Ml IVP 1 mg Q8H PRN Administration ANXIETY Morphine Sulfate 4 mg 08/16/22 16:58 08/17/22 03:59 Morphine 4 Mg/Ml Sdv 1 Ml IVP 4 mg Q4H PRN Administration SEVERE PAIN Pantoprazole Sodium 40 mg 08/16/22 09:00 08/20/22 08:[address] 40 Mg Tablet PO 40 mg DAILY CASEY Administration Thiamine HCl 100 mg 08/20/22 09:00 08/20/22 08:04 Thiamine 100 Mg/Ml Sdv IVP 100 mg DAILY CASEY Administration PFSH Acute PFSH: Medical History (Updated 08/20/22 @ 12:57 by Irma Ledbetter MD) Basal cell carcinoma HTN (hypertension) Paraplegia 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 UTI (urinary tract infection) Wound abscess Surgical History Hx of cholecystectomy Previous back surgery S/P ankle ligament repair Family History Mother , at age 60 Chronic kidney disease (CKD) Father , at age 71 Natural with unknown cause Other Anemia CAD (coronary artery disease) Diabetes Hypertension Social History Smoking and tobacco status: current every day smoker Alcohol intake: current Alcohol intake frequency: holidays/special occasions only Marital status: Current occupational status: disabled Vitals/I&O/Wt Last Vital Signs Temp 97.9 F 08/20/22 04:00 Pulse 75 08/20/22 09:00 Resp 27 H 08/20/22 10:00 BP 183/94 08/20/22 08:00 Pulse Ox 92 08/20/22 10:00 O2 Del Method 08/19/22 14:00 FiO2 40 08/20/22 10:00 08/19/22 08/20/22 08/20/22 22:59 06:59 14:59 Intake Total 749.750 / 1848.704 261.634 / 2110.338 Output Total 1150 / 1150 Balance 749.750 / 1848.704 -888.366 / 960.338 Weight last 48 hrs Weight 198 lb Physical Exam Narrative: He was sedated when I arrived lying quietly in the bed turned to the left. Mental status exam: No response to voice. He does not follow commands. He has no response to nailbed pressure or brow pressure. Cranial nerves: The eyes are directed downward but he has no ocular bobbing. Pupils 6 mm and reactive. No doll's eyes. Spontaneously he has rhythmic left to right eye movements that are random and somewhat in time with his other stereotypic movements. ET tube in the mouth and there is no response to moving the ET tube. Motor: He has rhythmic very strong turning of the head to the left, shrugging of the shoulders and inward rotation of the shoulders and turning of the trunk to the left. He moved to the left side in the bed unless restrained. Deep tendon reflexes: Mute in the upper extremities. Chest: Clear to auscultation. Cardiovascular: S1 and S2 normal without murmur or gallop. Urinary Catheter Management: Peña: Cath Placed During This Visit: yes Reason for Continuing Indwelling Catheter: Accurate Measurement of Urinary Output in Critically Ill Patients Urinary Catheter Date of Insertion: 08/16/22 Urinary Catheter Time of Insertion: 09:56 Data 08/20/22 03:45 08/20/22 03:45 Micro: Microbiology 08/16/22 06:20 Blood Culture - Final Blood Escherichia coli 08/16/22 06:32 Blood Culture - Final Blood Escherichia coli 08/17/22 11:20 Gram Stain - Final Sputum - Endotracheal Tube Aspirate Sputum Culture - Final A&P Assessment and plan (1) Toxic metabolic encephalopathy: 36-year-old paraplegic man with chronic decubitus of the left buttock who recently had a systemic illness that included diarrhea (presumably affecting his decubitus ulcer) and infected appearing urine. He presented with low-grade fever and altered mental status as well as acute renal failure. He has been sedated because he was violently agitated but is not waking up from sedative and now appears to have stereotypic repetitive behaviors and is not showing any signs of voluntary activity. He should be presumed to have ED TEACHER infection until proven otherwise. Spinal fluid should be obtained to assess the effect of current antibiotics on the ED TEACHER. He is allergic to ceftriaxone and levofloxacin but he has been receiving vancomycin. His mental status may also still be effective the profound illness has afflicted him including sepsis. Dr. Aguiar has addressed the potential for baclofen withdrawal as he was on high-dose baclofen for his severe paraplegia. I do not see any signs of spasms in his legs on exam today. We will attempt to get an EEG at the bedside. I have instructed the nurse on scrubbing the patient's head with alcohol and turning all automatic IVs off during the study to reduce artifact. I have talked with the electrical power station technician and asked her to do the study this afternoon if possible (2) Sepsis: Qualifiers: Sepsis type: sepsis due to unspecified organism Sepsis acute organ dy sfunction status: with acute organ dysfunction Severe sepsis acute organ d ysfunction type: disseminated intravascular coagulopathy (3) Hypokalemia: (4) Acute renal failure: (5) Acute renal failure (ARF): Consult Attestations Medical Necessity Statement: With profound alteration of mental status and multisystem failure needs ICU stay and currently elevated Coding Level of Care Code Acute Code for [facility] Fwd Diagnoses Toxic metabolic encephalopathy G92.8 Sepsis A41.9 Sepsis type: sepsis due to unspecified organism Sepsis acute organ dysfunction status: with acute organ dysfunction Severe sepsis acute organ dysfunction type: disseminated intravascular coagulopathy Hypokalemia E87.6 Acute renal failure N17.9 Acute renal failure (ARF) N17.9
--- NOTE | 2022-08-20 12:50 | PC.NURSE ---
Dr. Ledbetter requested all sedation be turned off for neuro assessment. patient placed on 25 mcg of Fentanyl drip per Dr. Aguiar order and order for 20 mg Lasix IVP now, 5mg Zyprexa now. Patient RR 40 on vent, Dr. Aguiar gave order to resedate patient
--- NOTE | 2022-08-20 13:14 | FL_ITS ---
WS: [id number] FLUOROSCOPY TECHNIQUE: 1 Spot fluoroscopic image obtained for attempted lumbar puncture FLUOROSCOPY TIME: 1.7 minutes CLINICAL INFORMATION: R/o meningitis COMPARISON: None. TECHNIQUE: Informed consent was obtained on the floor by referring physician. Patient is intubated and sedated. Respiratory therapy present. Timeout was performed to confirm correct patient, procedure, and site. Patient was prepped and draped in the usual sterile fashion. Lidocaine 1% was used for local anesthes ia. Utilizing fluoroscopic guidance, a 3.5 inch 22-gauge spinal needle was advanced into the subarach noid space at L2-L3 via right oblique sublaminar approach. Tiny flash of CSF was visualized. Needle w as repositioned multiple times without additional flow obtained. Narrowed tapering of the thecal sac in the lumbar spine seen on the prior CT abdomen pelvis in 2019 presumably due to prior spinal cord t rauma and paralysis. FLUOROSCOPIC TIME: 1min [id number] # of spot films: 0 FL/FL fluoroscopy [id number] IMPRESSION: Attempted lumbar puncture L2-L3. No significant CSF obtained for analysis.
--- NOTE | 2022-08-20 13:23 | USCV_ITS ---
Nikko Aparicio Age: 36 Gender: M : 1985 Exam Date: 08/20/2022 14:42 Ordering Phys: Abigail Aguiar MD Technologist: PAUL Exam [place] [facility] [place]ication: RULE OUT HEART FAILURE BP: 117 / 70 HR: 66 Rhythm: Sinus Technical Quality: Adequate MEASUREMENTS (Male / Female) Normal Values 2D ECHO LVOT Diameter 2.0 cm LV Ejection Fraction MOD 2C 65.5 % LV Ejection Fraction 2C AL 68.6 % LA Diameter 2.9 cm LA Width 3.7 cm LA Height 3.9 cm RA Width 3.5 cm RA Height 4.4 cm Aorta at Sinotubular Diameter 2.8 cm IVC Diameter 1.9 cm M-MODE Aortic Annulus Diameter 3.3 cm LA Ao Ratio MM 0.7 MV E Point Septal Separation 0.7 cm DOPPLER AV Peak Velocity 112.0 cm/s LVOT Peak Velocity 90.0 cm/s AV Area Cont Eq vti 2.9 cm squared AV Area Cont Eq pk 2.5 cm squared MV Peak Velocity 111.0 cm/s MV Area PHT 3.7 cm squared Mitral E to A Ratio 1.1 MV E' Velocity 53.0 cm/s Mitral E to MV E' Ratio 6.6 Mitral E to LV E' Lateral Ratio 5.5 Mitral E to LV E' Septal Ratio 8.5 TR Peak Velocity 153.4 cm/s TR Peak Gradient 9.4 mmHg TR Mean Velocity 151.2 cm/s TR Mean Gradient 9.6 mmHg TR Velocity Time Integral 59.2 cm TV Peak E Velocity 65.0 cm/s Right Atrial Pressure 3.0 mmHg Pulmonary Artery Systolic Pressu 12.4 mmHg PV Peak Velocity 121.0 cm/s RV Acceleration Time 0.2 s RV Ejection Time 0.3 s RV AcT/ET 0.5 FINDINGS Left Ventricle Left ventricle is normal in size. LV systolic function is normal with EF of 55 to 60%. No regional wall motion abnormalities are seen. Diastolic function is normal Right Ventricle Normal in size and function Right Atrium Normal in size Left Atrium Normal in size Mitral Valve Structurally normal mitral valve. Trace mitral regurgitation Aortic Valve Structurally normal aortic valve. No significant stenosis or regurgitation. Tricuspid Valve Mild tricuspid regurgitation. Pulmonary artery systolic pressure is normal Pulmonic Valve Not well visualized. Pericardium Normal Aorta Normal in size IVC Appears to be normal CONCLUSIONS LV systolic unction is normal with EF of 55 to 60% Diastolic function is normal. Trace mitral regurgitation Mild tricuspid regurgitation No comparison studies are available Orlando Henry MD (Electronically Signed) Final Date: 20 August 2022 17:31 S
[2022-08-20] MEDS: FUROsemide 10 mg/mL SDV 2mL 20 MG IVP (13:40)
--- NOTE | 2022-08-20 13:51 | P.PN_ITS ---
Subjective Subjective: seen this am intubated sedation is almost weaned off patient is having muscle spasm of upper extremities and moving his head side to side and at times having chorioform movements. he is thrashing around and we have a fear that ET tube might come out levophed has been off since yesterday propofol is at 14, fentanyl at 50 mics patient's family was here yesterday and were updated today later on in day, patient's emergency contact nathaniel aguirre also came she stated that she last saw him 1 month ago she says he is on keppra, baclofen and has a history of muscle spasms. she saw this muscle spasms and said he does that at home too. She also says that lately he has been having seizures no BM yet. urine output 1000 c Overnight events noted. Spoke with night hospitalist this AM regarding that. Isidro kothari was loaded with keppra and given ativan for a presumed seizure like activity Vitals/I&O/Wt Last Vital Signs Temp 101.1 F H 08/20/22 12:00 Pulse 76 08/20/22 13:00 Resp 17 08/20/22 13:00 BP 147/89 08/20/22 13:00 Pulse Ox 93 08/20/22 13:00 O2 Del Method 08/19/22 14:00 FiO2 40 08/20/22 13:00 08/19/22 08/20/22 08/20/22 22:59 06:59 14:59 Intake Total 749.750 / 1848.704 261.634 / 2110.338 Output Total 1150 / 1150 Balance 749.750 / 1848.704 -888.366 / 960.338 Weight last 48 hrs Weight 89.811 kg Physical Exam Narrative: General: Sedated, intubated. having spastic movements of upper extremities and head movements, very rhythmic in nature HEENT: Normocephalic, Atraumatic. Nasal passages patent without drainage. MMM. Anisocoria noted. PERRLA. pupils do react Heart: RRR. Normal S1-S2 Resp: LCTA with diminished at bases.No respiratory distress, no use of accessory muscles. Transmitted breath sounds through the vent. Minimal vent settings Abd: Soft, non-tender. Non-distended. Extremities: No edema. Neuro: Paraplegic, spastic LE's. Examined sacral ischial ulcer with the surgeon. No fluctuance noted. No drainage no erythema. Urinary Catheter Management: Peña: Cath Placed During This Visit: yes Reason for Continuing Indwelling Catheter: Accurate Measurement of Urinary Output in Critically Ill Patients Urinary Catheter Date of Insertion: 08/16/22 Urinary Catheter Time of Insertion: 09:56 Data 08/20/22 03:45 08/20/22 03:45 Micro: Microbiology 08/16/22 06:20 Blood Culture - Final Blood Escherichia coli 08/16/22 06:32 Blood Culture - Final Blood Escherichia coli 08/17/22 11:20 Gram Stain - Final Sputum - Endotracheal Tube Aspirate Sputum Culture - Final A&P Assessment and plan (1) Positive urine drug screen: (2) Sepsis: Qualifiers: Sepsis acute organ dysfunction status: with acute organ dysfunction Sepsis type: sepsis due to unspecified organism Severe sepsis acute organ dysfunction type: disseminated intravascular coagulopathy (3) Acute renal failure (ARF): (4) Acute urinary obstruction: (5) DM type 2 (diabetes mellitus, type 2): (6) Hyperkalemia: (7) Neurogenic bladder: (8) Chronic indwelling Peña catheter: (9) HTN (hypertension): (10) Tobacco abuse: (11) Paraplegia: (12) GERD (gastroesophageal reflux disease): (13) Hypocalcemia: (14) Hypoalbuminemia: (15) Hypokalemia: (16) Anxiety: (17) Acute renal failure: Plan #Sepsis secondary to gram-negative bacteremia #UTI #Indwelling catheter secondary to neurogenic bladder #Positive blood cultures with gram-negative bacteria, E. coli #Paraplegic #Former alcohol abuse. Quit 4 months ago as per roommate. #Hypertension #Stage IV ischial wound #Acute renal failure to post renal cause #Thrombocytopenia #Hypokalemia potassium 3.3 #Hypocalcemia #Hypoalbuminemia #Seizures #Mild rhabdomyolysis ? Continue to wean off sedation. ? On minimal vent settings. We will attempt for sedation vacation in a.m. and do a pressure support trial if patient to tolerate. ? Check LP. Talked with radiology. They will do LP. - Switch from zosyn to meropenem 2 g q8H for coverage of meningitis. Pt has hives with cephalosporins. Continue vancomycin. Vanc level high today. Will have adjustment of dosage. - Pt may be withdrawing from baclofen. Will order for home dose 60 mg BID. - I will restart gabapentin at 600 mg BID (home dose is 900 BID). There may be a withdrawal component of that as well. ? Continue D5 NS ? Admission blood cultures 4 out of 4 bottles positive for E. coli. Repeat cultures from 08/18 negative to date. ? Sliding scale insulin for diabetes however has been low therefore not requiring any coverage. Check BG q6 hours. - Pt loaded with keppra overnight. Will restart keppra at 500 mg BID. ? Continue duloxetine. ? Protonix 40 p.o. daily - Family brought home meds. Med rec done by shift superintendent RN. ? Hold off on spironolactone, hydrochlorothiazide ? Urine output is good in last 24 hours. Creatinine is improved to 2.1. ? Hypokalemia this AM. Repleted. ? Calcium is 7 however albumin is 2.5. Corrected calcium is normal. - CT head negative for acute pathology ? Attempt to wean off sedation and try pressure support trial in a.m - Neurology consulted. Appreciate recommedations. Pt will need an EEG but cannot tolerate being off sedation at this time. - Will attempt for EEG once he is more calm. Will restart gabapentin, home dose baclofen and see response. - May try zyprexa if needed. - Avoid versed drip. - Ativan to be given if witnessed seizure activity. - Talked with radiology. They were unable to obtain LP CSF due to thecal sack being really thinned out. - Will tx for meningitis empirically. - CPK at 500. Mild rhabdomyolysis. POssibly due to seizure activity vs muscle spasm activity. Will continue IV fluids - Consulted paper goods machine set up operator. Start low rate tube feeds. Continue thimaine 100 mg daily. - Recheck CMP, P, Mg at 6 pm. Watch for reefeeding syndrome - He has a mixed HAGMA and NAGMA. - Check Chest xray in AM - Check ABG in AM - Goal is to ultimately wean from ventilator. - Check cardiac echo, rule out endocarditis. - Consult nephrology. Full code DVT prophylaxis: SCDs for now. We will hold Lovenox due to platelets being low. Decision making: Patient has a son 17 years old. Ex father in law, ex and a friend who have visited so far. No one is officially a DPOA. Family discussing amongst themselves as to who to appoint for decision making. Will find out if parents are alive or if he has any siblings. Patient's life partner who is not with anymore was listed as emergency contact. Attestations Medical Necessity Statement*: Continue critical level care in ICU Coding Level of Care Code Critical Care >/= 30 minutes Critical care time (in minutes): 90 (Patient was seen several times today. Talked with radiology, neurology, pt friend, RN multiple times today.) The high probability of a clinically significant, sudden or life threatening deterioration, as referenced in this documentation, required my full and direct attention, intervention and personal management. The critical care time shown is in addition to time spent performing any reported separately billable procedures and includes the following: [x] Data and vital sign review and interpretation [x ] Patient assessment, examination and intervention [x] Medication orders and management [x] Patient/Family updates as able [x] Care Coordination and Do cumentation. Other Coding Information Focused coding review requested Diagnoses Positive urine drug screen R82.5 Sepsis A41.9 Sepsis acute organ dysfunction status: with acute organ dysfunction Sepsis type: sepsis due to unspecified organism Severe sepsis acute organ dysfunction type: disseminated intravascular coagulopathy Acute renal failure (ARF) N17.9 Acute urinary obstruction N13.9 DM type 2 (diabetes mellitus, type 2) E11.9 Hyperkalemia E87.5 Neurogenic bladder N31.9 Chronic indwelling Peña catheter Z97.8 HTN (hypertension) I10 Tobacco abuse Z72.0 Paraplegia G82.20 GERD (gastroesophageal reflux disease) K21.9 Hypocalcemia E83.51 Hypoalbuminemia E88.09 Hypokalemia E87.6 Anxiety F41.9 Acute renal failure N17.9
[2022-08-20] MEDS: propofol 1,000 MG/100 ML INJ 29.39 MG IV ×2 (14:48→17:31)
[2022-08-20 16:50] LABS: Glucose Point of Care 116 mg/dL (70-110)
[2022-08-20] MEDS: meropenem 2,000 MG in sodium chloride 0.9% (100 ml) 100 ML 200 MG IV (16:52)
--- NOTE | 2022-08-20 17:02 | P.CONIM_ITS ---
Providers/Reason For Consult Consulting Physician/Specialty*: [facility] /Nephrology Reason for Consult*: STEFANI , Metabolic acidosis , Hy[pokalemia , Rhabdo Attending Physician: Abigail Aguiar MD Primary Care Provider: Broderick Pope MD History of Present Illness History of Present Illness Nikko Aparicio is a 36 year old paraplegic,with indwelling Peña catheter, hypertension, stage IV ischial ulcers, presented to the emergency department complaining of not feeling well and having fevers. Also reported confusion body aches and diarrhea. In the emergency department he was febrile with temperature of 100.8, tachycardic blood pressures in the 1 teens. Labs significant for hyponatremia with sodium of 126 and creatinine of 3.8. His baseline creatinine was 0.7 last in February 2022. Urine drug screen was positive for opiates benzos and marijuana. Chest x-ray showed decreased lung volumes. Urine analysis showed 2+ protein 3+ blood positive leukocyte esterase . CPK was elevated in the 500s range. Has low albumin of 2.3. Creatinine has improved to 2.1 currently. pt currently intubated. Review of Systems Narrative: cannnot aobtain 98 Medications/Allergies Home Medications Medication Instructions Recorded Confirmed Last Taken Type aspirin-caffeine 845 mg-65 mg oral 1 ea PO Q6H PRN Pain 03/04/20 08/16/22 04/05/20 History powder packet (BC Pain Relief) gabapentin 300 mg capsule 900 mg PO BID #180 caps 08/01/20 08/16/22 Unknown Rx zolpidem 5 mg tablet (Ambien) 5 mg PO BEDTIME #30 tabs 06/17/21 08/16/22 Unknown Rx levetiracetam 500 mg See Rx Instructions .Route 09/03/21 08/19/22 Unknown Rx tablet,extended release 24 hr .COMPLEX #60 tabs trazodone 150 mg tablet 150 mg PO .qhs #90 tabs 09/23/21 08/19/22 Unknown Rx pantoprazole 40 mg tablet,delayed 40 mg PO DAILY #90 tabs 12/19/21 08/19/22 Unknown Rx release (Protonix) alprazolam 0.5 mg tablet 0.5 mg PO DAILY #30 tabs 02/26/22 08/16/22 Unknown Rx glimepiride 4 mg tablet (Amaryl) 4 mg PO BID #180 tabs 02/26/22 08/19/22 Unknown Rx bisacodyl 10 mg rectal suppository 10 mg VA DAILY PRN constipation 03/31/22 08/16/22 Unknown Rx #12 ea duloxetine 30 mg capsule,delayed See Rx Instructions .Route 03/31/22 08/19/22 Unknown Rx release .COMPLEX #90 caps ondansetron HCl 4 mg tablet See Rx Instructions .Route 03/31/22 08/16/22 Unknown Rx .COMPLEX #30 tabs spironolactone 25 1 tab PO DAILY #90 tabs 03/31/22 08/19/22 Unknown Rx mg-hydrochlorothiazide 25 mg tablet (Aldactazide) baclofen 20 mg tablet 60 mg PO BID #180 tabs 04/03/22 08/19/22 Unknown Rx duloxetine 60 mg capsule,delayed 60 mg PO DAILY #90 caps 04/03/22 08/19/22 Unknown Rx release varenicline 1 mg tablet 1 mg PO BID #180 tabs 04/21/22 08/19/22 Unknown Rx hydrocodone 5 mg-acetaminophen 325 1 tab PO BID PRN pain 1 month #14 05/01/22 08/16/22 Unknown Rx mg tablet tabs bisacodyl 10 mg rectal suppository 10 mg VA DAILY PRN Constipation 08/16/22 08/16/22 Unknown History Allergies Allergy/AdvReac Type Severity Reaction Status Date / Time ceftriaxone [From Rocephin] Allergy ALGY-Hives Verified 04/03/22 14:39 levofloxacin [From Levaquin] Allergy Unknown Verified 04/03/22 14:39 Current Medications Generic Name Dose Route Start Last Admin Trade Name Freq PRN Reason Stop Dose Admin Acetaminophen 650 mg 08/17/22 17:35 08/17/22 17:58 Acetaminophen 325 Mg Tablet PO 650 mg Q6H PRN Administration FEVER Chlorhexidine Gluconate 1 applic 08/20/22 00:19 08/20/22 01:56 Chlorhexidine Gluconate 4% Btl 118 Ml TOPICAL 1 applic DAILY PRN Administration Use w/ Bed bath Duloxetine HCl 60 mg 08/19/22 09:00 08/20/22 08:03 Duloxetine 60 Mg Capsule PO 60 mg DAILY CASEY Administration Vancomycin HCl 1,000 mg/ 250 mls @ 250 mls/hr 08/16/22 17:30 08/19/22 19:32 Sodium Chloride IV Infused Q24H CASEY Infusion Protocol Propofol 1,000 mg in 100 mls @ 0 mls/hr 08/17/22 04:30 08/20/22 14:48 Diprivan IV 60 mcg/kg/min .Q0M CASEY 29.39 mls/hr Administration Protocol Per Protocol Fentanyl 2,500 mcg/ Sodium 250 mls @ 0 mls/hr 08/17/22 04:30 08/19/22 19:10 Chloride IV 50 mcg/hr .Q0M CASEY 5 mls/hr Titration Protocol Per Protocol Midazolam HCl 100 mg/ Sodium 100 mls @ 0 mls/hr 08/17/22 05:30 08/19/22 22:58 Chloride IV Infused .Q0M CASEY Titration Protocol Per Protocol Norepinephrine Bitartrate 4 mg 254 mls @ 0 mls/hr 08/18/22 01:15 08/19/22 04:24 / Dextrose IV 0 mcg/min .Q0M CASEY 0 mls/hr Titration Protocol Per Protocol Dextrose/Sodium Chloride 1,000 mls @ 75 mls/hr 08/19/22 19:00 08/20/22 09:46 Dextrose 5%-Sod Chloride 0.45% IV Not Given .[id number] CASEY Meropenem 2,000 mg/ Sodium 100 mls @ 200 mls/hr 08/20/22 15:00 08/20/22 16:52 Chloride IV 200 mls/hr Q8H CASEY Administration Protocol Lorazepam 1 mg 08/16/22 16:59 08/20/22 03:13 Lorazepam 2 Mg/Ml Inj 1 Ml IVP 1 mg Q8H PRN Administration ANXIETY Morphine Sulfate 4 mg 08/16/22 16:58 08/17/22 03:59 Morphine 4 Mg/Ml Sdv 1 Ml IVP 4 mg Q4H PRN Administration SEVERE PAIN Pantoprazole Sodium 40 mg 08/16/22 09:00 08/20/22 08:[address] 40 Mg Tablet PO 40 mg DAILY CASEY Administration Thiamine HCl 100 mg 08/20/22 09:00 08/20/22 08:04 Thiamine 100 Mg/Ml Sdv IVP 100 mg DAILY CASEY Administration PFSH Acute PFSH: Medical History (Updated 08/20/22 @ 12:57 by Irma Ledbetter MD) Basal cell carcinoma HTN (hypertension) Paraplegia 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 UTI (urinary tract infection) Wound abscess Surgical History Hx of cholecystectomy Previous back surgery S/P ankle ligament repair Family History Mother , at age 60 Chronic kidney disease (CKD) Father , at age 71 Natural with unknown cause Other Anemia CAD (coronary artery disease) Diabetes Hypertension Social History Smoking and tobacco status: current every day smoker Alcohol intake: current Alcohol intake frequency: holidays/special occasions only Marital status: Current occupational status: disabled Vitals/I&O/Wt Last Vital Signs Temp 99.9 F H 08/20/22 14:56 Pulse 68 08/20/22 14:00 Resp 17 08/20/22 13:00 BP 125/73 08/20/22 14:00 Pulse Ox 93 08/20/22 14:00 O2 Del Method 08/19/22 14:00 FiO2 40 08/20/22 13:00 08/20/22 08/20/22 08/20/22 06:59 14:59 22:59 Intake Total 261.634 / 2110.338 79.991 / 79.991 Output Total 1150 / 1150 2200 / 2200 Balance -888.366 / 960.338 79.991 / 79.991 -2200 / -2120.009 Weight last 48 hrs Weight 89.811 kg Physical Exam Narrative: intubated , sedated Urinary Catheter Management: Peña: Cath Placed During This Visit: yes Reason for Continuing Indwelling Catheter: Accurate Measurement of Urinary Out put in Critically Ill Patients Urinary Catheter Date of Insertion: 08/16/22 Urinary Catheter Time of Insertion: 09:56 Data 08/20/22 03:45 08/20/22 03:45 Micro: Microbiology 08/16/22 06:20 Blood Culture - Final Blood Escherichia coli 08/16/22 06:32 Blood Culture - Final Blood Escherichia coli A&P Assessment and plan (1) Acute renal failure (ARF): Plan 1. Kidney injury: Baseline creatinine was 0.7 few months ago. Now presented with a creatinine of 3.8 currently at 2.1. STEFANI multifactorial secondary to sepsis, possibly developed ATN. Mild rhabdo noted. Continue to monitor renal function closely. No indication for dialysis -We will start bicarbonate drip at 75 cc an hour, avoid nephrotoxins, keep Vanco level between 15-20. Avoid IV contrast studies. 2. Metabolic acidosis: We will place on bicarbonate drip as above, monitor 3. Hypokalemia: Potassium 3.3, repleted 4. Acute respiratory failure: Intubated, patient neurologically not responding appropriately after sedation weaned off, neurology following, plan for LP 5. Toxic metabolic encephalopathy 6. History of paraplegia, indwelling Peña catheter, ischemic ulcers 7. Sepsis with gram-negative bacteremia #Patient evaluated using audiovisual cart. Time spent 40 minutes. Consult Attestations Medical Necessity Statement: With profound alteration of mental status and multisystem failure needs ICU stay and currently elevated Coding Level of Care Code Acute Code for Chg Fwd Diagnoses Acute renal failure (ARF) N17.9
[2022-08-20] MEDS: gabapentin 300 mg Capsule 600 MG PO (17:56)
[2022-08-20] MEDS: baclofen 10 mg Tablet 60 MG PO (17:56)
[2022-08-20] MEDS: albumin 25 G/100 ML BAG 60 G IV (17:56)
[2022-08-20] MEDS: levETIRAcetam 500 mg Tablet PO (17:57)
[2022-08-20 18:10] LABS: Alanine Aminotransferase 21 U/L (0-41); Albumin Level 2.1 g/dL (3.5-5.2); Alkaline Phosphatase 94 U/L (40-130); Anion Gap 19.3 (5-19); Aspartate Amino Transferase 24 U/L (0-40); Blood Urea Nitrogen 28 mg/dL (6-20); Calcium 7.9 mg/dL (8.5-10.5); Carbon Dioxide 16 mmol/L (22-29); Chloride 113 mmol/L (98-107); Globulin 3.6 g/dL (1.3-4.6); Glomerular Filtration Rate 40.1 mL/min (90-130); Glucose 124 mg/dL (65-115); Magnesium 1.9 mg/dL (1.7-2.3); Osmolality Calculated 307 mOsm/kg (285-295); Phosphorus 5.1 mg/dL (2.5-4.5); Potassium 3.3 mmol/L (3.5-5.1); Sodium 145 mmol/L (136-145); Total Bilirubin 0.4 mg/dL (0.15-1.2); Total Protein 5.7 g/dL (6.6-8.7)
[2022-08-20 18:12] LABS: Vancomycin Trough 16.8 ug/mL (10-15)
[2022-08-20 18:17] LABS: Procalcitonin 4.79 ng/mL (0-0.5)
[2022-08-20] MEDS: vancomycin 1,000 MG in sodium chloride 0.9% 250 ML 250 MG IV (18:28)
[2022-08-20] MEDS: sodium bicarbonate 150 MEQ in dextrose 5% 1,000 ML 100 MEQ IV (18:42)
--- NOTE | 2022-08-20 20:04 | PM.TDS ---
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 mls @ as directed .ROUTE .[facility] ONE Stop: 08/17/22 04:11 Propofol (Diprivan) Confirm Administered Dose 1,000 mg in 100 mls @ as directed .ROUTE .[facility] ONE Stop: 08/17/22 04:25 Sodium Chloride (Sodium Chloride 0.9%) 1,000 mls @ 100 mls/hr IV .Q10H CASEY Last Admin: 08/17/22 20:38 Dose: Not Given Lactated Ringer's (Lactated Ringers) 1,000 mls @ 100 mls/hr IV .Q10H CASEY Last Infusion: 08/17/22 11:13 Dose: Infused Potassium Chloride (K-Lambert) 100 mls @ 25 mls/hr IV ONCE ONE Stop: 08/17/22 14:49 Last Infusion: 08/17/22 15:02 Dose: Infused Dextrose/Sodium Chloride (Dextrose 5%-Sod Chloride 0.9%) 1,000 mls @ 100 mls/hr IV .Q10H CASEY Last Infusion: 08/19/22 20:44 Dose: 0 mls/hr Potassium Chloride (K-Lambert Premix) 100 mls @ 50 mls/hr IV ONCE ONE Stop: 08/18/22 10:25 Last Infusion: 08/18/22 11:37 Dose: Infused Potassium Chloride (K-Lambert) 100 mls @ 25 mls/hr IV ONCE ONE Stop: 08/19/22 10:55 Last Infusion: 08/19/22 11:57 Dose: Infused Dextrose/Sodium Chloride (Dextrose 5%-Sod Chloride 0.45%) 1,000 mls @ 75 mls/hr IV .[id number] CASEY Last Admin: 08/20/22 09:46 Dose: Not Given Levetiracetam 1,000 mg/ Sodium (Chloride) 110 mls @ 440 mls/hr IV ONCE ONE Stop: 08/20/22 03:44 Last Infusion: 08/20/22 04:10 Dose: Infused Lorazepam (Lorazepam 2 Mg/Ml Inj 1 Ml) 1 mg IVP NOW ONE Stop: 08/16/22 07:55 Last Admin: 08/16/22 08:00 Dose: 1 mg Lorazepam (Lorazepam 2 Mg/Ml Inj 1 Ml) 2 mg IVP NOW ONE Stop: 08/16/22 22:22 Last Admin: 08/16/22 21:53 Dose: 2 mg Lorazepam (Lorazepam 2 Mg/Ml Inj 1 Ml) 1 mg IVP NOW ONE Stop: 08/20/22 10:08 Last Admin: 08/20/22 10:19 Dose: 1 mg Morphine Sulfate (Morphine 4 Mg/Ml Sdv 1 Ml) 4 mg IVP ONCE ONE Stop: 08/16/22 09:00 Last Admin: 08/16/22 09:08 Dose: 4 mg Morphine Sulfate (Morphine 4 Mg/Ml Sdv 1 Ml) 4 mg IVP ONCE ONE Stop: 08/16/22 15:10 Last Admin: 08/16/22 15:17 Dose: 4 mg Olanzapine (Olanzapine 5 Mg Tablet) 5 mg PO NOW ONE Stop: 08/20/22 13:31 Last Admin: 08/20/22 13:39 Dose: Not Given Ondansetron HCl (Ondansetron 2 Mg/Ml Sdv 2 Ml) 4 mg IVP ONCE ONE Stop: 08/16/22 06:34 Last Admin: 08/16/22 07:26 Dose: 4 mg Potassium Chloride (Potassium Chloride Oral Liq 20 Meq/15 Ml Udc) 20 meq PO ONCE ONE Stop: 08/20/22 10:01 Last Admin: 08/20/22 10:04 Dose: 20 meq Sodium Bicarbonate (Sodium Bicarbonate 650 Mg Tablet) 650 mg PO TID CASEY Last Admin: 08/17/22 21:00 Dose: 650 mg Succinylcholine Chloride (Succinylcholine 20 Mg/Ml Sdv 10ml) 122.4705 mg 1.5 mg/kg (122.4705 mg) IV ONCE ONE Stop: 08/17/22 04:00 Last Admin: 08/17/22 04:31 Dose: 122.4705 mg Succinylcholine Chloride (Succinylcholine 20 Mg/Ml Sdv 10ml) Confirm Administered Dose 200 mg .ROUTE .[facility] ONE Stop: 08/17/22 04:05 Succinylcholine Chloride (Succinylcholine 20 Mg/Ml Sdv 10ml) 100 mg IVP NOW ONE Stop: 08/17/22 04:42 Last Admin: 08/17/22 04:41 Dose: 100 mg Allergies ceftriaxone [From Rocephin] Allergy (Verified 04/03/22 14:39) ALGY-Hives levofloxacin [From Levaquin] Allergy (Verified 04/03/22 14:39) Unknown Home Medications aspirin-caffeine 845 mg-65 mg oral powder packet ( Pain Relief) 1 ea PO Q6H PRN Pain 03/04/20 [History Confirmed 08/16/22] gabapentin 300 mg capsule 900 mg PO BID #180 caps 08/01/20 [Rx Confirmed 08/16/22] zolpidem 5 mg tablet (Ambien) 5 mg PO BEDTIME #30 tabs 06/17/21 [Rx Confirmed 08/16/22] levetiracetam 500 mg tablet,extended release 24 hr See Rx Instructions .Route .COMPLEX #60 tabs 09/03/21 [Rx Confirmed 08/19/22] trazodone 150 mg tablet 150 mg PO .qhs #90 tabs 09/23/21 [Rx Confirmed 08/19/22] pantoprazole 40 mg tablet,delayed release (Protonix) 40 mg PO DAILY #90 tabs 12/19/21 [Rx Confirmed 08/19/22] alprazolam 0.5 mg tablet 0.5 mg PO DAILY #30 tabs 02/26/22 [Rx Confirmed 08/16/22] glimepiride 4 mg tablet (Amaryl) 4 mg PO BID #180 tabs 02/26/22 [Rx Confirmed 08/19/22] bisacodyl 10 mg rectal suppository 10 mg VT DAILY PRN constipation #12 ea 03/31/22 [Rx Confirmed 08/16/22] duloxetine 30 mg capsule,delayed release See Rx Instructions .Route .COMPLEX #90 caps 03/31/22 [Rx Confirmed 08/19/22] ondansetron HCl 4 mg tablet See Rx Instructions .Route .COMPLEX #30 tabs 03/31/22 [Rx Confirmed 08/16/22] spironolactone 25 mg-hydrochlorothiazide 25 mg tablet (Aldactazide) 1 tab PO DAILY #90 tabs 03/31/22 [Rx Confirmed 08/19/22] baclofen 20 mg tablet 60 mg PO BID #180 tabs 04/03/22 [Rx Confirmed 08/19/22] duloxetine 60 mg capsule,delayed release 60 mg PO DAILY #90 caps 04/03/22 [Rx Confirmed 08/19/22] varenicline 1 mg tablet 1 mg PO BID #180 tabs 04/21/22 [Rx Confirmed 08/19/22] hydrocodone 5 mg-acetaminophen 325 mg tablet 1 tab PO BID PRN pain 1 month #14 tabs 05/01/22 [Rx Confirmed 08/16/22] bisacodyl 10 mg rectal suppository 10 mg VT DAILY PRN Constipation 08/16/22 [History Confirmed 08/16/22] Discharge Plan Discharge Patient Disposition: Home Condition: Stable Prescriptions: No Action duloxetine 60 mg capsule,delayed release(DR/EC) 60 mg PO DAILY Qty: 90 3RF baclofen 20 mg tablet 60 mg PO BID Qty: 180 12RF glimepiride [Amaryl] 4 mg tablet 4 mg PO BID Qty: 180 3RF Rx Instructions: administer with breakfast alprazolam 0.5 mg tablet 0.5 mg PO DAILY Qty: 30 5RF gabapentin 300 mg capsule 900 mg PO BID Qty: 180 1RF zolpidem [Ambien] 5 mg tablet 5 mg PO BEDTIME Qty: 30 1RF levetiracetam 500 mg tablet extended release 24 hr See Rx Instructions .ROUTE .COMPLEX Qty: 60 11RF Dose Instruction: TAKE 2 TABLETS BY MOUTH DAILY Rx Instructions: TAKE 2 TABLETS BY MOUTH DAILY trazodone 150 mg tablet 150 mg PO .qhs Qty: 90 3RF pantoprazole [Protonix] 40 mg tablet,delayed release (DR/EC) 40 mg PO DAILY Qty: 90 3RF ondansetron HCl 4 mg tablet See Rx Instructions .ROUTE .COMPLEX Qty: 30 0RF Dose Instruction: TAKE 1 TABLET BY MOUTH EVERY 6 HOURS Rx Instructions: TAKE 1 TABLET BY MOUTH EVERY 6 HOURS duloxetine 30 mg capsule,delayed release(DR/EC) See Rx Instructions .ROUTE .COMPLEX Qty: 90 1RF Dose Instruction: TAKE 1 CAPSULE BY MOUTH EVERYDAY AT BEDTIME Rx Instructions: TAKE 1 CAPSULE BY MOUTH EVERYDAY AT BEDTIME spironolacton-hydrochlorothiaz [Aldactazide] 25-25 mg tablet 1 tab PO DAILY Qty: 90 3RF bisacodyl 10 mg suppository 10 mg VT DAILY PRN (Reason: constipation) Qty: 12 3RF varenicline 1 mg tablet 1 mg PO BID Qty: 180 8RF hydrocodone-acetaminophen 5-325 mg tablet 1 tab PO BID PRN (Reason: pain) 30 Days Qty: 14 0RF BC Pain Relief 845-65 mg Powder In Packet 1 ea PO Q6H PRN (Reason: Pain) bisacodyl 10 mg Suppository 10 mg VT DAILY PRN (Reason: Constipation) Referrals: Broderick Pope MD [Primary Care Provider] - Discharge Diet: Advance as tolerated Patient Instructions: Opioid Safety Transfer Attestations Time Spent in Transfer Care: greater than 30 min Quality Metrics Clinical Quality Measures [ No reported AMI, CVA or VTE this stay] Coding Level of Care Code 96407 Total time (in minutes) for Discharge: 60 Diagnoses Acute renal failure (ARF) N17.9
[2022-08-20 20:12] LABS: SARS Covid-2 Antigen negative (Negative)
--- NOTE | 2022-08-20 23:44 | PC.NURSE ---
Patient went to [facility] via [facility]. Belongings to be picked up by family in am.
--- NOTE | 2022-09-08 18:59 | PC.NURSE ---
Pt home meds Pt's girlfriend Julia picked up pt's home medication that had been kept in house super's office.
== END 2022-08-20 22:48 | disposition short-term general hospital (02) | DRG 698 ==
LOC: ER 08:12 → ICU 08:34
PROVIDERS: Internal Medicine; Admitting Provider Family Medicine; Emergency Provider Emergency Medicine; PCP Internal Medicine; Visit Provider Internal Medicine
DX: T83.511A Infection and inflammatory reaction due to indwelling urethral catheter, initial encounter (principal); A41.51 Sepsis due to Escherichia coli [E. coli]; G92.8 Other toxic encephalopathy; L89.324 Pressure ulcer of left buttock, stage 4; J96.00 Acute respiratory failure, unspecified whether with hypoxia or hypercapnia; R65.20 Severe sepsis without septic shock; N17.9 Acute kidney failure, unspecified; G82.20 Paraplegia, unspecified; E87.1 Hypo-osmolality and hyponatremia; F19.231 Other psychoactive substance dependence with withdrawal delirium; M62.82 Rhabdomyolysis; N39.0 Urinary tract infection, site not specified; T83.091A Other mechanical complication of indwelling urethral catheter, initial encounter; Y73.1 Therapeutic (nonsurgical) and rehabilitative gastroenterology and urology devices associated with adverse incidents; T14.8XXS Other injury of unspecified body region, sequela; V89.2XXS Person injured in unspecified motor-vehicle accident, traffic, sequela; F17.200 Nicotine dependence, unspecified, uncomplicated; R11.0 Nausea; N31.9 Neuromuscular dysfunction of bladder, unspecified; I10 Essential (primary) hypertension; F41.9 Anxiety disorder, unspecified; F10.11 Alcohol abuse, in remission; D69.6 Thrombocytopenia, unspecified; E87.6 Hypokalemia; E83.51 Hypocalcemia; E88.09 Other disorders of plasma-protein metabolism, not elsewhere classified; R56.9 Unspecified convulsions
CPT/HCPCS: 12345; 36415; 36416; 36592; 36600; 51702; 70450; 71045; 76000; 80048; 80051; 80053; 80202; 80306; 81001; 82330; 82550; 82803; 82805; 82962; 83605; 83735; 84100; 84145; 84484; 85007; 85025; 87040; 87070; 87077; 87086; 87150; 87186; 87205; 87426; 87804; 93005; 93306; 94002; 94003; 94664; 94799; 96365; 96372; 96375; 99285; A4570; J0330; J1650; J1940; J1953; J2060; J2185; J2250; J2270; J2405; J2543; J2704; J3010; J3370; J3411; J3480; J3490; J7030; J7042; J7050; J7060; J7070; J7120; J7799; P9046; Q3014

== ENCOUNTER → 2022-09-15 16:01 | Outpatient (BNVA) | payer MEDICARE, MEDICAID, SELFPAY | PROVIDERS: PCP Internal Medicine; Visit Provider Thoracic Surgery (Cardiothoracic Vascular Surgery) | DX: I96 Gangrene, not elsewhere classified (principal); L89.322 Pressure ulcer of left buttock, stage 2 | CPT/HCPCS: 11042; A6210 ==

== ENCOUNTER 2022-09-19 16:38 | Inpatient (IN) | payer MEDICARE, MEDICAID, SELFPAY ==
[2022-09-19] VITALS (27 sets, daily range): BP systolic 87–135; BP diastolic 57–108; PULSE 66–132; RESP 12–35; TEMP 37.1–37.2; O2SAT 95–100; BMI 26.7
--- NOTE | 2022-09-19 16:52 | CTR_ITS ---
PROCEDURE INFORMATION: Exam: CT Abdomen And Pelvis Without Contrast Exam date and time: 09/19/2022 5:40 PM Age: 36 years old Clinical indication: Abdominal pain; Generalized TECHNIQUE: Imaging protocol: Computed tomography of the abdomen and pelvis without contrast. Radiation optimization: All CT scans at this facility use at least one of these dose optimization techniques: automated exposure control; mA and/or kV adjustment per patient size (includes targeted exams where dose is matched to clinical indication); or iterative reconstruction. REPORTING DATA: Count of CT and Cardiac NM exams in prior 12 months: This patient has received [address] and 0 known cardiac nuclear medicine studies in the 12 months prior to the current study. COMPARISON: CT abdomen pelvis w con* [id number] 04/05/2020 6:40 PM RADIATION DOSE METRICS: Total DLP (mGy-cm): 978.63 FINDINGS: Limitations: The absence of intravenous contrast lessens the sensitivity of this study for solid organ abnormalities. Study somewhat limited due to streak artifact created by the patient being scanned with the arms at the sides. Lungs: Lung bases are clear. Liver: There is no focal abnormality within the liver. Gallbladder and bile ducts: There has been a cholecystectomy. Pancreas: The pancreas is normal. Spleen: The spleen is normal. Adrenal glands: The adrenal glands are normal. Kidneys and ureters: There is moderate hydronephrosis. There is hydroureter. There is no evidence of renal or ureteral calcifications. There is no focal abnormality in either kidney. Stomach and bowel: There is moderate thickening of the rectum and some stranding in the perirectal fat which may represent proctitis. There is no evidence of diverticulitis. There is no evidence of intestinal obstruction. Appendix: A normal appendix is identified. Intraperitoneal space: There is no evidence of free intraperitoneal fluid. There is no evidence of free intraperitoneal fluid. Vasculature: An inferior vena cava filter lies in appropriate position. There is no evidence of an abdominal aortic aneurysm. Lymph nodes: There are small periaortic lymph nodes and mildly prominent inguinal lymph nodes not significantly changed but no adenopathy. Urinary bladder: There is a Peña catheter within the urinary bladder. There is moderate thickening of the urinary bladder wall. Due to nondistention of the urinary bladder is difficult to compare with the previous examination but there is some haziness around the urinary bladder. Please correlate for any clinical signs or symptoms of urinary tract infection. Some air within the urinary bladder is likely due to placement of Peña catheter. Reproductive: Unremarkable as visualized. Bones/joints: There are extensive postsurgical changes upper lumbar and lower thoracic spine with posterior spinal fusion using metallic hardware not significantly changed compared with 04/05/2020. Soft tissues: There is chronic appearing decubitus ulcer in the left buttock region extending to the left ischial tuberosity where there is sclerosis and soft tissue bone formation which is not changed from 04/05/2020. These findings appear chronic and stable compared with 04/05/2020. Please correlate with the patient's treatment history. There is no new destructive change to suggest active osteomyelitis, however osteomyelitis is not excluded. CT/CT abdomen pelvis wo con [id number] IMPRESSION: 1. Chronic left decubitus ulcer and findings of chronic osteomyelitis not significantly changed. 2. Bladder wall thickening which could be due to infection or neurogenic bladder. Stranding in the adjacent fat suggests possible urinary tract infection 3. Bilateral hydronephrosis and hydroureter new from the previous examination 4. Findings worrisome for proctitis. 5. Stable appearance of T11 fracture and thoracolumbar spinal fusion. COMMENTS: For patients with an IVC filter, recommend assessment for a management plan for the patient's IVC filter. If there is no established management plan, recommend referral to an interventional clinician on a nonemergent basis for evaluation.
--- NOTE | 2022-09-19 16:52 | XRR_ITS ---
PROCEDURE INFORMATION: Exam: XR Chest Exam date and time: 09/19/2022 5:46 PM Age: 36 years old Clinical indication: Other: Possible sepsis; Additional info: Renal failure, possible sepsis TECHNIQUE: Imaging protocol: Radiologic exam of the chest. Views: 1 view. COMPARISON: CR (CHEST, ) 08/20/2022 3:32 AM FINDINGS: Lungs: Visualized portions of the lungs are clear. Pleural spaces: Unremarkable. No pleural effusion. No pneumothorax. Heart/Mediastinum: Heart is within normal limits of size. Bones/joints: Stable postsurgical changes in the thoracolumbar spine. XR/XR chest 1V portable [id number] IMPRESSION: No acute infiltrate.
--- NOTE | 2022-09-19 16:56 | ED_ITS ---
HPI - Altered Mental Status General: Chief Complaint: Altered Mental Status Stated Complaint: AMS Time Seen by Provider: 09/19/22 16:44 [facility] PFSH: Medical History (Updated 08/20/22 @ 12:57 by Irma Ledbetter MD) Basal cell carcinoma HTN (hypertension) Paraplegia 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 UTI (urinary tract infection) Wound abscess Surgical History Hx of cholecystectomy Previous back surgery S/P ankle ligament repair Family History Mother , at age 60 Chronic kidney disease (CKD) Father , at age 71 Natural with unknown cause Other Anemia CAD (coronary artery disease) Diabetes Hypertension Social History Smoking and tobacco status: current every day smoker Alcohol intake: current Alcohol intake frequency: holidays/special occasions only Marital status: Current occupational status: disabled Course Vital Signs: Vital signs: Vital Signs Temperature 98.9 F 09/19/22 16:40 Pulse Rate 109 H 09/19/22 16:40 Respiratory Rate 12 09/19/22 16:40 Blood Pressure 135/84 09/19/22 16:40 Pulse Oximetry 95 09/19/22 16:40 Oxygen Delivery Al thod 09/19/22 16:40 Discharge Plan Discharge Condition: Stable Prescriptions: No Action duloxetine 60 mg capsule,delayed release(DR/EC) 60 mg PO DAILY Qty: 90 3RF baclofen 20 mg tablet 60 mg PO BID Qty: 180 12RF glimepiride [Amaryl] 4 mg tablet 4 mg PO BID Qty: 180 3RF Rx Instructions: administer with breakfast alprazolam 0.5 mg tablet 0.5 mg PO DAILY Qty: 30 5RF gabapentin 300 mg capsule 900 mg PO BID Qty: 180 1RF zolpidem [Ambien] 5 mg tablet 5 mg PO BEDTIME Qty: 30 1RF levetiracetam 500 mg tablet extended release 24 hr See Rx Instructions .ROUTE .COMPLEX Qty: 60 11RF Dose Instruction: TAKE 2 TABLETS BY MOUTH DAILY Rx Instructions: TAKE 2 TABLETS BY MOUTH DAILY trazodone 150 mg tablet 150 mg PO .qhs Qty: 90 3RF pantoprazole [Protonix] 40 mg tablet,delayed release (DR/EC) 40 mg PO DAILY Qty: 90 3RF ondansetron HCl 4 mg tablet See Rx Instructions .ROUTE .COMPLEX Qty: 30 0RF Dose Instruction: TAKE 1 TABLET BY MOUTH EVERY 6 HOURS Rx Instructions: TAKE 1 TABLET BY MOUTH EVERY 6 HOURS duloxetine 30 mg capsule,delayed release(DR/EC) See Rx Instructions .ROUTE .COMPLEX Qty: 90 1RF Dose Instruction: TAKE 1 CAPSULE BY MOUTH EVERYDAY AT BEDTIME Rx Instructions: TAKE 1 CAPSULE BY MOUTH EVERYDAY AT BEDTIME spironolacton-hydrochlorothiaz [Aldactazide] 25-25 mg tablet 1 tab PO DAILY Qty: 90 3RF bisacodyl 10 mg suppository 10 mg [place] DAILY PRN (Reason: constipation) Qty: 12 3RF varenicline 1 mg tablet 1 mg PO BID Qty: 180 8RF hydrocodone-acetaminophen 5-325 mg tablet 1 tab PO BID PRN (Reason: pain) 30 Days Qty: 14 0RF BC Pain Relief 845-65 mg Powder In Packet 1 ea PO Q6H PRN (Reason: Pain) bisacodyl 10 mg Suppository 10 mg VA DAILY PRN (Reason: Constipation) Referrals: Broderick Pope MD [Primary Care Provider] - Coding Level of Care Code ED [facility] for Amarjit Cancino
--- NOTE | 2022-09-19 16:58 | ED_ITS ---
Documented by User: Fermin Kilpatrick DO 09/20/22 09:50 HPI - General Adult General: Chief complaint: Altered Mental Status Stated complaint: AMS Time Seen by Provider: 09/19/22 16:44 Source: patient Mode of arrival: ambulatory History of Present Illness: 36-year-old male who presents to the emergency room with complaint of having had a seizure. Patient has a history of previous traumatic spinal cord injury as a neurogenic bladder. He had not made any urine for at least 3 days. He was combative and they thought he was having a seizure when they first encountered him he was given Ativan he is somewhat sedate when he arrives here his abdomen is quite distended as well. He is not answer cont ributable to his history at this time. Review of Systems General: Reports: ROS unobtainable due to medical condition and ROS unobtainable due to mental status PFSH ED PFSH: Medical History Basal cell carcinoma HTN (hypertension) Paraplegia 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 UTI (urinary tract infection) Wound abscess Surgical History Hx of cholecystectomy Previous back surgery S/P ankle ligament repair Family History Mother , at age 60 Chronic kidney disease (CKD) Father , at age 71 Natural with unknown cause Other Anemia CAD (coronary artery disease) Diabetes Hypertension Social History Smoking and tobacco status: current every day smoker Alcohol intake: current Alcohol intake frequency: holidays/special occasions only Marital status: Current occupational status: disabled Physical Exam HENMT: COMMON NORMALS: normocephalic, atraumatic and hearing grossly normal bilaterally HEAD & SCALP: normocephalic and atraumatic Resp: COMMON NORMALS: normal respiratory effort, No retractions, No use of accessory muscles and clear to auscultation bilaterally AUSCULTATION: clear to auscultation bilaterally Cardio: COMMON NORMALS: regular rate, regular rhythm and No murmurs present (Cardio) RATE: regular rate RHYTHM: regular rhythm GI: COMMON NORMALS: Soft to palpation and No hepatosplenomegaly present AUSCULTATION: Yes normoactive bowel sounds PALPATION: Yes Soft to palpation, No Tenderness to palpation present (GI), No Guarding due to palpation present (GI) and Yes No hepatosplenomegaly present Extremity: COMMON NORMALS: normal to inspection, capillary refill normal, no clubbing, cyanosis or edema, no calf tenderness and no pedal edema Skin: COMMON NORMALS: no rashes or lesions noted GENERAL SKIN EXAM: no rashes or lesions noted Course Vital Signs: Vital signs: Vital Signs Temperature 98.8 F 09/19/22 22:15 Pulse Rate 70 09/20/22 06:00 Respiratory Rate 18 09/20/22 06:00 Blood Pressure 108/82 09/20/22 06:00 Pulse Oximetry 98 09/20/22 06:00 Oxygen Delivery Me thod 09/19/22 22:14 MDM - General Adult Medical Decision Making Patient presents altered mental status with a occluded catheter. He has a history of previous lower spinal cord injury and has neurogenic bladder. He is altered on arrival here there is a report of him having had a seizure. He was r ecently hospitalized with the same presentation there is concern for meningitis. He was transferred and on discharge was started on Keppra. He was given Keppra on arrival here. He is still disoriented. Appears septic on appearance he is a started on initial antibiotics given to fluid sepsis bolus. We are waiting for some of his final labs. Care signed out to Dr. Espino at change of shift. See final notes for diagnosis and disposition. 36-year-old male presenting with fever, altered mental status, and urinary retention. Peña was replaced, with 1200 out immediately. It does appear infec augusta. White blood cell count is 22. However lactic acid is only 1.1. CT shows bladder wall thickening consistent with UTI and some hydronephrosis consistent with his prior urinary outlet obstruction. He does have a chronic left decubitus ulcer with potentially chronic osteomyelitis that has not changed since his prior CT. He has received fluids and antibiotics in the ER. Full sepsis bolus was given. He will need ICU care. Currently his heart rate is 100, blood pressure 100/70, saturation is 98% on room air with respirations of 15. Medical Records I reviewed the patient's medical records. Lab Data I reviewed the patient's lab results. 09/19/22 17:02 09/19/22 17:02 Radiology Impressions Abdomen/Pelvis CT 09/19/22 16:52 IMPRESSION: 1. Chronic left decubitus ulcer and findings of chronic osteomyelitis not significantly changed. 2. Bladder wall thickening which could be due to infection or neurogenic bladder. Stranding in the adjacent fat suggests possible urinary tract infection 3. Bilateral hydronephrosis and hydroureter new from the previous examination 4. Findings worrisome for proctitis. 5. Stable appearance of T11 fracture and thoracolumbar spinal fusion. COMMENTS: For patients with an IVC filter, recommend assessment for a management plan for the patient's IVC filter. If there is no established management plan, recommend referral to an interventional clinician on a nonemergent basis for evaluation. Chest X-Ray 09/19/22 16:52 IMPRESSION: No acute infiltrate. Laboratory Results WBC 22.0 10^3/uL (4.0-10.0) H 09/19/22 17:02 RBC 3.61 10^6/uL (4.1-5.3) L 09/19/22 17:02 Hgb 11.5 g/dL (11.7-16.6) L 09/19/22 17:02 Hct 34.8 % (42.0-52.0) L 09/19/22 17:02 MCV 96.4 fl (80-94) H 09/19/22 17:02 MCH 31.9 pg (28.0-34.0) 09/19/22 17:02 MCHC 33.0 g/dL (30.0-36.0) 09/19/22 17:02 RDW 15.4 % (12.1-15.1) H 09/19/22 17:02 Plt Count 192 10^3/cmm (130-400) 09/19/22 17:02 MPV 9.9 fL (7.4-10.4) 09/19/22 17:02 Neut % (Auto) 90.9 % 09/19/22 17:02 Lymph % (Auto) 2.7 % 09/19/22 17:02 Bullock % (Auto) 5.4 % 09/19/22 17:02 Eos % (Auto) 0.2 % 09/19/22 17:02 Baso % (Auto) 0.2 % 09/19/22 17:02 Neut # (Auto) 19.96 10^3/uL (1.8-7.7) H 09/19/22 17:02 Lymph # (Auto) 0.6 10^3/uL (0.8-4.8) L 09/19/22 17:02 Bullock # (Auto) 1.2 10^3/uL (0.2-0.9) H 09/19/22 17:02 Eos # (Auto) 0.0 10^3/uL (0.0-0.8) 09/19/22 17:02 Baso # (Auto) 0.0 10^3/uL (0.0-0.1) 09/19/22 17:02 Nucleated RBC % (auto) 0 % 09/19/22 17:02 Nucleated RBCs # 0.0 /100WBC 09/19/22 17:02 Specimen Type Arterial 09/19/22 17:00 Sample Site Brachial, right 09/19/22 17:00 ABG pH 7.33 (7.35-7.45) L 09/19/22 17:00 ABG pCO2 38.0 mmHg (35-45) 09/19/22 17:00 ABG pO2 82.7 mmHg (80.0-100.0) 09/19/22 17:00 ABG HCO3 20.2 mmol/L (22-26) L 09/19/22 17:00 ABG O2 Saturation 96.4 09/19/22 17:00 ABG Base Excess -5.2 mmol/L (-2.0-2.0) L 09/19/22 17:00 Ashok Test N/a 09/19/22 17:00 A-a O2 Gradient 2.2 mmHg (5-10) L 09/19/22 17:00 Hematocrit 34.6 % (42-52) L 09/19/22 17:00 Hgb O2 Saturation 94.5 % (95-100) L 09/19/22 17:00 Carboxyhemoglobin 1.6 %THgb (0.4-20.1) 09/19/22 17:00 Methemoglobin 0.4 % (0.4-1.5) 09/19/22 17:00 Total Hemoglobin 11.3 g/dL (14-18) L 09/19/22 17:00 Sodium 135.0 mmol/L (131-143) 09/19/22 17:00 Potassium 4.0 mmol/L (3.5-5.0) 09/19/22 17:00 Glucose 181.0 mg/dL (70-115) H 09/19/22 17:00 Ionized Calcium 1.2 mmol/L (1.1-1.4) 09/19/22 17:00 O2 Delivery Device Room air 09/19/22 17:00 FiO2 21.0 % 09/19/22 17:00 Neonatal Critical Care Nurse ID Amh 09/19/22 17:00 Sodium 134 mmol/L (136-145) L 09/19/22 17:02 Potassium 3.7 mmol/L (3.5-5.1) 09/19/22 17:02 Chloride 99 mmol/L (98-107) 09/19/22 17:02 Carbon Dioxide 20 mmol/L (22-29) L 09/19/22 17:02 Anion Gap 18.7 (5-19) 09/19/22 17:02 BUN 37 mg/dL (6-20) H 09/19/22 17:02 Creatinine 3.2 mg/dL (0.7-1.2) H 09/19/22 17:02 GFR Calculation 22.0 mL/min (90-130) L 09/19/22 17:02 Glucose 176 mg/dL (65-115) H 09/19/22 17:02 Calculated Osmolality 291 mOsm/kg (285-295) 09/19/22 17:02 Lactic Acid 1.1 mmol/L (0.5-2.2) 09/19/22 17:02 Calcium 8.5 mg/dL (8.5-10.5) 09/19/22 17:02 Magnesium 2.1 mg/dL (1.7-2.3) 09/19/22 17:02 Total Bilirubin 0.3 mg/dL (0.15-1.2) 09/19/22 17:02 AST 13 U/L (0-40) 09/19/22 17:02 ALT 12 U/L (0-41) 09/19/22 17:02 Alkaline Phosphatase 95 U/L (40-130) 09/19/22 17:02 Creatine Kinase 40 U/L (39-308) 09/19/22 17:02 Total Protein 7.6 g/dL (6.6-8.7) 09/19/22 17:02 Albumin 4.1 g/dL (3.5-5.2) 09/19/22 17:02 Globulin 3.5 g/dL (1.3-4.6) 09/19/22 17:02 Lipase 83 U/L (13-60) H 09/19/22 17:02 Urine Color Yellow (Yellow) 09/19/22 17:12 Urine Appearance Turbid (CLEAR) A 09/19/22 17:12 Urine pH 8 (5-7) H 09/19/22 17:12 Ur Specific [place] 1.020 (1.005-1.030) 09/19/22 17:12 Urine Protein 3+ (Negative) H 09/19/22 17:12 Urine Glucose (UA) Norm (Normal) 09/19/22 17:12 Urine Ketones Negative (Negative) 09/19/22 17:12 Urine Blood 2+ (Negative) H 09/19/22 17:12 Urine Nitrate Positive (Negative) H 09/19/22 17:12 Urine Bilirubin Neg (Negative) 09/19/22 17:12 Prot Sulfosalicylic Acd Negative (Negative) 09/19/22 17:12 Urine Urobilinogen Norm mg/dL (Negative) 09/19/22 17:12 Ur Leukocyte Esterase 2+ (Negative) H 09/19/22 17:12 Urine RBC 50-80 /hpf (0-2) H 09/19/22 17:12 Urine WBC >100 /hpf (0-5) H 09/19/22 17:12 Ur Squamous Epith Cells 0-4 /hpf (0-5) H 09/19/22 17:12 Amorphous Sediment Not Reportable 09/19/22 17:12 Urine Bacteria 4+ /hpf (NONE) H 09/19/22 17:12 Salicylates < 0.3 mg/dL (3-10) L 09/19/22 17:02 Urine Opiates Screen Positive ng/mL (Negative) H 09/19/22 17:12 Acetaminophen < 5.0 ug/mL (10-30) L 09/19/22 17:02 Ur Barbiturates Screen Negative ng/mL (Negative) 09/19/22 17:12 Ur Phencyclidine Scrn Negative ng/mL (Negative) 09/19/22 17:12 Ur Amphetamines Screen Negative ng/mL (Negative) 09/19/22 17:12 U Benzodiazepines Scrn Negative ng/mL (Negative) 09/19/22 17:12 Urine Cocaine Screen Negative ng/mL (Negative) 09/19/22 17:12 U Marijuana (THC) Screen Positive ng/mL (Negative) H 09/19/22 17:12 Ethyl Alcohol < 10 mg/dL (0-10) 09/19/22 17:02 Serum Ketones Negative (Negative) 09/19/22 17:02 Discharge Plan Discharge Patient Disposition: Admitted As Inpatient Admit Provider: Abigail Aguiar Clinical Impression: Sepsis, Acute urinary obstruction, Urinary tract infection Condition: Stable Coding Level of Care Code ED Commercial Lines Assistant for Chg Fwd Documented by User: Guille Espino DO 09/20/22 01:42 HPI - General Adult General: Chief complaint: Altered Mental Status Stated complaint: AMS Time Seen by Provider: 09/19/22 16:44 PFSH ED PFSH: Medical History Basal cell carcinoma HTN (hypertension) Paraplegia 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 UTI (urinary tract infection) Wound abscess Surgical History Hx of cholecystectomy Previous back surgery S/P ankle ligament repair Family History Mother , at age 60 Chronic kidney disease (CKD) Father , at age 71 Natural with unknown cause Other Anemia CAD (coronary artery disease) Diabetes Hypertension Social History Smoking and tobacco status: current every day smoker Alcohol intake: current Alcohol intake frequency: holidays/special occasions o nly Marital status: Current occupational status: disabled Course Consultations: Consultation #1: Stefania Vital Signs: Vital signs: Vital Signs Temperature 98.8 F 09/19/22 22:15 Pulse Rate 70 09/20/22 06:00 Respiratory Rate 18 09/20/22 06:00 Blood Pressure 108/82 09/20/22 06:00 Pulse Oximetry 98 09/20/22 06:00 Oxygen Delivery Me thod 09/19/22 22:14 MDM - General Adult Medical Decision Making 36-year-old male presenting with fever, altered mental status, and urinary retention. Peña was replaced, with 1200 out immediately. It does appear infected. White blood cell count is 22. However lactic acid is only 1.1. CT shows bladder wall thickening consistent with UTI and some hydronephrosis consistent with his prior urinary outlet obstruction. He does have a chronic left decubitus ulcer with potentially chronic osteomyelitis that has not changed since his prior CT. He has received fluids and antibiotics in the ER. Full sepsis bolus was given. He will need ICU care. Currently his heart rate is 100, blood pressure 100/70, saturation is 98% on room air with respirations of 15. Lab Data 09/19/22 17:02 09/19/22 17:02 Radiology Impressions Abdomen/Pelvis CT 09/19/22 16:52 IMPRESSION: 1. Chronic left decubitus ulcer and findings of chronic osteomyelitis not significantly changed. 2. Bladder wall thickening which could be due to infection or neurogenic bladder. Stranding in the adjacent fat suggests possible urinary tract infection 3. Bilateral hydronephrosis and hydroureter new from the previous examination 4. Findings worrisome for proctitis. 5. Stable appearance of T11 fracture and thoracolumbar spinal fusion. COMMENTS: For patients with an IVC filter, recommend assessment for a management plan for the patient's IVC filter. If there is no established management plan, recommend referral to an interventional clinician on a nonemergent basis for evaluation. Chest X-Ray 09/19/22 16:52 IMPRESSION: No acute infiltrate. Laboratory Results WBC 22.0 10^3/uL (4.0-10.0) H 09/19/22 17:02 RBC 3.61 10^6/uL (4.1-5.3) L 09/19/22 17:02 Hgb 11.5 g/dL (11.7-16.6) L 09/19/22 17:02 Hct 34.8 % (42.0-52.0) L 09/19/22 17:02 MCV 96.4 fl (80-94) H 09/19/22 17:02 MCH 31.9 pg (28.0-34.0) 09/19/22 17:02 MCHC 33.0 g/dL (30.0-36.0) 09/19/22 17:02 RDW 15.4 % (12.1-15.1) H 09/19/22 17:02 Plt Count 192 10^3/cmm (130-400) 09/19/22 17:02 MPV 9.9 fL (7.4-10.4) 09/19/22 17:02 Neut % (Auto) 90.9 % 09/19/22 17:02 Lymph % (Auto) 2.7 % 09/19/22 17:02 Bullock % (Auto) 5.4 % 09/19/22 17:02 Eos % (Auto) 0.2 % 09/19/22 17:02 Baso % (Auto) 0.2 % 09/19/22 17:02 Neut # (Auto) 19.96 10^3/uL (1.8-7.7) H 09/19/22 17:02 Lymph # (Auto) 0.6 10^3/uL (0.8-4.8) L 09/19/22 17:02 [place]ock # (Auto) 1.2 10^3/uL (0.2-0.9) H 09/19/22 17:02 Eos # (Auto) 0.0 10^3/uL (0.0-0.8) 09/19/22 17:02 Baso # (Auto) 0.0 10^3/uL (0.0-0.1) 09/19/22 17:02 Nucleated RBC % (auto) 0 % 09/19/22 17:02 Nucleated RBCs # 0.0 /100WBC 09/19/22 17:02 Specimen Type Arterial 09/19/22 17:00 Sample Site Brachial, right 09/19/22 17:00 ABG pH 7.33 (7.35-7.45) L 09/19/22 17:00 ABG pCO2 38.0 mmHg (35-45) 09/19/22 17:00 ABG pO2 82.7 mmHg (80.0-100.0) 09/19/22 17:00 ABG HCO3 20.2 mmol/L (22-26) L 09/19/22 17:00 ABG O2 Saturation 96.4 09/19/22 17:00 ABG Base Excess -5.2 mmol/L (-2.0-2.0) L 09/19/22 17:00 Ashok Test N/a 09/19/22 17:00 A-a O2 Gradient 2.2 mmHg (5-10) L 09/19/22 17:00 Hematocrit 34.6 % (42-52) L 09/19/22 17:00 Hgb O2 Saturation 94.5 % (95-100) L 09/19/22 17:00 Carboxyhemoglobin 1.6 %THgb (0.4-20.1) 09/19/22 17:00 Methemoglobin 0.4 % (0.4-1.5) 09/19/22 17:00 Total Hemoglobin 11.3 g/dL (14-18) L 09/19/22 17:00 Sodium 135.0 mmol/L (131-143) 09/19/22 17:00 Potassium 4.0 mmol/L (3.5-5.0) 09/19/22 17:00 Glucose 181.0 mg/dL (70-115) H 09/19/22 17:00 Ionized Calcium 1.2 mmol/L (1.1-1.4) 09/19/22 17:00 O2 Delivery Device Room air 09/19/22 17:00 FiO2 21.0 % 09/19/22 17:00 Neonatal Critical Care Nurse ID Amh 09/19/22 17:00 Sodium 134 mmol/L (136-145) L 09/19/22 17:02 Potassium 3.7 mmol/L (3.5-5.1) 09/19/22 17:02 Chloride 99 mmol/L (98-107) 09/19/22 17:02 Carbon Dioxide 20 mmol/L (22-29) L 09/19/22 17:02 Anion Gap 18.7 (5-19) 09/19/22 17:02 BUN 37 mg/dL (6-20) H 09/19/22 17:02 Creatinine 3.2 mg/dL (0.7-1.2) H 09/19/22 17:02 GFR Calculation 22.0 mL/min (90-130) L 09/19/22 17:02 Glucose 176 mg/dL (65-115) H 09/19/22 17:02 Calculated Osmolality 291 mOsm/kg (285-295) 09/19/22 17:02 Lactic Acid 1.1 mmol/L (0.5-2.2) 09/19/22 17:02 Calcium 8.5 mg/dL (8.5-10.5) 09/19/22 17:02 Magnesium 2.1 mg/dL (1.7-2.3) 09/19/22 17:02 Total Bilirubin 0.3 mg/dL (0.15-1.2) 09/19/22 17:02 AST 13 U/L (0-40) 09/19/22 17:02 ALT 12 U/L (0-41) 09/19/22 17:02 Alkaline Phosphatase 95 U/L (40-130) 09/19/22 17:02 Creatine Kinase 40 U/L (39-308) 09/19/22 17:02 Total Protein 7.6 g/dL (6.6-8.7) 09/19/22 17:02 Albumin 4.1 g/dL (3.5-5.2) 09/19/22 17:02 Globulin 3.5 g/dL (1.3-4.6) 09/19/22 17:02 Lipase 83 U/L (13-60) H 09/19/22 17:02 Urine Color Yellow (Yellow) 09/19/22 17:12 Urine Appearance Turbid (CLEAR) A 09/19/22 17:12 Urine pH 8 (5-7) H 09/19/22 17:12 Ur Specific [place] 1.020 (1.005-1.030) 09/19/22 17:12 Urine Protein 3+ (Negative) H 09/19/22 17:12 Urine Glucose (UA) Norm (Normal) 09/19/22 17:12 Urine Ketones Negative (Negative) 09/19/22 17:12 Urine Blood 2+ (Negative) H 09/19/22 17:12 Urine Nitrate Positive (Negative) H 09/19/22 17:12 Urine Bilirubin Neg (Negative) 09/19/22 17:12 Prot Sulfosalicylic Acd Negative (Negative) 09/19/22 17:12 Urine Urobilinogen Norm mg/dL (Negative) 09/19/22 17:12 Ur Leukocyte Esterase 2+ (Negative) H 09/19/22 17:12 Urine RBC 50-80 /hpf (0-2) H 09/19/22 17:12 Urine WBC >100 /hpf (0-5) H 09/19/22 17:12 Ur Squamous Epith Cells 0-4 /hpf (0-5) H 09/19/22 17:12 Amorphous Sediment Not Reportable 09/19/22 17:12 Urine Bacteria 4+ /hpf (NONE) H 09/19/22 17:12 Salicylates < 0.3 mg/dL (3-10) L 09/19/22 17:02 Urine Opiates Screen Positive ng/mL (Negative) H 09/19/22 17:12 Acetaminophen < 5.0 ug/mL (10-30) L 09/19/22 17:02 Ur Barbiturates Screen Negative ng/mL (Negative) 09/19/22 17:12 Ur Phencyclidine Scrn Negative ng/mL (Negative) 09/19/22 17:12 Ur Amphetamines Screen Negative ng/mL (Negative) 09/19/22 17:12 U Benzodiazepines Scrn Negative ng/mL (Negative) 09/19/22 17:12 Urine Cocaine Screen Negative ng/mL (Negative) 09/19/22 17:12 U Marijuana (THC) Screen Positive ng/mL (Negative) H 09/19/22 17:12 Ethyl Alcohol < 10 mg/dL (0-10) 09/19/22 17:02 Serum Ketones Negative (Negative) 09/19/22 17:02 Discharge Plan Discharge Patient Disposition: Admitted As Inpatient Admit Provider: Abigail Aguiar Clinical Impression: Sepsis, Acute urinary obstruction, Urinary tract infection Condition: Stable Coding Level of Care Code ED Commercial Lines Assistant for Amarjit Cancino
[2022-09-19 17:12] LABS: ABG PH Result 7.33 (7.35-7.45); Alveolar-Arterial Oxygen Gradi 2.2 mmHg (5-10); Arterial Blood Gas Hematocrit 34.6 % (42-52); Base Excess ABG -5.2 mmol/L (-2.0-2.0); Blood Gas Operator Identificat AMH; Blood Gas Sample Site Brachial, right; Blood Gas Sample Type Arterial; Carboxyhemoglobin 1.6 %THgb (0.4-20.1); HCO3 ABG 20.2 mmol/L (22-26); HGB O2 Sat 94.5 % (95-100); Ionized Calcium Level - ABG 1.2 mmol/L (1.1-1.4); Methemoglobin 0.4 % (0.4-1.5); Oxygen Device ROOM AIR; Oxygen Saturation ABG 96.4; PO2 ABG 82.7 mmHg (80.0-100.0); Total Hemoglobin 11.3 g/dL (14-18)
--- NOTE | 2022-09-19 17:13 | ECG_ITS ---
[facility] Test Date: 2022-09-19 Pat Name: Nikko Aparicio Department: Room: Gender: Male Director Heart: : 1985 Requested By: Fermin Reed Order Number: [id number] Myra MD: Orlando Henry M.D. Measurements Intervals [place] Rate: 97 P: 58 HI: 166 QRS: 74 QRSD: 92 T: 46 QT: 339 QTc: 431 Interpretive Statements SINUS RHYTHM Compared to ECG 08/16/2022 07:49:36 Sinus tachycardia no longer present Electronically Signed On 09-20-2022 7:12:43 CDT by Orlando Henry M.D. [id number]
[2022-09-19 17:19] LABS: Basophils % 0.2 %; Eosinophils % 0.2 %; Hematocrit 34.8 % (42.0-52.0); Hemoglobin 11.5 g/dL (11.7-16.6); Lymphocytes # 0.6 10^3/uL (0.8-4.8); Lymphocytes % 2.7 %; Mean Corpuscular Hemoglobin 31.9 pg (28.0-34.0); Mean Corpuscular Volume 96.4 fl (80-94); Mean Platelet Volume 9.9 fL (7.4-10.4); Monocytes # 1.2 10^3/uL (0.2-0.9); Monocytes % 5.4 %; Neutrophils # 19.96 10^3/uL (1.8-7.7); Neutrophils % 90.9 %; Nucleated Red Blood Cells % 0 %; Platelet Count 192 10^3/cmm (130-400); Red Blood Count 3.61 10^6/uL (4.1-5.3); Red Cell Distribution Width 15.4 % (12.1-15.1)
[2022-09-19 17:31] LABS: Ketone (Acetest) Serum Negative (Negative)
[2022-09-19 17:36] LABS: Alanine Aminotransferase 12 U/L (0-41); Albumin Level 4.1 g/dL (3.5-5.2); Alkaline Phosphatase 95 U/L (40-130); Anion Gap 18.7 (5-19); Aspartate Amino Transferase 13 U/L (0-40); Blood Urea Nitrogen 37 mg/dL (6-20); Calcium 8.5 mg/dL (8.5-10.5); Carbon Dioxide 20 mmol/L (22-29); Chloride 99 mmol/L (98-107); Globulin 3.5 g/dL (1.3-4.6); Glucose 176 mg/dL (65-115); Lipase 83 U/L (13-60); Magnesium 2.1 mg/dL (1.7-2.3); Osmolality Calculated 291 mOsm/kg (285-295); Potassium 3.7 mmol/L (3.5-5.1); Sodium 134 mmol/L (136-145); Total Bilirubin 0.3 mg/dL (0.15-1.2); Total Protein 7.6 g/dL (6.6-8.7)
[2022-09-19 17:37] LABS: Acetaminophen < 5.0 ug/mL (10-30); Alcohol Level < 10 mg/dL (0-10); Lactic Sepsis W/Reflex 1.1 mmol/L (0.5-2.2); Salicylate < 0.3 mg/dL (3-10)
[2022-09-19 18:13] LABS: Bilirubin Urine Neg (Negative); Blood Urine 2+ (Negative); Glucose Urine UA Norm (Normal); Ketones Urine Negative (Negative); Nitrate Urine Positive (Negative); Protein Urine 3+ (Negative); Sulfosalicylic Acid Urine Negative (Negative); Urine Appearance Turbid (CLEAR); Urine Color Yellow (Yellow); Urobilinogen Urine Norm (Negative); pH Urine 8 (5-7)
[2022-09-19 18:14] LABS: Add Urine Microscopic? YES; Leukocyte Esterase Urine 2+ (Negative)
[2022-09-19 18:15] LABS: WBC Urine >100 /hpf (0-5)
[2022-09-19 18:17] LABS: RBC Urine 50-80 /hpf (0-2); Squamous Epithelial Cell Urine 0-4 /hpf (0-5)
[2022-09-19 18:18] LABS: Add Urine Culture? Yes; Bacteria Urine 4+ /hpf
[2022-09-19 18:19] LABS: Amphetamines Screen Urine Negative (Negative); Barbiturates Screen Urine Negative (Negative); Benzodiazepines Screen Urine Negative (Negative); Cocaine Screen Urine Negative (Negative); Opiate Screen Urine Positive (Negative); PCP Screen Urine Negative (Negative); THC Screen Urine Positive (Negative)
[2022-09-19] MEDS: LORazepam 2 mg/mL INJ 1 mL IVP ×2 (18:24→20:56)
[2022-09-19] MEDS: sodium chloride 0.9% 1,000 ML 999 ML IV (18:25)
[2022-09-19] MEDS: meropenem 1,000 MG in sodium chloride 0.9% (plus) 50 ML 100 MG IV (18:42)
--- NOTE | 2022-09-19 19:45 | PC.NURSE ---
Upon entry to room, pt was noted to be in bilateral wrist restraints. BUE have even pulses and appropriate cap refill. Pt was placed on conveyor monitor and put into gown by this nurse. Pt urinary catheter bag was drained of 2300ml urine and a new stat lock was placed to upper right leg. Pt unable to follow commands at this time and is continuing to pull at lines. L FA IV was check and is not patent at this time. IV removed. Catheter intact.
--- NOTE | 2022-09-19 19:46 | PC.NURSE ---
Pt unable to comprehend teaching of restraint necessity
[2022-09-19] MEDS: heparin 5,000 unit/mL INJ 1 mL 5000 UNIT SUBCUT (21:08)
[2022-09-19] MEDS: vancomycin 1,000 MG in sodium chloride 0.9% 250 ML 250 MG IV (21:08)
[2022-09-19] MEDS: sodium chloride 0.9% 1,000 ML 125 ML IV (21:09)
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
--- NOTE | 2022-09-19 22:24 | PC.NURSE ---
fluid continued to floor. Pt allergy band in place per this nurse placement upon shift change.
[2022-09-19 22:29] LABS: Creatine Phosphokinase 40 U/L (39-308)
--- NOTE | 2022-09-19 23:25 | PC.NURSE ---
Admission Pt received via stretcher from ER, pt in soft bilateral restraints, twisting in bed, attempting to pull out lines and tubes, unable to be redirected, does not follow commands or respond appropriately to questions. Pt only repeats OK . Will make eye contact but there is no evidence pt understands or comprehends questions or direction. Pt thrashing around in bed, twisting shoulders, grasping anything close to hands, grabbing at staff and pulling. HR is irregular, sinus arrhythmia, on room air, no evidence of respiratory distress. Peña draining sediment light yellow urine, emptied 1000 ml. VSS.
[2022-09-20] VITALS (222 sets, daily range): BP systolic 90–156; BP diastolic 65–128; PULSE 54–173; RESP 8–31; TEMP 36.1–36.9; O2SAT 79–100
[2022-09-20] MEDS: LORazepam 2 mg/mL INJ 1 mL 1 MG IVP (00:21)
--- NOTE | 2022-09-20 00:51 | PC.NURSE ---
Pt has chronic catheter. Old catheter removed and new catheter placed by day shift ED nurse.
[2022-09-20] MEDS: dexmedetomidine 400 MCG in sodium chloride 0.9% (100 ml) 100 ML IV (02:18)
[2022-09-20] MEDS: meropenem 1,000 MG in sodium chloride 0.9% (plus) 50 ML 100 MG IV ×3 (02:34→18:05)
[2022-09-20] MEDS: morphine 4 mg/mL SDV 1 mL 2 MG IVP (03:54)
[2022-09-20] MEDS: sodium chloride 0.9% 1,000 ML 125 ML IV ×3 (05:05→20:14)
[2022-09-20 05:12] LABS: Basophils % 0.2 %; Eosinophils # 0.1 10^3/uL (0.0-0.8); Eosinophils % 1.2 %; Hematocrit 33.5 % (42.0-52.0); Hemoglobin 10.4 g/dL (11.7-16.6); Lymphocytes # 0.7 10^3/uL (0.8-4.8); Lymphocytes % 7.5 %; Mean Corpuscular Hemoglobin 30.7 pg (28.0-34.0); Mean Corpuscular Volume 98.8 fl (80-94); Mean Platelet Volume 9.7 fL (7.4-10.4); Monocytes # 0.7 10^3/uL (0.2-0.9); Monocytes % 7.2 %; Neutrophils # 7.95 10^3/uL (1.8-7.7); Neutrophils % 83.3 %; Nucleated Red Blood Cells % 0 %; Platelet Count 156 10^3/cmm (130-400); Red Blood Count 3.39 10^6/uL (4.1-5.3); Red Cell Distribution Width 15.7 % (12.1-15.1); White Blood Count 9.6 10^3/uL (4.0-10.0)
[2022-09-20] MEDS: dexmedetomidine 400 MCG in sodium chloride 0.9% (100 ml) 100 ML 24.88 MCG IV (05:20)
[2022-09-20 05:35] LABS: Alanine Aminotransferase 13 U/L (0-41); Albumin Level 3.3 g/dL (3.5-5.2); Alkaline Phosphatase 79 U/L (40-130); Anion Gap 11.5 (5-19); Aspartate Amino Transferase 15 U/L (0-40); Blood Urea Nitrogen 26 mg/dL (6-20); Calcium 8.4 mg/dL (8.5-10.5); Carbon Dioxide 20 mmol/L (22-29); Chloride 116 mmol/L (98-107); Globulin 3.1 g/dL (1.3-4.6); Glomerular Filtration Rate 37.8 mL/min (90-130); Glucose 110 mg/dL (65-115); Magnesium 2.3 mg/dL (1.7-2.3); Osmolality Calculated 303 mOsm/kg (285-295); Potassium 3.5 mmol/L (3.5-5.1); Sodium 144 mmol/L (136-145); Total Bilirubin 0.3 mg/dL (0.15-1.2); Total Protein 6.4 g/dL (6.6-8.7)
[2022-09-20 07:52] LABS: Glucose Point of Care 122 mg/dL (70-110)
[2022-09-20] MEDS: pantoprazole 40 mg SDV IVP (07:59)
[2022-09-20] MEDS: heparin 5,000 unit/mL INJ 1 mL 5000 UNIT SUBCUT ×2 (07:59→20:19)
[2022-09-20] MEDS: levETIRAcetam 750 MG in sodium chloride 0.9% (100 ml) 100 ML 430 MG IV ×2 (08:19→19:38)
[2022-09-20] MEDS: OLANZapine 10 mg VIAL 5 MG IM ×2 (08:50→10:25)
[2022-09-20 12:37] LABS: Glucose Point of Care 114 mg/dL (70-110)
--- NOTE | 2022-09-20 12:46 | PC.PHAR ---
ADJUST VANCOMYCIN DOSE DUE TO IMPROVING RENAL FUNCTION CURRENT DOSE: 1000 MG Q24H NEW DOSE: 1000 MG Q18H Pharmacokinetic dosing service Objective: Patient: Floor: Age: 36 yo Serum creatinine: 2 mg/dL Height: 68.1 Inches Weight (kg): 79 Assessment: IBW (kg): 68.63 Dosing wt(kg): 79 Estimated Creatinine clearance (ml/min): 52.1 CRCL method: Cockcroft and Gault using adjusted body weight Drug selected: Vancomycin Loading dose (mg): Vd (liters): 55.3 (factor used: 0.7 L/kg) Calin (hr-1): 0.048 Half life (hrs): 14.44 CLvanco=?? 2.654 L/hr Recommended dose: 1000 mg Interval: 18 hrs Infusion time (hrs): 1 Predicted peak (mcg/mL): 30.5 Predicted trough (mcg/mL): 13.49 Total body weight is being used for vancomycin dosing. Renal function is stable [ ] /unstable [ ] Recommendations: Give Vancomycin 1000 mg q 18 hrs with an expected Cpeak of 30.5 mcg/ml and an expected Ctrough of 13.49 mcg/ml AUC 0-24 /DUSTY Data: DUSTY 0.5 mcg/mL:?? AUC/DUSTY:? 1004.8 DUSTY 1.0 mcg/mL:?? AUC/DUSTY:? 502.4 --------- DUSTY 1.5 mcg/mL:?? AUC/DUSTY:? 334.9 DUSTY 2.0 mcg/mL:?? AUC/DUSTY:? 251.2 Thank you for the consult, will continue to follow.
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
--- NOTE | 2022-09-20 13:46 | USR_ITS ---
PROCEDURE INFORMATION: Exam: US Retroperitoneal; Complete; Kidneys and Bladder Exam date and time: 09/20/2022 4:45 PM Age: 36 years old Clinical indication: Condition or disease; Kidney or ureter condition; Acute renal insufficiency; Additional info: Hydronephrosis TECHNIQUE: Imaging protocol: Real-time ultrasound of the retroperitoneum with image documentation. Complete exam focused on the kidneys and bladder. COMPARISON: US abdomen complete* [id number] 12/24/2018 4:14 AM FINDINGS: Right kidney: Normal. No stones. No hydronephrosis. Left kidney: There is a simple cyst in the left kidney measuring 1.2 x 1.1 x 1.1 cm. Urinary bladder: Unremarkable. US/US renal BI* [id number] IMPRESSION: There is a 1.2 cm simple cyst in the left kidney. Otherwise unremarkable renal ultrasound.
[2022-09-20] MEDS: HYDROcodone-acetaminophen 5-325 mg Tablet 1 TAB PO ×2 (14:44→20:19)
[2022-09-20] MEDS: vancomycin 1,000 MG in sodium chloride 0.9% 250 ML 250 MG IV (14:57)
[2022-09-20] MEDS: baclofen 10 mg Tablet 60 MG PO (18:04)
[2022-09-20] MEDS: risperiDONE 1 mg Tablet 0.5 MG PO (18:05)
[2022-09-20] MEDS: gabapentin 300 mg Capsule PO (18:05)
[2022-09-20] MEDS: lanolin oint 7 gm 1 APPLIC TOPICAL (18:08)
[2022-09-20 18:24] LABS: Glucose Point of Care 104 mg/dL (70-110)
[2022-09-20] MEDS: duloxetine 30 mg Capsule PO (20:19)
[2022-09-20] MEDS: trazodone 150 mg Tablet PO (20:19)
[2022-09-20 21:55] LABS: Glucose Point of Care 71 mg/dL (70-110)
[2022-09-21] VITALS (20 sets, daily range): BP systolic 96–132; BP diastolic 61–85; PULSE 60–144; RESP 11–24; TEMP 36.5–37.5; O2SAT 93–100
[2022-09-21 00:43] LABS: Glucose Point of Care 72 mg/dL (70-110)
[2022-09-21] MEDS: meropenem 1,000 MG in sodium chloride 0.9% (plus) 50 ML 100 MG IV ×3 (02:39→18:03)
[2022-09-21 04:14] LABS: Basophils # 0.1 10^3/uL (0.0-0.1); Basophils % 0.7 %; Eosinophils # 0.2 10^3/uL (0.0-0.8); Eosinophils % 2.6 %; Hematocrit 31.5 % (42.0-52.0); Hemoglobin 9.9 g/dL (11.7-16.6); Lymphocytes # 1.1 10^3/uL (0.8-4.8); Lymphocytes % 15.1 %; Mean Corpuscular HGB Conc 31.4 g/dL (30.0-36.0); Mean Corpuscular Hemoglobin 31.6 pg (28.0-34.0); Mean Corpuscular Volume 100.6 fl (80-94); Mean Platelet Volume 9.8 fL (7.4-10.4); Monocytes # 0.5 10^3/uL (0.2-0.9); Monocytes % 6.9 %; Neutrophils # 5.34 10^3/uL (1.8-7.7); Neutrophils % 74.3 %; Nucleated Red Blood Cells % 0 %; Platelet Count 157 10^3/cmm (130-400); Red Blood Count 3.13 10^6/uL (4.1-5.3); Red Cell Distribution Width 15.4 % (12.1-15.1); White Blood Count 7.2 10^3/uL (4.0-10.0)
--- NOTE | 2022-09-21 04:26 | PC.NURSE ---
Patient passed bedside swallow, cardiac diet ordered. Patient given turkey sandwich and diet rimma.
[2022-09-21 04:29] LABS: Lactate (Lactic Acid level) 0.9 mmol/L (0.5-2.2)
[2022-09-21 04:34] LABS: Glucose Point of Care 98 mg/dL (70-110)
[2022-09-21 04:56] LABS: Alanine Aminotransferase 23 U/L (0-41); Albumin Level 3.2 g/dL (3.5-5.2); Alkaline Phosphatase 72 U/L (40-130); Anion Gap 15.1 (5-19); Aspartate Amino Transferase 25 U/L (0-40); Blood Urea Nitrogen 15 mg/dL (6-20); C Reactive Protein 81.4 mg/L (0.0-4.9); Calcium 8.3 mg/dL (8.5-10.5); Carbon Dioxide 17 mmol/L (22-29); Chloride 103 mmol/L (98-107); Globulin 3.1 g/dL (1.3-4.6); Glomerular Filtration Rate 62.1 mL/min (90-130); Glucose 76 mg/dL (65-115); Magnesium 1.8 mg/dL (1.7-2.3); Osmolality Calculated 274 mOsm/kg (285-295); Phosphorus 3.7 mg/dL (2.5-4.5); Potassium 3.1 mmol/L (3.5-5.1); Procalcitonin 0.18 ng/mL (0-0.5); Sodium 132 mmol/L (136-145); Total Bilirubin 0.3 mg/dL (0.15-1.2); Total Protein 6.3 g/dL (6.6-8.7)
[2022-09-21 05:08] LABS: Creatine Phosphokinase 331 U/L (39-308)
[2022-09-21] MEDS: heparin 5,000 unit/mL INJ 1 mL 5000 UNIT SUBCUT ×2 (08:15→20:04)
[2022-09-21] MEDS: duloxetine 60 mg Capsule PO (08:16)
[2022-09-21] MEDS: risperiDONE 1 mg Tablet 0.5 MG PO (08:16)
[2022-09-21] MEDS: sodium chloride 0.9% 1,000 ML 125 ML IV (08:17)
[2022-09-21] MEDS: ALPRAZolam 0.5 mg Tablet PO (08:17)
[2022-09-21] MEDS: pantoprazole 40 mg SDV IVP (08:17)
[2022-09-21] MEDS: levETIRAcetam 750 MG in sodium chloride 0.9% (100 ml) 100 ML 430 MG IV ×2 (08:18→20:02)
[2022-09-21] MEDS: baclofen 10 mg Tablet 60 MG PO ×2 (08:24→16:39)
[2022-09-21] MEDS: vancomycin 1,000 MG in sodium chloride 0.9% 250 ML 250 MG IV (09:08)
[2022-09-21] MEDS: potassium chloride ER 20 mEq Tablet 40 MEQ PO (09:09)
[2022-09-21 11:17] LABS: Glucose Point of Care 159 mg/dL (70-110)
[2022-09-21] MEDS: insulin lispro 100 unit/1 mL SUBCUT ×2 (11:34→22:01)
--- NOTE | 2022-09-21 12:23 | PC.NURSE ---
Report called to KELSEY Mcnally. Patient and belongings taken to room 262-1. Family at bedside.
--- NOTE | 2022-09-21 12:31 | P.PN_ITS ---
Subjective Subjective: Patient was seen this morning, he is alert and awake, follows commands, he denies any pain complaints, he tells me he wants to change his CODE STATUS, he does not want to have chest compressions given his titanium rib plates, but is okay with defibrillation, ACLS drugs, okay with intubation, overa ll he is doing well, at bedside, Vitals/I&O/Wt Last Vital Signs Temp 99.5 F 09/21/22 11:30 Pulse 112 H 09/21/22 11:30 Resp 15 09/21/22 11:30 BP 132/69 09/21/22 11:00 Pulse Ox 93 09/21/22 11:30 O2 Del Method 09/21/22 11:30 09/20/22 09/21/22 09/21/22 22:59 06:59 14:59 Intake Total 1858.288 / 3152.677 950 / 4102.677 1167.5 / 1167.5 Output Total 800 / 1400 1800 / 3200 1999 / 1999 Balance 1058.288 / 1752.677 -850 / 902.677 -832.5 / -832.5 Weight last 48 hrs Weight 81.647 kg Weight 78.562 kg Weight 79.742 kg Weight 83.915 kg Physical Exam Const: COMMON NORMALS: no acute distress and patient oriented x3 Resp: COMMON NORMALS: normal respiratory effort, No retractions, No use of accessory muscles and clear to auscultation bilaterally AUSCULTATION: clear to auscultation bilaterally Cardio: COMMON NORMALS: regular rate, regular rhythm, S1 normal heart sound present and S2 normal heart sound present RATE: regular rate RHYTHM: regular rhythm HEART SOUNDS: S1 normal heart sound present and S2 normal heart sound present GI: COMMON NORMALS: Normal to inspection, nondistended, normoactive bowel sounds present and non-tender Extremity: COMMON NORMALS: no pedal edema Neuro: COMMON NORMALS: patient oriented x3 Psych: COMMON NORMALS: mental status grossly normal Urinary Catheter Management: Peña: Cath Placed During This Visit: yes Reason for Continuing Indwelling Catheter: Accurate Measurement of Urinary Output in Critically Ill Patients Urinary Catheter Date of Insertion: 09/19/22 Urinary Catheter Time of Insertion: 17:38 Data 09/21/22 03:30 04/02/23 03:30 Micro: Microbiology 09/19/22 17:12 Urine Culture - Preliminary Urine,Clean Catch Gram Negative Rods 09/19/22 18:00 Blood Culture - Preliminary Blood NEGATIVE TO DATE 09/19/22 18:00 Blood Culture - Preliminary Blood NEGATIVE TO DATE 09/20/22 08:45 Gram Stain - Final Buttock A&P Assessment and plan (1) Urinary tract infection: (2) Acute renal failure: (3) Anxiety: (4) Positive urine drug screen: (5) Acute renal failure (ARF): (6) Acute urinary obstruction: (7) DM type 2 (diabetes mellitus, type 2): (8) Neurogenic bladder: (9) Chronic indwelling Peña catheter: (10) 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 coli bacteremia, requiring 14 days of meropenem #Sepsis, sepsis criteria met with STEFANI, and encephalopathy, leukocyte is a 22, pH 7.33, source of infection is urine #UTI #Chronic indwelling catheter secondary to neurogenic bladder #Bilateral hydronephrosis and hydroureter new from previous examination #Proctitis? #Paraplegic #Former alcohol abuse #Hypertension #Stage IV history of wound, appears healthy #Acute kidney injury due to postrenal cause #Hypoalbuminemia #Seizures #Patient intubated multiple times in the past, history of gram-negative bacteremia -Continue Keppra 750 twice daily IV ? Follow urine culture, blood culture, sputum culture Gram stain ? Continue on vancomycin and meropenem ? Creatinine 1.3 likely second to sepsis, most likely due to his hospital course. Peña has been replaced patient hopefully status improved. Placed on IV fluids normal saline 125 cc/h, will DC collate ? Monitor BMP twice daily,-kidney function ? check stool ova parasite, stool culture, bacterial -Check daily labs ? Reviewed chest x-ray image. No evidence of pneumonia at this time ? I would continue patient's alprazolam, baclofen, duloxetine, trazodone, v arencline ? Hold spironolactone hydrochlorothiazide, trazodone ? Reduce gabapentin dose to 300 twice daily due to STEFANI -Hold glimepiride -Start insulin insulin low-dose intensity -Patient bilateral hydronephrosis is likely due to urinary retention, after 1300 mL was evacuated after Peña catheter removal, likely bilateral hydronephrosis will improve we will repeat a renal ultrasound -Stage IV wound, left hip, continue to monitor, dressing changes, offloading CODE STATUS, does not want chest compressions, okay with drugs per ACLS, defibrillation, intubation ? 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
--- NOTE | 2022-09-21 12:42 | PC.NURSE ---
Gabapentin Patient refused, states no longer takes it. notified.
[2022-09-21] MEDS: HYDROcodone-acetaminophen 5-325 mg Tablet 1 TAB PO (14:05)
[2022-09-21 16:18] LABS: Glucose Point of Care 116 mg/dL (70-110)
[2022-09-21] MEDS: trazodone 150 mg Tablet PO (20:01)
[2022-09-21] MEDS: duloxetine 30 mg Capsule PO (20:01)
[2022-09-21 21:36] LABS: Glucose Point of Care 168 mg/dL (70-110)
[2022-09-22 00:19] VITALS: BP 106/63; PULSE 74; RESP 17; TEMP 36.8; O2SAT 97
[2022-09-22] MEDS: meropenem 1,000 MG in sodium chloride 0.9% (plus) 50 ML 100 MG IV (02:15)
[2022-09-22 02:29] LABS: Basophils % 0.5 %; Eosinophils # 0.2 10^3/uL (0.0-0.8); Eosinophils % 3.4 %; Hematocrit 30.2 % (42.0-52.0); Hemoglobin 9.9 g/dL (11.7-16.6); Lymphocytes # 1.6 10^3/uL (0.8-4.8); Lymphocytes % 28.5 %; Mean Corpuscular HGB Conc 32.8 g/dL (30.0-36.0); Mean Corpuscular Hemoglobin 30.9 pg (28.0-34.0); Mean Corpuscular Volume 94.4 fl (80-94); Mean Platelet Volume 9.6 fL (7.4-10.4); Monocytes # 0.6 10^3/uL (0.2-0.9); Monocytes % 11.4 %; Nucleated Red Blood Cells % 0 %; Platelet Count 183 10^3/cmm (130-400); Red Cell Distribution Width 15.3 % (12.1-15.1); White Blood Count 5.5 10^3/uL (4.0-10.0)
[2022-09-22 02:55] LABS: Alanine Aminotransferase 16 U/L (0-41); Alkaline Phosphatase 64 U/L (40-130); Anion Gap 14.2 (5-19); Aspartate Amino Transferase 12 U/L (0-40); Blood Urea Nitrogen 15 mg/dL (6-20); C Reactive Protein 41.5 mg/L (0.0-4.9); Calcium 8.7 mg/dL (8.5-10.5); Carbon Dioxide 20 mmol/L (22-29); Chloride 108 mmol/L (98-107); Creatinine Clr Calc Pharmacy 105.4302; Globulin 3.1 g/dL (1.3-4.6); Glomerular Filtration Rate 84.1 mL/min (90-130); Glucose 97 mg/dL (65-115); Magnesium 1.6 mg/dL (1.7-2.3); Osmolality Calculated 289 mOsm/kg (285-295); Phosphorus 4.1 mg/dL (2.5-4.5); Potassium 3.2 mmol/L (3.5-5.1); Sodium 139 mmol/L (136-145); Total Bilirubin 0.2 mg/dL (0.15-1.2); Total Protein 6.1 g/dL (6.6-8.7)
[2022-09-22 03:00] LABS: Vancomycin Trough 12.3 ug/mL (10-15)
[2022-09-22 03:02] LABS: Procalcitonin 0.12 ng/mL (0-0.5)
[2022-09-22] MEDS: vancomycin 1,000 MG in sodium chloride 0.9% 250 ML 250 MG IV (03:07)
[2022-09-22 03:40] LABS: Glucose Point of Care 107 mg/dL (70-110)
[2022-09-22 03:50] VITALS: BP 119/77; PULSE 83; RESP 19; TEMP 36.4; O2SAT 98
[2022-09-22 06:05] VITALS: PULSE 88
--- NOTE | 2022-09-22 06:23 | ECG_ITS ---
[facility] Test Date: 2022-09-22 Pat Name: Nikko Aparicio Department: Room: 262 Gender: Male [employer]: : 1985 Requested By: Abigail Aguiar Order Number: [id number] Myra MD: Orlando Henry M.D. Measurements Intervals [place] Rate: 78 P: 28 DC: 169 QRS: 77 QRSD: 102 T: 47 QT: 363 QTc: 415 Interpretive Statements SINUS RHYTHM WITH MARKED SINUS ARRHYTHMIA Compared to ECG 09/19/2022 17:13:43 No significant changes Electronically Signed On 09-22-2022 13:06:50 CDT by Orlando Henry M.D. [id number]
[2022-09-22 06:34] LABS: Glucose Point of Care 117 mg/dL (70-110)
[2022-09-22 08:00] VITALS: BP 117/71; PULSE 80; RESP 17; TEMP 36.9; O2SAT 99
[2022-09-22] MEDS: magnesium lactate 84 mg Tablet PO (09:33)
[2022-09-22] MEDS: baclofen 10 mg Tablet 60 MG PO (09:33)
[2022-09-22] MEDS: potassium chloride ER 20 mEq Tablet 40 MEQ PO (09:34)
[2022-09-22] MEDS: duloxetine 60 mg Capsule PO (09:34)
[2022-09-22] MEDS: heparin 5,000 unit/mL INJ 1 mL 5000 UNIT SUBCUT (09:35)
--- NOTE | 2022-09-22 10:02 | PC.SOCIAL ---
IMM Update pg 2 of IMM updated and reviewed w/ patient. Copy provided and Copy dated, initialed and placed in chart.
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
[2022-09-22 12:23] LABS: Glucose Point of Care 145 mg/dL (70-110)
== END 2022-09-22 12:45 | disposition home health service (06) | DRG 871 ==
LOC: ER 19:57 → ICU 23:32 → MEDSURG 09-21 12:52
PROVIDERS: Family Medicine; Admitting Provider Internal Medicine; Emergency Provider Emergency Medicine; PCP Internal Medicine; Visit Provider Family Medicine
DX: A41.9 Sepsis, unspecified organism (principal); G93.41 Metabolic encephalopathy; L89.224 Pressure ulcer of left hip, stage 4; N39.0 Urinary tract infection, site not specified; G82.20 Paraplegia, unspecified; N13.30 Unspecified hydronephrosis; N17.9 Acute kidney failure, unspecified; B96.4 Proteus (mirabilis) (morganii) as the cause of diseases classified elsewhere; T83.098A Other mechanical complication of other urinary catheter, initial encounter; Y73.1 Therapeutic (nonsurgical) and rehabilitative gastroenterology and urology devices associated with adverse incidents; I10 Essential (primary) hypertension; N31.9 Neuromuscular dysfunction of bladder, unspecified; Z98.1 Arthrodesis status; G25.89 Other specified extrapyramidal and movement disorders; M62.838 Other muscle spasm; Z79.891 Long term (current) use of opiate analgesic; Z85.828 Personal history of other malignant neoplasm of skin; F17.200 Nicotine dependence, unspecified, uncomplicated; F41.9 Anxiety disorder, unspecified; Z79.84 Long term (current) use of oral hypoglycemic drugs; E11.9 Type 2 diabetes mellitus without complications; Z66 Do not resuscitate; F12.90 Cannabis use, unspecified, uncomplicated; F10.11 Alcohol abuse, in remission
CPT/HCPCS: 36415; 36416; 36600; 51702; 71045; 74176; 76770; 80051; 80053; 80202; 80306; 80307; 81001; 82009; 82330; 82550; 82553; 82805; 82962; 83605; 83690; 83735; 84100; 84145; 85025; 86140; 87040; 87070; 87075; 87077; 87086; 87186; 87205; 93005; 96365; 96367; 96372; 96375; 96376; 99291; 99292; C9113; J1644; J1815; J1953; J2060; J2185; J2270; J3370; J3490; J7030; J7050

== ENCOUNTER → 2022-09-29 15:29 | Outpatient (BNVA) | payer MEDICARE, MEDICAID, SELFPAY | PROVIDERS: PCP Internal Medicine; Visit Provider Thoracic Surgery (Cardiothoracic Vascular Surgery) | DX: I96 Gangrene, not elsewhere classified (principal); L89.322 Pressure ulcer of left buttock, stage 2 | CPT/HCPCS: 11042; A6210 ==

== ENCOUNTER → 2022-10-15 15:08 | Outpatient (BNVA) | payer MEDICARE, MEDICAID, SELFPAY | PROVIDERS: PCP Internal Medicine; Visit Provider Thoracic Surgery (Cardiothoracic Vascular Surgery) | DX: I96 Gangrene, not elsewhere classified (principal); L89.322 Pressure ulcer of left buttock, stage 2 | CPT/HCPCS: 11042; A6210 ==

== ENCOUNTER → 2022-10-29 15:01 | Outpatient (BNVA) | payer MEDICARE, MEDICAID, SELFPAY | PROVIDERS: PCP Internal Medicine; Visit Provider Thoracic Surgery (Cardiothoracic Vascular Surgery) | DX: I96 Gangrene, not elsewhere classified (principal); L89.322 Pressure ulcer of left buttock, stage 2 | CPT/HCPCS: 11042; A6210 ==

== ENCOUNTER → 2022-11-12 14:34 | Outpatient (BNVA) | payer MEDICARE, MEDICAID, SELFPAY | PROVIDERS: PCP Internal Medicine; Visit Provider Thoracic Surgery (Cardiothoracic Vascular Surgery) | DX: I96 Gangrene, not elsewhere classified (principal); L89.322 Pressure ulcer of left buttock, stage 2 | CPT/HCPCS: 97597 ==

== ENCOUNTER → 2022-12-01 15:13 | Outpatient (BNVA) | payer MEDICARE, MEDICAID, SELFPAY | PROVIDERS: PCP Internal Medicine; Visit Provider Thoracic Surgery (Cardiothoracic Vascular Surgery) | DX: I96 Gangrene, not elsewhere classified (principal); L89.324 Pressure ulcer of left buttock, stage 4 | CPT/HCPCS: 11042 ==

== ENCOUNTER → 2022-12-15 15:04 | Outpatient (BNVA) | payer MEDICARE, MEDICAID, SELFPAY | PROVIDERS: PCP Internal Medicine; Visit Provider Thoracic Surgery (Cardiothoracic Vascular Surgery) | DX: I96 Gangrene, not elsewhere classified (principal); L89.324 Pressure ulcer of left buttock, stage 4 | CPT/HCPCS: 99212; A6210 ==

== ENCOUNTER → 2022-12-29 14:02 | Outpatient (BNVA) | payer MEDICARE, MEDICAID, SELFPAY | PROVIDERS: PCP Internal Medicine; Visit Provider Thoracic Surgery (Cardiothoracic Vascular Surgery) | DX: I96 Gangrene, not elsewhere classified (principal); L89.324 Pressure ulcer of left buttock, stage 4 | CPT/HCPCS: 97597; A6210; A6219 ==

== ENCOUNTER → 2023-01-12 12:58 | Outpatient (BNVA) | payer MEDICARE, MEDICAID, SELFPAY | PROVIDERS: PCP Internal Medicine; Visit Provider Thoracic Surgery (Cardiothoracic Vascular Surgery) | DX: I96 Gangrene, not elsewhere classified (principal); L89.324 Pressure ulcer of left buttock, stage 4 | CPT/HCPCS: 97597 ==

== ENCOUNTER → 2023-02-09 13:04 | Outpatient (BNVA) | payer MEDICARE, MEDICAID, SELFPAY | PROVIDERS: PCP Internal Medicine; Visit Provider Thoracic Surgery (Cardiothoracic Vascular Surgery) | DX: I96 Gangrene, not elsewhere classified (principal); L89.324 Pressure ulcer of left buttock, stage 4 | CPT/HCPCS: 97597; A6210 ==

== ENCOUNTER 2023-03-02 12:09 | Emergency (ER) | payer MEDICARE, MEDICAID, SELFPAY ==
[2023-03-02 12:20] VITALS: BP 117/86; PULSE 133; RESP 20; TEMP 36.9; O2SAT 94; BMI 30.4
--- NOTE | 2023-03-02 12:25 | ECG_ITS ---
[facility] Test Date: 2023-03-02 Pat Name: Nikko Aparicio Department: Room: Gender: Male [employer]: : 1985 Requested By: Jen Adair Order Number: [id number] Myra MD: Rey De La Cruz M.D. Measurements Intervals Jay Rate: 137 P: 33 ID: 143 QRS: 107 QRSD: 89 T: 38 QT: 291 QTc: 440 Interpretive Statements SINUS TACHYCARDIA RIGHT AXIS DEVIATION [QRS AXIS > 100] Compared to ECG 09/22/2022 06:23:04 Right-axis deviation now present Sinus rhythm no longer present Sinus arrhythmia no longer present Electronically Signed On 03-02-2023 16:03:31 CDT by Rey De La Cruz M.D. [id number]
[2023-03-02 12:27] VITALS: BP 117/86; PULSE 133; RESP 20; TEMP 36.9; O2SAT 94
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
[2023-03-02] MEDS: sodium chloride 0.9% 1,000 ML 999 ML IV (13:05)
[2023-03-02] MEDS: ondansetron 2 mg/ML SDV 2 mL 4 MG IVP (13:12)
[2023-03-02] MEDS: baclofen 10 mg Tablet 60 MG PO (13:13)
[2023-03-02 13:15] VITALS: BP 106/82; PULSE 120; RESP 22; O2SAT 96
[2023-03-02 13:20] LABS: Basophils # 0.1 10^3/uL (0.0-0.1); Basophils % 0.5 %; Eosinophils # 0.2 10^3/uL (0.0-0.8); Eosinophils % 2.2 %; Hematocrit 44.7 % (37-53); Lymphocytes % 19.6 %; Mean Corpuscular HGB Conc 35.1 g/dL (30-55); Mean Corpuscular Hemoglobin 31.9 pg (27-33); Mean Corpuscular Volume 90.9 fl (82-101); Mean Platelet Volume 9.8 fL (7.4-10.4); Monocytes % 9.8 %; Neutrophils # 6.89 10^3/uL (1.8-7.7); Neutrophils % 67.4 %; Nucleated Red Blood Cells % 0 %; Platelet Count 233 10^3/cmm (157-399); Red Blood Count 4.92 10^6/uL (3.85-5.65); Red Cell Distribution Width 14.1 % (12.1-15.1); White Blood Count 10.21 10^3/uL (3.29-11.43)
[2023-03-02 13:50] LABS: Alanine Aminotransferase 56 U/L (0-41); Albumin Level 4.6 g/dL (3.5-5.2); Alkaline Phosphatase 122 U/L (40-130); Anion Gap 21.5 (5-19); Aspartate Amino Transferase 27 U/L (0-40); Blood Urea Nitrogen 10 mg/dL (6-20); Calcium 9.4 mg/dL (8.5-10.5); Carbon Dioxide 23 mmol/L (22-29); Chloride 93 mmol/L (98-107); Globulin 3.3 g/dL (1.3-4.6); Glomerular Filtration Rate 94.4 mL/min (90-130); Glucose 128 mg/dL (65-115); Osmolality Calculated 279 mOsm/kg (285-295); Potassium 3.5 mmol/L (3.5-5.1); Sodium 134 mmol/L (136-145); Total Bilirubin 0.4 mg/dL (0.15-1.2); Total Protein 7.9 g/dL (6.6-8.7)
[2023-03-02 14:56] VITALS: PULSE 93
[2023-03-02 15:14] VITALS: RESP 18; O2SAT 90
[2023-03-02] MEDS: morphine 4 mg/mL SDV 1 mL IVP (15:14)
== END 2023-03-02 16:25 | disposition home or self-care (01) ==
PROVIDERS: Emergency Provider Family Medicine; PCP Internal Medicine
DX: M62.838 Other muscle spasm (principal); I10 Essential (primary) hypertension; G82.20 Paraplegia, unspecified; F17.210 Nicotine dependence, cigarettes, uncomplicated
CPT/HCPCS: 36415; 80053; 85025; 93005; 96374; 96375; 99284; J2270; J2405; J7030

== ENCOUNTER → 2023-03-09 12:57 | Outpatient (BNVA) | payer MEDICARE, MEDICAID, SELFPAY | PROVIDERS: PCP Internal Medicine; Visit Provider Nurse Practitioner Family | DX: I96 Gangrene, not elsewhere classified (principal); L89.324 Pressure ulcer of left buttock, stage 4 | CPT/HCPCS: 11042; A6210; A6219 ==

== ENCOUNTER → 2023-04-13 12:57 | Outpatient (BNVA) | payer MEDICARE, MEDICAID, SELFPAY | PROVIDERS: PCP Internal Medicine; Visit Provider Nurse Practitioner Family | DX: L89.324 Pressure ulcer of left buttock, stage 4 (principal) | CPT/HCPCS: 11042; A6210 ==

== ENCOUNTER → 2023-05-13 15:29 | Outpatient (BNVA) | payer MEDICARE, MEDICAID, SELFPAY | PROVIDERS: PCP Internal Medicine; Visit Provider Thoracic Surgery (Cardiothoracic Vascular Surgery) | DX: L89.324 Pressure ulcer of left buttock, stage 4 (principal) | CPT/HCPCS: 97597; A6210 ==

== ENCOUNTER → 2023-06-11 13:40 | Outpatient (BNVA) | payer MEDICARE, MEDICAID, SELFPAY | PROVIDERS: PCP Internal Medicine; Visit Provider Thoracic Surgery (Cardiothoracic Vascular Surgery) | DX: L89.324 Pressure ulcer of left buttock, stage 4 (principal) | CPT/HCPCS: 11042; A6210; A6219 ==

== ENCOUNTER → 2023-07-08 13:26 | Outpatient (BNVA) | payer MEDICARE, MEDICAID, SELFPAY | PROVIDERS: PCP Internal Medicine; Visit Provider Thoracic Surgery (Cardiothoracic Vascular Surgery) | DX: L89.324 Pressure ulcer of left buttock, stage 4 (principal) | CPT/HCPCS: 11042 ==

== ENCOUNTER → 2023-08-05 10:39 | Outpatient (BNVA) | payer MEDICARE, MEDICAID, SELFPAY | PROVIDERS: PCP Internal Medicine; Visit Provider Thoracic Surgery (Cardiothoracic Vascular Surgery) | DX: L89.324 Pressure ulcer of left buttock, stage 4 (principal) | CPT/HCPCS: 97597; A6219 ==

== ENCOUNTER 2023-08-06 09:49 | Outpatient (CLI) | payer MEDICARE, MEDICAID, SELFPAY ==
[2023-08-06 10:12] LABS: Basophils % 0.6 %; Eosinophils # 0.3 10^3/uL (0.0-0.8); Eosinophils % 4.5 %; Hematocrit 43.4 % (37-53); Lymphocytes # 1.8 10^3/uL (0.8-4.8); Lymphocytes % 25.2 %; Mean Corpuscular HGB Conc 33.9 g/dL (30-55); Mean Corpuscular Hemoglobin 31.1 pg (27-33); Mean Corpuscular Volume 91.9 fl (82-101); Mean Platelet Volume 10.4 fL (7.4-10.4); Monocytes # 0.6 10^3/uL (0.2-0.9); Monocytes % 8.3 %; Neutrophils # 4.23 10^3/uL (1.8-7.7); Neutrophils % 60.8 %; Nucleated Red Blood Cells % 0 %; Platelet Count 227 10^3/cmm (157-399); Red Blood Count 4.72 10^6/uL (3.85-5.65); Red Cell Distribution Width 13.5 % (12.1-15.1); White Blood Count 6.95 10^3/uL (3.29-11.43)
[2023-08-06 10:20] LABS: Alanine Aminotransferase 32 U/L (0-41); Albumin Level 4.2 g/dL (3.5-5.2); Alkaline Phosphatase 110 U/L (40-130); Anion Gap 19.8 (5-19); Aspartate Amino Transferase 21 U/L (0-40); Blood Urea Nitrogen 15 mg/dL (6-20); Carbon Dioxide 24 mmol/L (22-29); Chloride 97 mmol/L (98-107); Globulin 3.2 g/dL (1.3-4.6); Glomerular Filtration Rate 83.6 mL/min (90-130); Glucose 137 mg/dL (65-115); Osmolality Calculated 287 mOsm/kg (285-295); Potassium 3.8 mmol/L (3.5-5.1); Sodium 137 mmol/L (136-145); Total Bilirubin 0.3 mg/dL (0.15-1.2); Total Protein 7.4 g/dL (6.6-8.7)
[2023-08-06 10:34] LABS: Prealbumin 20.7 mg/dL (20-40)
== END 2023-08-06 09:50 | disposition home or self-care (01) ==
LOC: LAB 09:52
PROVIDERS: PCP Internal Medicine; Visit Provider Thoracic Surgery (Cardiothoracic Vascular Surgery)
DX: L89.324 Pressure ulcer of left buttock, stage 4 (principal)
CPT/HCPCS: 80053; 84134; 85025

== ENCOUNTER → 2023-09-08 15:44 | Outpatient (BNVA) | payer MEDICARE, MEDICAID, SELFPAY | PROVIDERS: PCP Internal Medicine; Visit Provider Thoracic Surgery (Cardiothoracic Vascular Surgery) | DX: I96 Gangrene, not elsewhere classified (principal); L89.324 Pressure ulcer of left buttock, stage 4 | CPT/HCPCS: 97597 ==

== ENCOUNTER 2023-09-28 17:11 | Outpatient (CLI) | payer MEDICARE, MEDICAID, SELFPAY ==
[2023-09-28 20:00] LABS: Estmated Average Glucose 169; Hemoglobin A1C 7.5 % (4.0-6.0)
== END 2023-09-28 17:12 | disposition home or self-care (01) ==
LOC: LAB 17:12
PROVIDERS: PCP Internal Medicine; Visit Provider Thoracic Surgery (Cardiothoracic Vascular Surgery)
DX: E11.9 Type 2 diabetes mellitus without complications (principal)
CPT/HCPCS: 83036

== ENCOUNTER → 2023-10-06 09:26 | Outpatient (BNVA) | payer MEDICARE, MEDICAID, SELFPAY | PROVIDERS: PCP Internal Medicine; Visit Provider Thoracic Surgery (Cardiothoracic Vascular Surgery) | DX: L89.324 Pressure ulcer of left buttock, stage 4 (principal) | CPT/HCPCS: 97597; A6210 ==

== ENCOUNTER → 2023-11-03 10:42 | Outpatient (BNVA) | payer MEDICARE, MEDICAID, SELFPAY | PROVIDERS: PCP Internal Medicine; Visit Provider Thoracic Surgery (Cardiothoracic Vascular Surgery) | DX: L89.324 Pressure ulcer of left buttock, stage 4 (principal) | CPT/HCPCS: 97597; A6210 ==

== ENCOUNTER → 2023-12-01 12:56 | Outpatient (BNVA) | payer MEDICARE, MEDICAID, SELFPAY | PROVIDERS: PCP Internal Medicine; Visit Provider Thoracic Surgery (Cardiothoracic Vascular Surgery) | DX: L89.324 Pressure ulcer of left buttock, stage 4 (principal) | CPT/HCPCS: 97597; A6210 ==

== ENCOUNTER → 2023-12-29 12:56 | Outpatient (BNVA) | payer MEDICARE, MEDICAID, SELFPAY | PROVIDERS: PCP Internal Medicine; Visit Provider Nurse Practitioner Family | DX: L89.324 Pressure ulcer of left buttock, stage 4 (principal) | CPT/HCPCS: 11042; A6210 ==

== ENCOUNTER → 2024-02-05 08:42 | Outpatient (BNVA) | payer MEDICARE, MEDICAID, SELFPAY | PROVIDERS: PCP Internal Medicine; Visit Provider Thoracic Surgery (Cardiothoracic Vascular Surgery) | DX: L89.324 Pressure ulcer of left buttock, stage 4 (principal) | CPT/HCPCS: 97597; A6210; A6220 ==

== ENCOUNTER 2024-03-10 06:00 | Outpatient (CLI) | payer MEDICARE, MEDICAID, SELFPAY | END 2024-03-10 06:01 | disposition home or self-care (01) | LOC: RAD 06-02 07:13 | PROVIDERS: PCP Internal Medicine; Visit Provider Thoracic Surgery (Cardiothoracic Vascular Surgery) | DX: L89.324 Pressure ulcer of left buttock, stage 4 | CPT/HCPCS: 97597 ==

== ENCOUNTER 2024-03-22 06:00 | Outpatient (RCR) | payer MEDICARE, MEDICAID, SELFPAY | END 2024-04-21 23:59 | disposition home or self-care (01) | LOC: SOT 06:00 | PROVIDERS: PCP Internal Medicine; Visit Provider Internal Medicine | DX: G82.20 Paraplegia, unspecified (principal); G83.9 Paralytic syndrome, unspecified | CPT/HCPCS: 97167 ==

== ENCOUNTER → 2024-04-07 08:39 | Outpatient (BNVA) | payer MEDICARE, MEDICAID, SELFPAY | PROVIDERS: Visit Provider Thoracic Surgery (Cardiothoracic Vascular Surgery) | DX: L89.324 Pressure ulcer of left buttock, stage 4 (principal) | CPT/HCPCS: 97597; A6210 ==

== ENCOUNTER 2024-04-15 11:29 | Outpatient (CLI) | payer MEDICARE, MEDICAID, SELFPAY ==
[2024-04-15 12:00] LABS: Basophils # 0.1 10^3/uL (0.0-0.1); Basophils % 0.8 %; Eosinophils # 0.4 10^3/uL (0.0-0.8); Hematocrit 44.9 % (37-53); Lymphocytes # 1.8 10^3/uL (0.8-4.8); Lymphocytes % 21.5 %; Mean Corpuscular HGB Conc 34.1 g/dL (30-55); Mean Corpuscular Hemoglobin 31.8 pg (27-33); Mean Corpuscular Volume 93.3 fl (82-101); Mean Platelet Volume 9.9 fL (7.4-10.4); Monocytes # 0.5 10^3/uL (0.2-0.9); Monocytes % 6.4 %; Neutrophils # 5.55 10^3/uL (1.8-7.7); Neutrophils % 65.9 %; Nucleated Red Blood Cells % 0 %; Platelet Count 175 10^3/cmm (157-399); Red Blood Count 4.81 10^6/uL (3.85-5.65); Red Cell Distribution Width 13.2 % (12.1-15.1); White Blood Count 8.42 10^3/uL (3.29-11.43)
[2024-04-15 12:18] LABS: Alanine Aminotransferase 88 U/L (0-41); Albumin Level 4.1 g/dL (3.5-5.2); Alkaline Phosphatase 101 U/L (40-130); Aspartate Amino Transferase 58 U/L (0-40); Blood Urea Nitrogen 10 mg/dL (6-20); C Reactive Protein 22.5 mg/L (0.0-4.9); Calcium 8.2 mg/dL (8.5-10.5); Carbon Dioxide 26 mmol/L (22-29); Chloride 92 mmol/L (98-107); Globulin 2.8 g/dL (1.3-4.6); Glomerular Filtration Rate 93.9 mL/min (90-130); Glucose 307 mg/dL (65-115); Osmolality Calculated 281 mOsm/kg (285-295); Sodium 130 mmol/L (136-145); Total Bilirubin 0.4 mg/dL (0.15-1.2); Total Protein 6.9 g/dL (6.6-8.7)
[2024-04-15 12:19] LABS: Anion Gap 15.8 (5-19); Potassium 3.8 mmol/L (3.5-5.1)
[2024-04-15 12:23] LABS: Estmated Average Glucose 212
[2024-04-15 12:24] LABS: Prealbumin 21.3 mg/dL (20-40)
[2024-04-15 12:45] LABS: Erythrocyte Sedimentation Rate 12 mm/hr (0-10)
== END 2024-04-15 11:30 | disposition home or self-care (01) ==
LOC: LAB 11:31
PROVIDERS: PCP Internal Medicine; Visit Provider Thoracic Surgery (Cardiothoracic Vascular Surgery)
DX: E11.9 Type 2 diabetes mellitus without complications (principal); L89.324 Pressure ulcer of left buttock, stage 4
CPT/HCPCS: 36415; 80053; 83036; 84134; 85025; 85651; 86140

== ENCOUNTER → 2024-05-12 08:56 | Outpatient (BNVA) | payer MEDICARE, MEDICAID, SELFPAY | PROVIDERS: PCP Internal Medicine; Visit Provider Thoracic Surgery (Cardiothoracic Vascular Surgery) | DX: L89.324 Pressure ulcer of left buttock, stage 4 (principal) | CPT/HCPCS: 97597; A6210 ==

== ENCOUNTER 2024-05-17 16:29 | Outpatient (CLI) | payer MEDICARE, MEDICAID, SELFPAY ==
--- NOTE | 2024-05-17 16:36 | CTR_ITS ---
PROCEDURE INFORMATION: Exam: CT Abdomen And Pelvis With Contrast Exam date and time: 05/17/2024 4:44 PM Age: 38 years old Clinical indication: Condition or disease; Other: Ressure ulcer of left buttock, stage 4; Prior surgery; Surgery date: 6+ months; Surgery type: Back, gb, blood clot filter; Additional info: L89.324 - pressure ulcer of left buttock, stage 4 TECHNIQUE: Imaging protocol: Computed tomography of the abdomen and pelvis with contrast. Radiation optimization: All CT scans at this facility use at least one of these dose optimization techniques: automated exposure control; mA and/or kV adjustment per patient size (includes targeted exams where dose is matched to clinical indication); or iterative reconstruction. Contrast material: OMNI 350; Contrast volume: 100 ml; Contrast route: INTRAVENOUS (IV); COMPARISON: CT abdomen pelvis wo con [id number] 09/19/2022 5:40 PM RADIATION DOSE METRICS: Total DLP (mGy-cm): 559.63 FINDINGS: Lungs: Lung bases are clear as visualized. Heart: Base of heart is unremarkable as visualized. Liver: Hepatic steatosis diffusely. Gallbladder and biliary ducts: Status post cholecystectomy. Pancreas: Fatty atrophy of the pancreas. Spleen: Normal. No splenomegaly. Adrenal glands: Normal. No mass. Kidneys and ureters: Benign exophytic left renal cyst. Stomach and bowel: Mild colonic stool burden. Appendix: No evidence of appendicitis. Intraperitoneal space: Unremarkable. No free air. No significant fluid collection. Vasculature: IVC filter is present, terminates at the level of the renal vein anastomosis. Lymph nodes: Unremarkable. No enlarged lymph nodes. Urinary bladder: Decompressed bladder, however alexander appear thickened despite being decompressed. Reproductive: Unremarkable as visualized. Bones/joints: Degenerative changes of the visualized osseous structures. Postsurgical change of the thoracolumbar spine without evidence for acute surgical complication. Stable deformity of the left inferior pubic ramus. Soft tissues: Again demonstrated is cutaneous and subcutaneous defect extending through the left gluteal fat with soft tissue thickening adjacent the deformed left inferior pubic ramus posteriorly. CT/CT abdomen pelvis w con* [id number] IMPRESSION: 1. Stable appearing left buttock pressure ulceration from prior cross-sectional evaluation with adjacent left pubic ramus deformity. 2. IVC is at the level of the renal veins, appears to have migrated cranially a few mm from prior comparison. Consider interventional radiology consultation for assessment and management. 3. Decompressed bladder with thickened alexander, correlate for cystitis. COMMENTS: 1. For patients with an IVC filter, recommend assessment for a management plan for the patient's IVC filter. If there is no established management plan, recommend referral to an interventional clinician on a nonemergent basis for evaluation. 2. Consistent with the [employer]'s Incidental Findings Committee white paper (J Am Maury Radiol 2018): Any incidental renal lesion less than 1 cm or classified as too small to characterize, or any incidental cystic renal lesion characterized as simple-appearing, is likely benign. No follow-up imaging is recommended for these lesions per consensus recommendations based on imaging criteria.
[2024-05-17] MEDS: iohexol 350 mg/mL 500 mL Btl (per mL) IV (16:56)
== END 2024-05-17 16:30 | disposition home or self-care (01) ==
LOC: RAD 16:31
PROVIDERS: PCP Internal Medicine; Visit Provider Thoracic Surgery (Cardiothoracic Vascular Surgery)
DX: L89.324 Pressure ulcer of left buttock, stage 4 (principal); K76.0 Fatty (change of) liver, not elsewhere classified; K86.89 Other specified diseases of pancreas; N28.1 Cyst of kidney, acquired; N32.89 Other specified disorders of bladder; Z90.49 Acquired absence of other specified parts of digestive tract; G82.20 Paraplegia, unspecified
CPT/HCPCS: 74177

== ENCOUNTER → 2024-06-09 08:53 | Outpatient (BNVA) | payer MEDICARE, MEDICAID, SELFPAY | PROVIDERS: PCP Internal Medicine; Visit Provider Thoracic Surgery (Cardiothoracic Vascular Surgery) | DX: I96 Gangrene, not elsewhere classified (principal); L89.324 Pressure ulcer of left buttock, stage 4 | CPT/HCPCS: 99212; A6210 ==

== ENCOUNTER → 2024-07-07 08:52 | Outpatient (BNVA) | payer MEDICARE, MEDICAID, SELFPAY | PROVIDERS: PCP Internal Medicine; Visit Provider Thoracic Surgery (Cardiothoracic Vascular Surgery) | DX: L89.324 Pressure ulcer of left buttock, stage 4 (principal) | CPT/HCPCS: 97597; A6210; A6219 ==

== ENCOUNTER → 2024-08-18 08:37 | Outpatient (BNVA) | payer MEDICARE, MEDICAID, SELFPAY | PROVIDERS: PCP Internal Medicine; Visit Provider Thoracic Surgery (Cardiothoracic Vascular Surgery) | DX: I96 Gangrene, not elsewhere classified (principal); L89.324 Pressure ulcer of left buttock, stage 4 | CPT/HCPCS: 97597; A6210 ==

== ENCOUNTER → 2024-09-15 09:59 | Outpatient (BNVA) | payer MEDICARE, MEDICAID, SELFPAY | PROVIDERS: PCP Internal Medicine; Visit Provider Thoracic Surgery (Cardiothoracic Vascular Surgery) | DX: L89.324 Pressure ulcer of left buttock, stage 4 (principal) | CPT/HCPCS: 97597; A6210 ==

== ENCOUNTER → 2024-10-13 08:58 | Outpatient (BNVA) | payer MEDICARE, MEDICAID, SELFPAY | PROVIDERS: PCP Internal Medicine; Visit Provider Thoracic Surgery (Cardiothoracic Vascular Surgery) | DX: I96 Gangrene, not elsewhere classified (principal); L89.324 Pressure ulcer of left buttock, stage 4 | CPT/HCPCS: 99213 ==

== ENCOUNTER 2024-10-25 07:16 | Emergency (ER) | payer MEDICARE, MEDICAID, SELFPAY ==
[2024-10-25] VITALS (146 sets, daily range): BP systolic 85–175; BP diastolic 54–125; PULSE 118–184; RESP 9–35; TEMP 37; O2SAT 86–100; BMI 27.3
--- NOTE | 2024-10-25 07:28 | XR_ITS ---
WS: [id number] XR chest 1V portable [id number] REASON FOR EXAM: dyspnea/cough FINDINGS: Properly positioned endotracheal tube. Nasogastric tube is within the gastric fundus. Thoracic aorta and heart size within normal limits. Linear opacities in both lower lung ozuna most compatible with atelectasis. Complex postoperative thoracolumbar spine. IVC filter. XR/XR chest 1V portable [id number] IMPRESSION: Endotracheal tube and nasogastric tube in proper position. Presumed multiple small areas of atelectasis in both lower lungs.
[2024-10-25 07:31] LABS: Glucose Point of Care 347 mg/dL (70-110)
[2024-10-25] MEDS: LORazepam 1 MG/0.5 ML injection 2 MG IVP ×2 (07:40)
[2024-10-25] MEDS: midazolam 1 mg/mL INJ 2 mL 2 MG IVP ×2 (07:43→09:49)
[2024-10-25] MEDS: etomidate 2 mg/mL INJ SDV 10 mL 30 MG IVP (07:49)
[2024-10-25] MEDS: vecuronium 10 mg SDV IVP (07:50)
--- NOTE | 2024-10-25 07:50 | PC.NURSE ---
ETOMIDATE WASTED WITH KELSEY ALANIS.
[2024-10-25] MEDS: levETIRAcetam 2,000 MG/200 ML PREMIX 400 MG IV (07:52)
[2024-10-25] MEDS: propofol 1,000 MG/100 ML INJ 17.15 MG IV (07:53)
--- NOTE | 2024-10-25 07:53 | ECG_ITS ---
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 Measurements Intervals Clemons Rate: 158 P: 0 SC: 0 QRS: 102 QRSD: 87 T: 40 QT: 293 QTc: 476 Interpretive Statements ATRIAL FLUTTER/TACHYCARDIA WITH RAPID VENTRICULAR RESPONSE RIGHT AXIS DEVIATION [QRS AXIS > 100] POSSIBLE RIGHT VENTRICULAR CONDUCTION DELAY [RSR (QR) IN V1/V2] CRITICAL TEST RESULT Compared to ECG 03/02/2023 12:25:05 Sinus tachycardia no longer present Electronically Signed On 10-26-2024 17:48:24 CDT by Henrietta Aguilar M.D. [id number] [id number]
--- NOTE | 2024-10-25 07:56 | CT_ITS ---
WS: [id number] CT ABDOMEN PELVIS TECHNIQUE: Contrast-enhanced CT of the abdomen and pelvis with coronal and sagittal reformatted images. CLINICAL INFORMATION: abd pain COMPARISON: CT 05/17/2024 DLP: 953.[address] scans at [facility] use at least one of these dose optimization techniques: automated exposure control; mA and/or kV adjustment per patient size (includes targeted exams where dose is matched to clinical indication); or iterative reconstruction. FINDINGS: Hepatomegaly. Fatty liver. Cholecystectomy. Thoracolumbar fusion hardware degrades images. Enteric tube in the stomach. Adrenal glands are normal. No hydronephrosis in either kidney. Consolidation in RIGHT lower lobe. Subsegmental atelectasis in the RIGHT middle lobe partially visualized. LEFT lung base is well aerated. Portal vein and splenic vein appear patent. Normal caliber abdominal aorta. Mild aortic calcification. Adrenal glands are normal. Normal renal parenchymal enhancement. No hydronephrosis. LEFT renal cyst. Celiac and SMA are patent. IVC filter is unchanged. Peña catheter. Sigmoid constipation. CT/CT abdomen pelvis w con* [id number] IMPRESSION: 1. Dense consolidation with partial collapse RIGHT lower lobe. This may be due to aspiration. Partially visualized subsegmental atelectasis and patchy opacit ies in the RIGHT middle lobe. 2. Hepatomegaly with fatty liver. 3. Enteric tube with tip in the stomach. 4. Sigmoid constipation. 5. Peña catheter. 6. LEFT buttock decubitus ulcer with underlying remodeling and dystrophic calc ification of the pubic rami has a chronic healed appearance unchanged since 4. No fluid collections. 7. No other acute findings.0
--- NOTE | 2024-10-25 07:56 | CT_ITS ---
WS: [id number] CT HEAD TECHNIQUE: Noncontrast CT of the head obtained from the skullbase to the vertex. CLINICAL INFORMATION: AMS/persisteant seizure COMPARISON: 2022 DLP: 1114.[address] scans at [facility] use at least one of these dose optimization techniques: automated exposure control; mA and/or kV adjustment per patient size (includes targeted exams where dose is matched to clinical indication); or iterative reconstruction. FINDINGS: No evidence of intracranial hemorrhage or mass effect. Ventricular system and basal cisterns are patent. Mild parenchymal volume loss. No extra-axial fluid collections. No evidence of mass or mass effect. Normal sosa-white differentiation. Paranasal sinuses and mastoid air cells are well aerated. .Normal visualized soft tissues. CT/CT head wo con* [id number] IMPRESSION: 1. No evidence of intracranial hemorrhage or mass effect. 2. No acute intracranial findings.
[2024-10-25 08:13] LABS: ABG PCO2 47.9 mmHg (35-45); ABG PH Result 7.24 (7.35-7.45); Alveolar-Arterial Oxygen Gradi 54.3 mmHg (5-10); Arterial Blood Gas Hematocrit 55.7 % (42-52); Base Excess ABG -7.5 mmol/L (-2.0-2.0); Blood Gas Allen Test Pos; Blood Gas Operator Identificat glc; Blood Gas Sample Site Radial, left; Blood Gas Sample Type Arterial; Carboxyhemoglobin < 0.3 %THgb (0.4-20.1); HCO3 ABG 20.3 mmol/L (22-26); HGB O2 Sat 97.5 % (95-100); Ionized Calcium Level - ABG 1.2 mmol/L (1.1-1.4); Methemoglobin 0.6 % (0.4-1.5); Oxygen Device VENT; PO2 FiO2 Ratio Arterial Blood 234; Potassium Level - ABG 3.5 mmol/L (3.5-5.0); Total Hemoglobin 18.2 g/dL (14-18)
[2024-10-25 08:27] LABS: Basophils # 0.1 10^3/uL (0.0-0.1); Basophils % 0.7 %; Eosinophils # 0.1 10^3/uL (0.0-0.8); Hematocrit 49.3 % (37-53); Lymphocytes # 1.4 10^3/uL (0.8-4.8); Lymphocytes % 14.3 %; Mean Corpuscular HGB Conc 35.3 g/dL (30-55); Mean Corpuscular Hemoglobin 32.3 pg (27-33); Mean Corpuscular Volume 91.6 fl (82-101); Mean Platelet Volume 10.3 fL (7.4-10.4); Monocytes # 0.4 10^3/uL (0.2-0.9); Monocytes % 3.9 %; Neutrophils # 7.52 10^3/uL (1.8-7.7); Neutrophils % 77.8 %; Nucleated Red Blood Cells % 0 %; Platelet Count 270 10^3/cmm (157-399); Red Blood Count 5.38 10^6/uL (3.85-5.65); Red Cell Distribution Width 13.4 % (12.1-15.1); White Blood Count 9.67 10^3/uL (3.29-11.43)
[2024-10-25 08:50] LABS: Ketone (Acetest) Serum Negative (Negative)
[2024-10-25 08:55] LABS: Alanine Aminotransferase 110 U/L (0-41); Albumin Level 5.2 g/dL (3.5-5.2); Alkaline Phosphatase 117 U/L (40-130); Anion Gap 46.7 (5-19); Aspartate Amino Transferase 81 U/L (0-40); Blood Urea Nitrogen 15 mg/dL (6-20); Calcium 10.7 mg/dL (8.5-10.5); Carbon Dioxide 16 mmol/L (22-29); Chloride 89 mmol/L (98-107); Creatinine Clr Calc Pharmacy 86.1525; Globulin 4.1 g/dL (1.3-4.6); Glomerular Filtration Rate 67.4 mL/min (90-130); Glucose 392 mg/dL (65-115); Lipase 43 U/L (13-60); Osmolality Calculated 323 mOsm/kg (285-295); Potassium 3.7 mmol/L (3.5-5.1); Sodium 148 mmol/L (136-145); Total Bilirubin 0.4 mg/dL (0.15-1.2); Total Protein 9.3 g/dL (6.6-8.7)
[2024-10-25] MEDS: piperacillin-tazobactam 3.375 GM in sodium chloride 0.9% (plus) 50 ML IV ×2 (09:22→18:19)
--- NOTE | 2024-10-25 09:31 | W.ED.NEUROSD ---
HPI - Neuro Symptoms/Deficit General: Chief Complaint: Nausea/Vomiting/Diarrhea Stated Complaint: N/V Time Seen by Provider: 10/25/24 07:27 History of Present Illness: 38-year-old male presents emergency room via EMS with complaints of Related Data Home Medications ?Medication ?Instructions ?Recorded ?Confirmed aspirin-caffeine 845 mg-65 mg oral 1 ea PO Q6H PRN Pain 03/04/20 09/23/22 powder packet (BC Pain Relief) bisacodyl 10 mg rectal suppository 10 mg SC DAILY PRN Constipation 08/16/22 09/23/22 hydrocodone 5 mg-acetaminophen 325 1 tab PO QID PRN Pain 09/20/22 09/23/22 mg tablet risperidone 0.5 mg tablet 0.5 mg PO BID 09/20/22 09/23/22 Previous Rx's ?Medication ?Instructions ?Recorded zolpidem 5 mg tablet (Ambien) 5 mg PO BEDTIME #30 tabs 06/17/21 levetiracetam 500 mg See Rx Instructions .Route 09/03/21 tablet,extended release 24 hr .COMPLEX #60 tabs trazodone 150 mg tablet 150 mg PO .qhs #90 tabs 09/23/21 pantoprazole 40 mg tablet,delayed 40 mg PO DAILY #90 tabs 12/19/21 release (Protonix) alprazolam 0.5 mg tablet 0.5 mg PO DAILY #30 tabs 02/26/22 duloxetine 30 mg capsule,delayed See Rx Instructions .Route 03/31/22 release .COMPLEX #90 caps ondansetron HCl 4 mg tablet See Rx Instructions .Route 03/31/22 .COMPLEX #30 tabs spironolactone 25 1 tab PO DAILY #90 tabs 03/31/22 mg-hydrochlorothiazide 25 mg tablet (Aldactazide) baclofen 20 mg tablet 60 mg (3 x 20 mg) PO BID #180 tabs 04/03/22 duloxetine 60 mg capsule,delayed 60 mg PO DAILY #90 caps 04/03/22 release varenicline tartrate 1 mg tablet 1 mg PO BID #180 tabs 04/21/22 glimepiride 4 mg tablet (Amaryl) 2 mg (1/2 x 4 mg) PO DAILY #180 09/22/22 tabs baclofen 20 mg tablet 60 mg (3 x 20 mg) PO BID #42 tabs 03/02/23 amoxicillin 500 mg tablet 500 mg PO BID #14 tabs 05/13/23 Allergies Allergy/AdvReac Type Severity Reaction Status Date / Time levothyroxine Allergy Unknown ALGY-Hives Verified 09/19/22 20:27 ceftriaxone (From Rocephin) Allergy ALGY-Hives Verified 04/03/22 14:39 levofloxacin (From Levaquin) Allergy ALGY-Hives Verified 09/19/22 20:27 [facility] PFSH: Medical History Basal cell carcinoma HTN (hypertension) Paraplegia 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 UTI (urinary tract infection) Wound abscess Surgical History Hx of cholecystectomy Previous back surgery S/P ankle ligament repair Family History Mother , at age 60 Chronic kidney disease (CKD) Father , at age 71 Natural with unknown cause Other Anemia CAD (coronary artery disease) Diabetes Hypertension Social History Smoking and tobacco/nicotine status: current every day tobacco/nicotine user Alcohol intake: current Alcohol intake frequency: holidays/special occasions only Substance/Drug Use: never Marital status: Current occupational status: disabled Course Vital Signs: Vital signs: Vital Signs Temperature 98.6 F 10/25/24 07:16 Pulse Rate 148 H 10/25/24 08:35 Respiratory Rate 22 H 10/25/24 08:30 Blood Pressure 142/96 10/25/24 08:35 Pulse Oximetry 96 10/25/24 08:35 Oxygen Delivery Me thod Room Air 10/25/24 07:16 Fraction of Inspir ed Oxygen 100 10/25/24 08:06 MDM - Neuro Symptoms/Deficit Lab Data 10/25/24 08:19 10/25/24 08:19 Radiology Impressions Chest X-Ray 10/25/24 07:28 IMPRESSION: Endotracheal tube and nasogastric tube in proper position. Presumed multiple small areas of atelectasis in both lower lungs. Laboratory Results WBC 9.67 10^3/uL (3.29-11.43) 10/25/24 08:19 RBC 5.38 10^6/uL (3.85-5.65) 10/25/24 08:19 Hgb 17.40 g/dL (11.27-16.99) H 10/25/24 08:19 Hct 49.3 % (37-53) 10/25/24 08:19 MCV 91.6 fl (82-101) 10/25/24 08:19 MCH 32.3 pg (27-33) 10/25/24 08:19 MCHC 35.3 g/dL (30-55) 10/25/24 08:19 RDW 13.4 % (12.1-15.1) 10/25/24 08:19 Plt Count 270 10^3/cmm (157-399) 10/25/24 08:19 MPV 10.3 fL (7.4-10.4) 10/25/24 08:19 Neut % (Auto) 77.8 % 10/25/24 08:19 Lymph % (Auto) 14.3 % 10/25/24 08:19 [place] % (Auto) 3.9 % 10/25/24 08:19 Eos % (Auto) 1.0 % 10/25/24 08:19 Baso % (Auto) 0.7 % 10/25/24 08:19 Neut # (Auto) 7.52 10^3/uL (1.8-7.7) 10/25/24 08:19 Lymph # (Auto) 1.4 10^3/uL (0.8-4.8) 10/25/24 08:19 [place] # (Auto) 0.4 10^3/uL (0.2-0.9) 10/25/24 08:19 Eos # (Auto) 0.1 10^3/uL (0.0-0.8) 10/25/24 08:19 Baso # (Auto) 0.1 10^3/uL (0.0-0.1) 10/25/24 08:19 Nucleated RBC % (auto) 0 % 10/25/24 08:19 Nucleated RBCs # 0.0 /100WBC 10/25/24 08:19 Specimen Type Arterial 10/25/24 08:04 Sample Site Radial, left 10/25/24 08:04 ABG pH 7.24 (7.35-7.45) L 10/25/24 08:04 ABG pCO2 47.9 mmHg (35-45) H 10/25/24 08:04 ABG pO2 234.0 mmHg (80.0-100.0) H 10/25/24 08:04 ABG PO2/FiO2 Ratio 234 10/25/24 08:04 ABG HCO3 20.3 mmol/L (22-26) L 10/25/24 08:04 ABG O2 Saturation 98.0 10/25/24 08:04 ABG Base Excess -7.5 mmol/L (-2.0-2.0) L 10/25/24 08:04 Ashok Test Pos 10/25/24 08:04 A-a O2 Gradient 54.3 mmHg (5-10) H 10/25/24 08:04 Hematocrit 55.7 % (42-52) H 10/25/24 08:04 Hgb O2 Saturation 97.5 % (95-100) 10/25/24 08:04 Carboxyhemoglobin < 0.3 %THgb (0.4-20.1) L 10/25/24 08:04 Methemoglobin 0.6 % (0.4-1.5) 10/25/24 08:04 Total Hemoglobin 18.2 g/dL (14-18) H 10/25/24 08:04 Sodium 142.0 mmol/L (131-143) 10/25/24 08:04 Potassium 3.5 mmol/L (3.5-5.0) 10/25/24 08:04 Glucose 430.0 mg/dL (70-115) H 10/25/24 08:04 Ionized Calcium 1.2 mmol/L (1.1-1.4) 10/25/24 08:04 O2 Delivery Device Vent 10/25/24 08:04 FiO2 100.0 % 10/25/24 08:04 Tidal Volume 0.50 10/25/24 08:04 PEEP 5.0 cmH20 10/25/24 08:04 Infant Room Teacher ID glc 10/25/24 08:04 Sodium 148 mmol/L (136-145) H 10/25/24 08:19 Potassium 3.7 mmol/L (3.5-5.1) 10/25/24 08:19 Chloride 89 mmol/L (98-107) L 10/25/24 08:19 Carbon Dioxide 16 mmol/L (22-29) L 10/25/24 08:19 Anion Gap 46.7 (5-19) H 10/25/24 08:19 BUN 15 mg/dL (6-20) 10/25/24 08:19 Creatinine 1.2 mg/dL (0.7-1.2) 10/25/24 08:19 GFR Calculation 67.4 mL/min (90-130) L 10/25/24 08:19 Glucose 392 mg/dL (65-115) H 10/25/24 08:19 POC Glucose 347 mg/dL (70-110) H 10/25/24 07:29 Calculated Osmolality 323 mOsm/kg (285-295) H 10/25/24 08:19 Calcium 10.7 mg/dL (8.5-10.5) H 10/25/24 08:19 Magnesium 2.0 mg/dL (1.7-2.3) 10/25/24 08:19 Total Bilirubin 0.4 mg/dL (0.15-1.2) 10/25/24 08:19 AST 81 U/L (0-40) H 10/25/24 08:19 ALT 110 U/L (0-41) H 10/25/24 08:19 Alkaline Phosphatase 117 U/L (40-130) 10/25/24 08:19 Total Protein 9.3 g/dL (6.6-8.7) H 10/25/24 08:19 Albumin 5.2 g/dL (3.5-5.2) 10/25/24 08:19 Globulin 4.1 g/dL (1.3-4.6) 10/25/24 08:19 Lipase 43 U/L (13-60) 10/25/24 08:19 Serum Ketones Negative (Negative) 10/25/24 08:19 Discharge Plan Discharge Condition: Stable Prescriptions: No Action duloxetine 60 mg capsule,delayed release(DR/EC) 60 mg PO DAILY Qty: 90 3RF baclofen 20 mg tablet 60 mg PO BID Qty: 180 12RF alprazolam 0.5 mg tablet 0.5 mg PO DAILY Qty: 30 5RF amoxicillin 500 mg tablet 500 mg PO BID Qty: 14 0RF zolpidem [Ambien] 5 mg tablet 5 mg PO BEDTIME Qty: 30 1RF levetiracetam 500 mg tablet extended release 24 hr See Rx Instructions .ROUTE .COMPLEX Qty: 60 11RF Dose Instruction: TAKE 2 TABLETS BY MOUTH DAILY Rx Instructions: TAKE 2 TABLETS BY MOUTH DAILY trazodone 150 mg tablet 150 mg PO .qhs Qty: 90 3RF pantoprazole [Protonix] 40 mg tablet,delayed release (DR/EC) 40 mg PO DAILY Qty: 90 3RF ondansetron HCl 4 mg tablet See Rx Instructions .ROUTE .COMPLEX Qty: 30 0RF Dose Instruction: TAKE 1 TABLET BY MOUTH EVERY 6 HOURS Rx Instructions: TAKE 1 TABLET BY MOUTH EVERY 6 HOURS duloxetine 30 mg capsule,delayed release(DR/EC) See Rx Instructions .ROUTE .COMPLEX Qty: 90 1RF Dose Instruction: TAKE 1 CAPSULE BY MOUTH EVERYDAY AT BEDTIME Rx Instructions: TAKE 1 CAPSULE BY MOUTH EVERYDAY AT BEDTIME spironolacton-hydrochlorothiaz [Aldactazide] 25-25 mg tablet 1 tab PO DAILY Qty: 90 3RF varenicline tartrate 1 mg tablet 1 mg PO BID Qty: 180 8RF BC Pain Relief 845-65 mg Powder In Packet 1 ea PO Q6H PRN (Reason: Pain) bisacodyl 10 mg Suppository 10 mg SC DAILY PRN (Reason: Constipation) baclofen 20 mg tablet 60 mg PO BID Qty: 42 0RF hydrocodone-acetaminophen 5-325 mg tablet 1 tab PO QID PRN (Reason: Pain) risperidone 0.5 mg tablet 0.5 mg PO BID Amaryl 4 mg tablet 2 mg PO DAILY Qty: 180 3RF Rx Instructions: administer with breakfast Referrals: Broderick Pope MD [Primary Care Provider, Internal Medicine] Print Language: Icelandic Coding Level of Care Code ED Loan Examiner for Amarjit Cancino
--- NOTE | 2024-10-25 09:39 | PM.CONSULT ---
Providers/Reason For Consult Consulting Physician/Specialty*: Jose Meng MD neurology and epilepsy Reason for Consult*: Status epilepticus Primary Care Provider: Broderick Pope MD History of Present Illness History of Present Illness Nikko Aparicio is a 38 year old male with a past medical history of paraplegia, indwelling catheter, hypertension, stage IV ischial wound the patient was admitted in 2022 for the management of sepsis, acute urinary retention, patient was having significant withdrawal, he had maxed out on Precedex, was not responding appropriately to I.V Ativan's, he was extremely violent agitated and a decision was made to intubate the patient and put on mechanical ventilation the patient was successfully intubated and was subsequently placed on mechanical ventilation, he was also placed on propofol fentanyl and Versed. The patient presented to the emergency department after inability to take his medications secondary to nausea and vomiting with abdominal distention and reported seizures requiring intubation and sedation on propofol. The patient was also given Ativan. Due to seizures and decreased level consciousness neurology consult was obtained. Upon evaluation the patient is still intubated but awake and moving his head. Patient squeeze my hands with his left and right hand to command. Pupils 6 mm but reactive to light. Deep tendon reflex revealed plantar responses bilaterally. Patient breathing over the ventilator despite sedation. There is no obvious clinical signs of active seizure activity at this time. Agree with patient obtaining imaging studies of his head and abdomen as ordered by ER physician followed by attempted extubation. Will plan to obtain portable EEG at bedside on 10/25/2024. Recommend using Valium 2 mg to 5 mg IV every 8 hours for spasticity and to minimize withdrawal from Xanax, Ambien and baclofen until patient able to resume oral medications. Agree with IV Keppra load and continue Keppra IV 500 mg every 12 hours and continue seizure precautions per hospital protocol and state law. Agree with workup for possible bowel obstruction. Drug allergies: Levothyroxine which resulted in hives Ceftriaxone (from Rocephin) which resulted in hives Levaquin (levofloxacin) which resulted in hives Current medications: Xanax 0.5 mg p.o. daily Ambien 5 mg p.o. nightly Risperidone 0.5 mg p.o. twice daily Trazodone 150 mg p.o. nightly Varenicline 1 mg p.o. twice daily Amaryl 2 mg p.o. daily Amoxicillin 500 mg p.o. twice daily Baclofen 60 mg p.o. twice daily Baclofen 20 mg p.o. twice daily Cymbalta 60 mg p.o. daily Hydrocodone/acetaminophen 1 p.o. 4 times daily as needed for pain Keppra XR 500 mg p.o. twice daily Zofran 4 mg to use as directed Protonix 40 mg p.o. daily Hydrochlorothiazide/spironolactone 25/25 mg p.o. daily Past medical history: Paraplegia with spasticity Status post spine surgery Hyperkalemia Type 2 diabetes mellitus Hypocalcemia Hypoalbuminemia Neurogenic bladder Chronic indwelling [place] Hypertension Tobacco use Gastroesophageal reflux disease Habits: There is report in the records of history of nicotine use Family history: Unable to obtain secondary to medical condition/intubation/seizures Review of Systems General: Reports: ROS unobtainable due to endotracheal tube and ROS unobtainable due to medical condition Medications/Allergies Home Medications ?Medication ?Instructions ?Recorded ?Confirmed ?Last Taken ?Type aspirin-caffeine 845 mg-65 mg oral 1 ea PO Q6H PRN Pain 03/04/20 09/23/22 04/05/20 History powder packet ( Pain Relief) zolpidem 5 mg tablet (Ambien) 5 mg PO BEDTIME #30 tabs 06/17/21 09/23/22 Unknown Rx levetiracetam 500 mg See Rx Instructions .Route 09/03/21 09/23/22 Unknown Rx tablet,extended release 24 hr .COMPLEX #60 tabs trazodone 150 mg tablet 150 mg PO .qhs #90 tabs 09/23/21 09/23/22 Unknown Rx pantoprazole 40 mg tablet,delayed 40 mg PO DAILY #90 tabs 12/19/21 09/23/22 Unknown Rx release (Protonix) alprazolam 0.5 mg tablet 0.5 mg PO DAILY #30 tabs 02/26/22 09/23/22 Unknown Rx duloxetine 30 mg capsule,delayed See Rx Instructions .Route 03/31/22 09/23/22 Unknown Rx release .COMPLEX #90 caps ondansetron HCl 4 mg tablet See Rx Instructions .Route 03/31/22 09/23/22 Unknown Rx .COMPLEX #30 tabs spironolactone 25 1 tab PO DAILY #90 tabs 03/31/22 09/23/22 Unknown Rx mg-hydrochlorothiazide 25 mg tablet (Aldactazide) baclofen 20 mg tablet 60 mg (3 x 20 mg) PO BID #180 tabs 04/03/22 09/23/22 Unknown Rx duloxetine 60 mg capsule,delayed 60 mg PO DAILY #90 caps 04/03/22 09/23/22 Unknown Rx release varenicline tartrate 1 mg tablet 1 mg PO BID #180 tabs 04/21/22 09/23/22 Unknown Rx bisacodyl 10 mg rectal suppository 10 mg [place] DAILY PRN Constipation 08/16/22 09/23/22 Unknown History hydrocodone 5 mg-acetaminophen 325 1 tab PO QID PRN Pain 09/20/22 09/23/22 Unknown History mg tablet risperidone 0.5 mg tablet 0.5 mg PO BID 09/20/22 09/23/22 Unknown History glimepiride 4 mg tablet (Amaryl) 2 mg (1/2 x 4 mg) PO DAILY #180 09/22/22 09/23/22 Unknown Rx tabs baclofen 20 mg tablet 60 mg (3 x 20 mg) PO BID #42 tabs 03/02/23 Unknown Rx amoxicillin 500 mg tablet 500 mg PO BID #14 tabs 05/13/23 05/13/23 Unknown Rx Allergies Allergy/AdvReac Type Severity Reaction Status Date / Time levothyroxine Allergy Unknown ALGY-Hives Verified 09/19/22 20:27 ceftriaxone (From Rocephin) Allergy ALGY-Hives Verified 04/03/22 14:39 levofloxacin (From Levaquin) Allergy ALGY-Hives Verified 09/19/22 20:27 Current Medications Generic Name Dose Route Start Last Admin Trade Name Freq PRN Reason Stop Dose Admin Propofol 1,000 mg in 100 mls @ 0 mls/hr 10/25/24 08:00 10/25/24 09:25 Diprivan IV 80 mcg/kg/min .Q0M CASEY 39.19 mls/hr Protocol Titration Per Protocol PFSH Acute PFSH: Medical History Basal cell carcinoma UTI (urinary tract infection) Wound abscess 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 HTN (hypertension) Paraplegia Surgical History Hx of cholecystectomy S/P ankle ligament repair Previous back surgery Family History Mother , at age 60 Chronic kidney disease (CKD) Father , at age 71 Natural with unknown cause Other Anemia CAD (coronary artery disease) Diabetes Hypertension Social History Smoking and tobacco/nicotine status: current every day tobacco/nicotine user Alcohol intake: current Alcohol intake frequency: holidays/special occasions only Substance/Drug Use: never Marital status: Current occupational status: disabled Vitals/I&O/Wt Last Vital Signs Temp 98.6 F 10/25/24 07:16 Pulse 148 H 10/25/24 08:35 Resp 22 H 10/25/24 08:30 BP 142/96 10/25/24 08:35 Pulse Ox 96 10/25/24 08:35 O2 Del Method Room Air 10/25/24 07:16 FiO2 100 10/25/24 08:06 10/24/24 10/25/24 10/25/24 22:59 06:59 14:59 Intake Total 238.173 / 238.173 Balance 238.173 / 238.173 Weight last 48 hrs Weight 180 lb Physical Exam Narrative: The patient remains intubated. He is on sedation. But awake and moving his head [id number] and looking in my direction during the examination. Patient does follow commands with his hands and squeezes to command with a either hand. Pupils 6 mm round reactive to light and accommodation. Extraocular movements difficult to assess. I did not appreciate any obvious facial weakness. Patient is intubated and is breathing over the ventilator. Motor testing patient will squeeze my hands to command. Plantar responses flexor bilaterally. There was no clonus. Sensory examination patient moved his feet slightly to tactile stimuli. Throat clear. Lungs revealed no obvious wheezing. Heart regular rhythm and rate. Extremities were negative for cyanosis. Data 10/25/24 08:19 10/25/24 08:19 Micro: Microbiology 10/25/24 08:46 Blood Culture - Preliminary Blood SPECIMEN COLLECTED 10/25/24 08:19 Blood Culture - Preliminary Blood SPECIMEN COLLECTED A&P Assessment and plan (1) Status epilepticus: Impression: 1. Status epilepticus requiring intubation and IV sedation and IV Keppra, patient currently arousable with no active signs of seizures clinically 2. Severe abdominal distention with concerns for bowel obstruction 3. History of spinal surgery with paraplegia and lower extremity spasticity 4. Gastroesophageal reflux disease Plan: 1. Agree with patient obtaining imaging studies of his head and abdomen as ordered by ER physician followed by attempted extubation. 2. Will plan to obtain portable EEG at bedside on 10/25/2024. 3. Recommend using Valium 2 mg to 5 mg IV every 8 hours for spasticity and to minimize withdrawal from Xanax, Ambien and baclofen until patient able to resume oral medications. 4. Agree with IV Keppra load and continue Keppra IV 500 mg every 12 hours 5. Continue seizure precautions per hospital protocol and state law. 6. Agree with workup for possible bowel obstruction 7. Agree with evaluation for possible aspiration pneumonia PDMP PDMP Reviewed: Not Reviewed Consult Attestations Medical Necessity Statement: Patient seen by neurology for status epilepticus requiring intubation and sedation and IV Keppra Coding Level of Care Code 43537 Diagnoses Status epilepticus G40.901
--- NOTE | 2024-10-25 09:49 | ED_ITS ---
HPI - Seizure 2 General: Chief Complaint: Nausea/Vomiting/Diarrhea Stated Complaint: N/V Time Seen by Provider: 10/25/24 07:27 History of Present Illness: HPI Narrative: 38-year-old male presents emergency room with complaints of nausea vomiting diarrhea for the last several days. EMS was called out for that complaint shortly after arrival here he began seizing. He has a history of a T10 cord injury. He is on baclofen and Keppra. He has not been able to keep any of his medicines on the last few days. Shortly after arriving here he began to seize he was given multiple doses of Ativan and Versed and ultimately intubated because of sustained hypoxia. First blood gas showed a pH of 7.23 unable to get any other history than what we got from EMS Related Data Home Medications ?Medication ?Instructions ?Recorded ?Confirmed aspirin-caffeine 845 mg-65 mg oral 1 ea PO Q6H PRN Jaxon n 03/04/20 10/25/24 powder packet (BC Pain Relief) bisacodyl 10 mg rectal suppository 10 mg ID DAILY PRN Constipation 08/16/22 10/25/24 hydrocodone 5 mg-acetaminophen 325 1 tab PO QID PRN Pa in 09/20/22 10/25/24 mg tablet alprazolam 0.5 mg tablet 0.5 mg PO BID 10/25/2410/25 baclofen 20 mg tablet 40 mg PO BID 10/25/24 duloxetine 60 mg capsule,delayed 60 mg PO QPM 10/25/24 10/25/24 release glimepiride 4 mg tablet 4 mg PO BID 10/25/24 5 levetiracetam 500 mg 500 mg PO BID 10/25/2410/25 tablet,extended release 24 hr ondansetron HCl 4 mg tablet 4 mg PO .Q4-6H PRN Nausea 10/25/24 10/25/24 spironolactone 25 1 tab PO DAILY 10/25/2412/14 mg-hydrochlorothiazide 25 mg tablet Previous Rx's ?Medication ?Instructions ?Recorded trazodone 150 mg tablet 150 mg PO .qhs #90 tabs 10/11 pantoprazole 40 mg tablet,delayed 40 mg PO DAILY #90 t abs 12/19/21 release (Protonix) Allergies Allergy/AdvReac Type Severity Reaction Status Date / Time levothyroxine Allergy Unknown ALGY-Hives Verified 09/19/22 20:27 ceftriaxone (From Rocephin) Allergy ALGY-Hives Verified 04/03/22 14:39 levofloxacin (From Levaquin) Allergy ALGY-Hives Verified 09/19/22 20:27 Review of Systems 2 General: Reports: ROS unobtainable due to medical condition PFSH ED 2 PFSH: Medical History Basal cell carcinoma UTI (urinary tract infection) Wound abscess 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 HTN (hypertension) Paraplegia Surgical History Hx of cholecystectomy S/P ankle ligament repair Previous back surgery Family History Mother , at age 60 Chronic kidney disease (CKD) Father , at age 71 Natural with unknown cause Other Anemia CAD (coronary artery disease) Diabetes Hypertension Social History Smoking and tobacco/nicotine status: current every day tobacco/nicotine user Alcohol intake: current Alcohol intake frequency: holidays/special occasions only Substance/Drug Use: never Marital status: Current occupational status: disabled Physical Exam 2 HENMT: COMMON NORMALS: normocephalic, atraumatic and hearing grossly normal bilaterally HEAD & SCALP: normocephalic and atraumatic Resp: EFFORT & INSPECTION: Yes abnormal respiratory pattern and Yes tachypneic Cardio: RATE: tachycardic Extremity: COMMON NORMALS: normal to inspection, capillary refill normal, no clubbing, cyanosis or edema, no calf tenderness and no pedal edema Neuro: OTHER: Patient actively seizing Procedures Intubation sedative: Etomidate Mg Given: 30 paralytic: Vecuronium Mg Given: 10 Laryngoscope: fiber optic video scope ET Tube Size: 8 ET Tube Uncuffed: No Tube Secured Depth (cm): 22 Tube Secured Location: teeth Tube Placement Confirmation: visualized tube passing through cords, equal breath sounds bilaterally, no breath sounds over epigastrium and confirmation by capnometry Patient Tolerated Procedure: well Intubation Complications: none Additional Comments: At the time of intubation large amount of gastric context the hypopharynx. This was suctioned in order to visualize the cords. After suctioning was completed ET tube placed further suctioning done after intubation. After chest x-ray ET tube was advanced 2 cm. Course 2 Vital Signs: Vital signs: Vital Signs Temperature 98.6 F 10/25/24 07:16 Pulse Rate 142 H 10/25/24 23:01 Respiratory Rate 24 H 10/25/24 19:34 Blood Pressure 104/78 10/25/24 23:01 Pulse Oximetry 94 10/25/24 23:01 Oxygen Delivery Me thod Mechanical Ventil ation 10/25/24 20:00 Fraction of Inspir ed Oxygen 100 10/25/24 19:34 MDM - Seizure MDM Narrative Medical decision making narrative: 38-year-old male presents emergency room with status epilepticus shortly after arrival. Multiple doses of Ativan and Versed did not completely stop his seizures. Patient is persistently hypoxic multiple decision to intubate at the time of intubation there is a large amount of gastric contents in the hypopharynx that were suctioned ET tube was placed and he was suctioned further. Prior to arrival EMS had noted significant amount of vomiting and his complaint from the patient which was primarily called out for. OG was placed the ET tube there is a large amount of gastric contents suctioned from the lungs Zosyn started for aspiration pneumonia initial chest x-ray showed concerns for aspiration pneumonia confirmed on portions of the lung visualized with CT of the abdomen. We did test patient accepted at [facility] however was extended period of time before able to get a bed assignment. We titrated up on the propofol, eventually added fentanyl and Versed to achieve adequate sedation. Patient continued to have good urine output patient was given IV fluids which improved his tachycardia blood pressure remained stable despite high doses appropriate all. Ultimately a bed assignment was received and patient was transferred via ground ambulance to [facility] in [place]. Repeat blood gases showed improvement of the respiratory acidosis. Because of his prolonged seizures lactic acid would not contribute to management. Patient did undoubtedly have elevated lactic acid regardless and patient was treated with essentially the same protocols as sepsis guidelines including fluid bolus and antibiotics. Patient has decubitus ulcer on the left buttock. No other acute CT findings in the abdomen. Believe his seizures are combination of his persistent nausea and vomiting and not being able to take his scheduled baclofen or Keppra. Medical Records Attestation: I reviewed the patient's medical records. Lab Data Attestation: I reviewed the patient's lab results. 10/25/24 08:19 10/25/24 08:19 Labs: Radiology Impressions Chest X-Ray 10/25/24 07:28 IMPRESSION: Endotracheal tube and nasogastric tube in proper position. Presumed multiple small areas of atelectasis in both lower lungs. Abdomen/Pelvis CT 10/25/24 07:56 IMPRESSION: 1. Dense consolidation with partial collapse RIGHT lower lobe. This may be due to aspiration. Partially visualized subsegmental atelectasis and patchy opacities in the RIGHT middle lobe. 2. Hepatomegaly with fatty liver. 3. Enteric tube with tip in the stomach. 4. Sigmoid constipation. 5. Peña catheter. 6. LEFT buttock decubitus ulcer with underlying remodeling and dystrophic calcification of the pubic rami has a chronic healed appearance unchanged since 2023. No fluid collections. 7. No other acute findings.[address] Head CT 10/25/24 07:56 IMPRESSION: 1. No evidence of intracranial hemorrhage or mass effect. 2. No acute intracranial findings. Laboratory Results WBC 9.67 10^3/uL (3.29-11.43) 10/25/24 08:19 RBC 5.38 10^6/uL (3.85-5.65) 10/25/24 08:19 Hgb 17.40 g/dL (11.27-16.99) H 10/25/24 08:19 Hct 49.3 % (37-53) 10/25/24 08:19 MCV 91.6 fl (82-101) 10/25/24 08:19 MCH 32.3 pg (27-33) 10/25/24 08:19 MCHC 35.3 g/dL (30-55) 10/25/24 08:19 RDW 13.4 % (12.1-15.1) 10/25/24 08:19 Plt Count 270 10^3/cmm (157-399) 10/25/24 08:19 MPV 10.3 fL (7.4-10.4) 10/25/24 08:19 Neut % (Auto) 77.8 % 10/25/24 08:19 Lymph % (Auto) 14.3 % 10/25/24 08:19 [place] % (Auto) 3.9 % 10/25/24 08:19 Eos % (Auto) 1.0 % 10/25/24 08:19 Baso % (Auto) 0.7 % 10/25/24 08:19 Neut # (Auto) 7.52 10^3/uL (1.8-7.7) 10/25/24 08:19 Lymph # (Auto) 1.4 10^3/uL (0.8-4.8) 10/25/24 08:19 [place] # (Auto) 0.4 10^3/uL (0.2-0.9) 10/25/24 08:19 Eos # (Auto) 0.1 10^3/uL (0.0-0.8) 10/25/24 08:19 Baso # (Auto) 0.1 10^3/uL (0.0-0.1) 10/25/24 08:19 Nucleated RBC % (auto) 0 % 10/25/24 08:19 Nucleated RBCs # 0.0 /100WBC 10/25/24 08:19 Specimen Type Arterial 10/25/24 10:58 Sample Site Radial, right 10/25/24 10:58 ABG pH 7.40 (7.35-7.45) 10/25/24 10:58 ABG pCO2 36.9 mmHg (35-45) 10/25/24 10:58 ABG pO2 102.0 mmHg (80.0-100.0) H 10/25/24 10:58 ABG PO2/FiO2 Ratio 102 10/25/24 10:58 ABG HCO3 22.7 mmol/L (22-26) 10/25/24 10:58 ABG O2 Saturation 98.0 10/25/24 08:04 ABG Base Excess -1.7 mmol/L (-2.0-2.0) 10/25/24 10:58 Ashok Test Pos 10/25/24 10:58 A-a O2 Gradient 54.3 mmHg (5-10) H 10/25/24 08:04 Hematocrit 57.7 % (42-52) H 10/25/24 10:58 Hgb O2 Saturation 97.5 % (95-100) 10/25/24 08:04 Carboxyhemoglobin < 0.3 %THgb (0.4-20.1) L 10/25/24 08:04 Methemoglobin 0.6 % (0.4-1.5) 10/25/24 08:04 Total Hemoglobin 18.2 g/dL (14-18) H 10/25/24 08:04 Sodium 142.0 mmol/L (131-143) 10/25/24 08:04 Potassium 3.5 mmol/L (3.5-5.0) 10/25/24 08:04 Glucose 430.0 mg/dL (70-115) H 10/25/24 08:04 Ionized Calcium 1.2 mmol/L (1.1-1.4) 10/25/24 08:04 O2 Delivery Device Vent 10/25/24 10:58 FiO2 100.0 % 10/25/24 10:58 Tidal Volume 0.50 10/25/24 10:58 PEEP 8.0 cmH20 10/25/24 10:58 Hand Riveter ID Ny 10/25/24 10:58 Blood Gas Notified Time 1112 10/25/24 10:58 Sodium 148 mmol/L (136-145) H 10/25/24 08:19 Potassium 3.7 mmol/L (3.5-5.1) 10/25/24 08:19 Chloride 89 mmol/L (98-107) L 10/25/24 08:19 Carbon Dioxide 16 mmol/L (22-29) L 10/25/24 08:19 Anion Gap 46.7 (5-19) H 10/25/24 08:19 BUN 15 mg/dL (6-20) 10/25/24 08:19 Creatinine 1.2 mg/dL (0.7-1.2) 10/25/24 08:19 GFR Calculation 67.4 mL/min (90-130) L 10/25/24 08:19 Glucose 392 mg/dL (65-115) H 10/25/24 08:19 POC Glucose 286 mg/dL (70-110) H 10/25/24 17:38 Calculated Osmolality 323 mOsm/kg (285-295) H 10/25/24 08:19 Calcium 10.7 mg/dL (8.5-10.5) H 10/25/24 08:19 Magnesium 2.0 mg/dL (1.7-2.3) 10/25/24 08:19 Total Bilirubin 0.4 mg/dL (0.15-1.2) 10/25/24 08:19 AST 81 U/L (0-40) H 10/25/24 08:19 ALT 110 U/L (0-41) H 10/25/24 08:19 Alkaline Phosphatase 117 U/L (40-130) 10/25/24 08:19 Total Protein 9.3 g/dL (6.6-8.7) H 10/25/24 08:19 Albumin 5.2 g/dL (3.5-5.2) 10/25/24 08:19 Globulin 4.1 g/dL (1.3-4.6) 10/25/24 08:19 Lipase 43 U/L (13-60) 10/25/24 08:19 Levetiracetam 67.4 mcg/mL (6.0-46.0) H 10/25/24 08:46 Serum Ketones Negative (Negative) 10/25/24 08:19 All radiology interpretation(s) finalized by discharge Critical Care Time 2 Critical Care Time: Critical Care Time: Yes Total Critical Care Time: 120 Attestation: The high probability of a clinically significant, sudden or life threatening deterioration of the patient's cardiovascular respiratory neurologic system(s) required my full and direct attention, intervention and personal management. The critical care time is as shown. This time is in addition to time spent performing any reported procedures but includes the following: [x] Data and vital sign review and interpretation [x] Patient assessment, examination and intervention [x] Documentation [x] Medication orders and management Discharge Plan Discharge Patient Disposition: Xfer Short-Term Hosp Clinical Impression: Status epilepticus, Paraplegia, DM type 2 (diabetes mellitus, type 2), Aspiration pneumonia, Chronic indwelling Peña catheter, Neurogenic bladder Condition: Stable Referrals: Broderick Pope MD [Primary Care Provider, Internal Medicine] Print Language: Lao Coding Level of Care Code ED Gear Repair Supervisor for Amarjit Cancino
[2024-10-25] MEDS: propofol 10 mg/mL SDV 20 mL 50 MG IVP ×2 (10:15→10:47)
--- NOTE | 2024-10-25 10:41 | PC.PHAR ---
Pt intubated-verified medications with [facility] with last fill dates and day supply entered.
[2024-10-25] MEDS: propofol 1,000 MG/100 ML INJ 39.19 MG IV (10:47)
--- NOTE | 2024-10-25 10:48 | PC.NURSE ---
AT 1015, 50MG OF PROPOFOL ADMINISTERED IVP BY DR. AGUILAR FOR CT SCAN. ONCE PT WAS BACK IN THE ROOM, ANOTHER 50MG PROPOFOL ADMINISTERED VIA IVP BY DR. AGUILAR TO BE ABLE TO OBTAIN BLOOD GAS.
[2024-10-25 11:09] LABS: ABG PCO2 36.9 mmHg (35-45); Arterial Blood Gas Hematocrit 57.7 % (42-52); Base Excess ABG -1.7 mmol/L (-2.0-2.0); Blood Gas Allen Test Pos; Blood Gas Operator Identificat NY; Blood Gas Sample Site Radial, right; Blood Gas Sample Type Arterial; HCO3 ABG 22.7 mmol/L (22-26); Oxygen Device VENT; PO2 FiO2 Ratio Arterial Blood 102
[2024-10-25 11:11] LABS: Blood Gas CCRB Time 1112
[2024-10-25] MEDS: sodium chloride 0.9% 1,000 ML 999 ML IV (11:18)
[2024-10-25] MEDS: midazolam hcl 100 MG/100 ML BAG IV (11:26)
[2024-10-25] MEDS: fentaNYL 1,000 MCG/100 ML BAG 5 MCG IV (11:26)
[2024-10-25] MEDS: iohexol 350 mg/mL 500 mL Btl (per mL) IV (11:38)
[2024-10-25] MEDS: sodium chloride 0.9% 2,449.41 ML 2449.41 ML IV (12:23)
[2024-10-25] MEDS: propofol 1,000 MG/100 ML INJ 34.29 MG IV (13:37)
--- NOTE | 2024-10-25 16:12 | PC.NURSE ---
PT BRIEF CHANGED AND PERICARE DONE.
[2024-10-25] MEDS: sodium chloride 0.9% 1,000 ML 150 ML IV ×2 (16:23→22:20)
--- NOTE | 2024-10-25 17:18 | PC.NURSE ---
ATTEMPTED TO CONTACT SONALEK, BY THE NUMBER LISTED IN PATIENT CHART. NO ANSWER. MESSAGE LEFT TO CALL BACK.
[2024-10-25] MEDS: propofol 1,000 MG/100 ML INJ 22.05 MG IV ×2 (17:35→21:19)
[2024-10-25 17:41] LABS: Glucose Point of Care 286 mg/dL (70-110)
--- NOTE | 2024-10-25 17:45 | PC.NURSE ---
PT SON CALLED REQUESTING UPDATE. PT SON UPDATED ON PT STATUS AND TRANSFER STATUS. PT SON VERBALIZED UNDERSTANDING AND DENIED ANY FURTHER QUESTIONS. PT SON PHONE NUMBER LISTED ON PT CHART INCORRECT, PER SON. SON TRANSFERRED TO REGISTRATION TO UPDATE CONTACT INFORMATION.
[2024-10-25] MEDS: fentaNYL 1,000 MCG/100 ML BAG 7.5 MCG IV (21:22)
[2024-10-26 07:30] LABS: Levetiracetam Immunoassy 67.4 mcg/mL (6.0-46.0)
== END 2024-10-25 22:05 | disposition short-term general hospital (02) ==
PROVIDERS: Emergency Provider Family Medicine; PCP Internal Medicine
DX: G40.901 Epilepsy, unspecified, not intractable, with status epilepticus (principal); G82.20 Paraplegia, unspecified; E11.9 Type 2 diabetes mellitus without complications; J69.0 Pneumonitis due to inhalation of food and vomit; N31.9 Neuromuscular dysfunction of bladder, unspecified; Z96.0 Presence of urogenital implants; Z72.0 Tobacco use; I10 Essential (primary) hypertension
CPT/HCPCS: 31500; 36415; 36416; 36600; 70450; 71045; 74177; 80051; 80053; 80177; 82009; 82330; 82803; 82805; 82962; 83690; 83735; 85025; 87040; 87070; 93005; 94003; 94799; 96365; 96366; 96367; 96375; 99291; 99292; J1953; J2060; J2250; J2543; J2704; J3010; J3490; J7030

== ENCOUNTER → 2024-11-10 09:05 | Outpatient (BNVA) | payer MEDICARE, MEDICAID, SELFPAY | PROVIDERS: PCP Internal Medicine; Visit Provider Thoracic Surgery (Cardiothoracic Vascular Surgery) | DX: I96 Gangrene, not elsewhere classified (principal); L89.324 Pressure ulcer of left buttock, stage 4; L89.153 Pressure ulcer of sacral region, stage 3; L89.312 Pressure ulcer of right buttock, stage 2 | CPT/HCPCS: 11042; 97597; A6220; A6248 ==

== ENCOUNTER → 2024-11-17 09:18 | Outpatient (BNVA) | payer MEDICARE, MEDICAID, SELFPAY | PROVIDERS: PCP Internal Medicine; Visit Provider Thoracic Surgery (Cardiothoracic Vascular Surgery) | DX: I96 Gangrene, not elsewhere classified (principal); L89.324 Pressure ulcer of left buttock, stage 4 | CPT/HCPCS: 97597; 97598; A6210; A6248 ==

== ENCOUNTER 2024-11-30 16:48 | Emergency (ER) | payer MEDICARE, MEDICAID, SELFPAY ==
[2024-11-30] VITALS (8 sets, daily range): BP systolic 91–112; BP diastolic 54–84; PULSE 99–138; RESP 16–18; TEMP 36.6–39.3; O2SAT 93–96
--- NOTE | 2024-11-30 17:11 | XRR_ITS ---
PROCEDURE INFORMATION: Exam: XR Chest Exam date and time: 11/30/2024 5:23 PM Age: 39 years old Clinical indication: Fever TECHNIQUE: Imaging protocol: Radiologic exam of the chest. Views: 1 view. COMPARISON: CR XR chest 1V portable [id number] 10/25/2024 7:59 AM FINDINGS: Lungs: Unremarkable. No consolidation. Pleural spaces: Unremarkable. No pleural effusion. No pneumothorax. Heart/Mediastinum: Unremarkable. No cardiomegaly. Bones/joints: Partially visualized spine fusion hardware. XR/XR chest 1V portable [id number] IMPRESSION: No acute cardiopulmonary findings.
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
[2024-11-30] MEDS: acetaminophen 325 mg Tablet 650 MG PO (17:47)
[2024-11-30] MEDS: sodium chloride 0.9% 1,000 ML 999 ML IV ×2 (17:47→19:44)
[2024-11-30 17:56] LABS: Basophils % 0.2 %; Eosinophils % 0.3 %; Lymphocytes # 0.8 10^3/uL (0.8-4.8); Lymphocytes % 6.4 %; Mean Corpuscular HGB Conc 35.5 g/dL (30-55); Mean Corpuscular Hemoglobin 32.9 pg (27-33); Mean Corpuscular Volume 92.7 fl (82-101); Mean Platelet Volume 9.5 fL (7.4-10.4); Monocytes % 8.2 %; Neutrophils # 10.15 10^3/uL (1.8-7.7); Neutrophils % 84.4 %; Nucleated Red Blood Cells % 0 %; Platelet Count 214 10^3/cmm (157-399); Red Blood Count 4.53 10^6/uL (3.85-5.65); Red Cell Distribution Width 13.8 % (12.1-15.1); White Blood Count 12.02 10^3/uL (3.29-11.43)
[2024-11-30 18:09] LABS: Alanine Aminotransferase 40 U/L (0-41); Albumin Level 4.4 g/dL (3.5-5.2); Alkaline Phosphatase 103 U/L (40-130); Anion Gap 15.9 (5-19); Aspartate Amino Transferase 19 U/L (0-40); Blood Urea Nitrogen 16 mg/dL (6-20); Calcium 9.2 mg/dL (8.5-10.5); Carbon Dioxide 23 mmol/L (22-29); Chloride 94 mmol/L (98-107); Creatinine Clr Calc Pharmacy 97.6354; Globulin 3.7 g/dL (1.3-4.6); Glomerular Filtration Rate 74.1 mL/min (90-130); Glucose 177 mg/dL (65-115); Osmolality Calculated 276 mOsm/kg (285-295); Sodium 130 mmol/L (136-145); Total Bilirubin 0.6 mg/dL (0.15-1.2); Total Protein 8.1 g/dL (6.6-8.7)
[2024-11-30 18:10] LABS: Lactic Sepsis W/Reflex 1.2 mmol/L (0.5-2.2)
[2024-11-30 18:14] LABS: Potassium 2.9 mmol/L (3.5-5.1)
[2024-11-30 18:15] LABS: Bilirubin Urine Negative (Negative); Blood Urine Non-haemolysed trace (Negative); Glucose Urine UA Negative (Normal); Ketones Urine Negative (Negative); Leukocyte Esterase Urine 3+ (Negative); Nitrate Urine Positive (Negative); Protein Urine 1+ (Negative); Specific Gravity, Urine 1.014 (1.005-1.030); Urine Appearance Cloudy (CLEAR); Urine Color Yellow (Yellow); pH Urine 7.5 (5-7)
[2024-11-30 18:18] LABS: Add Urine Microscopic? YES; Bacteria Urine 4+ /hpf; Hyaline Casts Urine 13.22 /lpf; RBC Urine 0-2 /hpf (0-2); WBC Urine 51-100 /hpf (0-5)
[2024-11-30 18:40] LABS: UA Slide Review UA Slide Review Perf
[2024-11-30 18:41] LABS: Add Urine Culture? Yes
[2024-11-30] MEDS: sulfamethoxazole-trimeth DS 160-800 mg Tablet 1 TAB PO (18:50)
[2024-11-30] MEDS: potassium chloride ER 20 mEq Tablet 40 MEQ PO (18:50)
[2024-11-30] MEDS: ketorolac 30 mg/mL INJ 15 MG IVP (18:51)
== END 2024-11-30 20:40 | disposition home or self-care (01) ==
PROVIDERS: Emergency Provider Student in an Organized Health Care Education/Training Program; PCP Internal Medicine
DX: N39.0 Urinary tract infection, site not specified (principal); E87.6 Hypokalemia; G82.20 Paraplegia, unspecified; Z79.899 Other long term (current) drug therapy; Z79.84 Long term (current) use of oral hypoglycemic drugs
CPT/HCPCS: 36415; 71045; 80053; 81001; 83605; 85025; 87040; 87077; 87086; 87186; 96361; 96374; 99284; J1885; J7030; J9999

== ENCOUNTER → 2024-12-08 10:20 | Outpatient (BNVA) | payer MEDICARE, MEDICAID, SELFPAY | PROVIDERS: PCP Internal Medicine; Visit Provider Thoracic Surgery (Cardiothoracic Vascular Surgery) | DX: I96 Gangrene, not elsewhere classified (principal); L89.324 Pressure ulcer of left buttock, stage 4; L89.153 Pressure ulcer of sacral region, stage 3; L89.312 Pressure ulcer of right buttock, stage 2 | CPT/HCPCS: 97597 ==

== ENCOUNTER → 2025-01-16 09:45 | Outpatient (BNVA) | payer MEDICARE, MEDICAID, SELFPAY | PROVIDERS: PCP Internal Medicine; Visit Provider Thoracic Surgery (Cardiothoracic Vascular Surgery) | DX: I96 Gangrene, not elsewhere classified (principal); L89.324 Pressure ulcer of left buttock, stage 4; Z09 Encounter for follow-up examination after completed treatment for conditions other than malignant neoplasm | CPT/HCPCS: 97597; A6210 ==

== ENCOUNTER → 2025-02-13 09:33 | Outpatient (BNVA) | payer MEDICARE, MEDICAID, SELFPAY | PROVIDERS: PCP Internal Medicine; Visit Provider Thoracic Surgery (Cardiothoracic Vascular Surgery) | DX: I96 Gangrene, not elsewhere classified (principal); L89.324 Pressure ulcer of left buttock, stage 4 | CPT/HCPCS: 97597; A6210 ==

== ENCOUNTER → 2025-03-15 08:02 | Outpatient (BNVA) | payer MEDICARE, MEDICAID, SELFPAY | PROVIDERS: PCP Internal Medicine; Visit Provider Thoracic Surgery (Cardiothoracic Vascular Surgery) | DX: I96 Gangrene, not elsewhere classified (principal); L89.324 Pressure ulcer of left buttock, stage 4 | CPT/HCPCS: 97597; A6210 ==

== ENCOUNTER 2025-04-12 10:07 | Outpatient (CLI) | payer MEDICARE, MEDICAID, SELFPAY | END 2025-04-12 10:08 | disposition home or self-care (01) | LOC: LAB 10:10 | PROVIDERS: PCP Internal Medicine; Visit Provider Thoracic Surgery (Cardiothoracic Vascular Surgery) | DX: I96 Gangrene, not elsewhere classified (principal); L89.324 Pressure ulcer of left buttock, stage 4 | CPT/HCPCS: 97597; A6210 ==

== ENCOUNTER → 2025-05-12 10:01 | Outpatient (BNVA) | payer MEDICARE, MEDICAID, SELFPAY | PROVIDERS: PCP Internal Medicine; Visit Provider Thoracic Surgery (Cardiothoracic Vascular Surgery) | DX: I96 Gangrene, not elsewhere classified (principal); L89.324 Pressure ulcer of left buttock, stage 4 | CPT/HCPCS: 97597; A6212 ==

== ENCOUNTER → 2025-06-09 09:49 | Outpatient (BNVA) | payer MEDICARE, MEDICAID, SELFPAY | PROVIDERS: PCP Internal Medicine; Visit Provider Thoracic Surgery (Cardiothoracic Vascular Surgery) | DX: I96 Gangrene, not elsewhere classified (principal); L89.324 Pressure ulcer of left buttock, stage 4 | CPT/HCPCS: 97597; A6212 ==